=== PATIENT | female | born 1990 | race Caucasian/White ===

== ENCOUNTER 2020-09-07 12:51 | Emergency (ER) | payer OTHER, SELFPAY ==
[2020-09-07 12:57] VITALS: BP 119/68; PULSE 80; RESP 16; TEMP 36.9; O2SAT 99
--- NOTE | 2020-09-07 13:49 | ED.URI ---
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 Patient states that she has been taking Tylenol and using Chloraseptic spray with no improvement in her sore throat, rates her pain as 4/10 describes as aching with increase in her pain with swallowing.Patient denies any ear pain, acute cough, or any known fevers, states nasal drainage and post nasal drainage of clear to yellow tinged with some facial pressure. MD elicited complaint: sore throat, rhinorrhea, nasal congestion and other (pressure to face) Pertinent past history: sinusitis and other (bronchitis, tobacco abuse) Onset (ago): week(s) (2 weeks sinus, 2 days sore throat) Consistency: constant Severity: moderate Pain scale (0-10): 4 Description of mucous: clear and yellow Able to tolerate fluids by mouth: Yes Exacerbating factors: swallowing Relieving factors: nothing Associated symptoms: rhinorrhea, nasal congestion and sore throat Treatments prior to arrival: acetaminophen and other (chloraseptic spray) Related Data Allergies Allergy/AdvReac Type Severity Reaction Status Date / Time No Known Allergies Allergy Verified 09/07/20 13:09 Review of Systems Review of Systems: Narrative: CONSTITUTIONAL: Denies fever, chills, or sweats. EYES: Denies visual changes, redness, or discharge. ENT: Positive for rhinorrhea,sinus congestion,facial pressure, sore throat, no otalgia. CARDIOVASCULAR: Denies chest pain, palpitations, or edema. RESPIRATORY: Denies cough or dyspnea. GASTROINTESTINAL: Denies abdominal pain, nausea, vomiting, or diarrhea. GENITOURINARY: Denies dysuria or hematuria. SKIN: Denies rash or itching. MUSCULOSKELETAL: Denies back pain, joint pain, or myalgia. NEUROLOGIC: Denies headache, numbness, or weakness. PSYCHIATRIC:Positive history of anxiety or depression. All systems reviewed & are unremarkable except as noted in HPI and below [facility] Past Medical History Medical History (Updated 09/08/20 @ 09:48 by Sade Giang NP) Anxiety and depression Bronchitis Migraines Sinusitis Surgical History Surgical History (Updated 09/08/20 @ 09:45 by Sade Giang NP) History of tubal ligation Previous section Family History Family History (Updated 09/08/20 @ 09:47 by Sade Giang NP) Other No significant family history Social History Social History (Updated 09/08/20 @ 09:46 by Sade Giang NP) Smoking packs per day: 0.5 Smoking cigarettes per day: 10.0 Years smoked: 13 Smoking pack-years: 6.50 Smoking status: Current every day smoker Tobacco type: cigarettes Alcohol intake: current Alcohol use details: social Substance use: never Living arrangements: with family Occupation/Education: other 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 There is no relevant family history pertinent to the presenting complaint Exam Narrative: Exam Narrative: GENERAL: Well-appearing, well-nourished, and in no acute distress. HEAD: Normocephalic, atraumatic. EYES: PERRLA and EOMI. ENT: Nares red with swollen turbinates, clear to yellow tinged rhinorrhea no epistaxis. Mucous membranes moist.TM's normal with dull light reflex, throat red with no lesions or exudate no acute tonsil swelling, post nasal drainage present in back of throat. NECK: Supple.no lymphadenopathy CHEST: Clear to auscultation. N
== END 2020-09-07 14:05 | disposition home or self-care (01) ==
PROVIDERS: Emergency Provider Registered Nurse
DX: J32.9 Chronic sinusitis, unspecified (principal); J02.9 Acute pharyngitis, unspecified; F17.210 Nicotine dependence, cigarettes, uncomplicated
CPT/HCPCS: 87081; 87880; 99213; G0463

== ENCOUNTER 2021-03-30 17:38 | Emergency (ER) | payer OTHER, SELFPAY ==
[2021-03-30 17:44] VITALS: BP 121/73; PULSE 95; RESP 16; TEMP 36.6; O2SAT 100
[2021-03-30 17:57] VITALS: BP 121/73; PULSE 95; RESP 16; TEMP 36.6; O2SAT 100
--- NOTE | 2021-03-30 18:11 | ED.URI ---
HPI - URI/Sore Throat General Chief Complaint: Upper Respiratory Infection Stated Complaint: sore throat body aches Source: patient Mode of arrival: ambulatory Limitations: no limitations History of Present Illness HPI Narrative: 30-year-old female presents to [facility] with complaints of nonproductive cough, shortness of breath, wheezing, body aches and headache for the past 4 days. Patient reports that 3 of her children currently have strep throat. Patient reports that she gets tested weekly for Covid at her job and her Covid test was negative today. Patient is a smoker. Patient denies recent travel. Patient has been taking [id number] DayQuil with minimal relief. MD elicited complaint: cough Onset (ago): day(s) (4) Able to tolerate fluids by mouth: Yes Related Data Allergies Allergy/AdvReac Type Severity Reaction Status Date / Time No Known Allergies Allergy Verified 03/30/21 17:56 Review of Systems Constitutional: Constitutional: Reports chills, Denies fatigue, Denies fever(s) and Denies weakness ENT: Denies dysphagia, Denies dizziness, Denies epistaxis and Reports sore throat Cardiovascular: Cardiovascular: Denies chest pain, Denies rapid heart rate and Denies radiating jaw, neck or arm pain Respiratory: Respiratory: Denies chest congestion, Reports cough, Reports dyspnea and Reports wheezing Gastrointestinal: Gastrointestinal: Denies abdominal pain, Denies diarrhea, Denies nausea and Denies vomiting Integumentary/Breasts: Skin/Breast: Denies rash PMFSH Past Medical History Medical History Anxiety and depression Bronchitis Migraines Sinusitis Surgical History Surgical History History of tubal ligation Previous section Family History Family History Other No significant family history Social History Social History Smoking packs per day: 0.5 Smoking cigarettes per day: 10.0 Years smoked: 13 Smoking pack-years: 6.50 Smoking status: Current every day smoker Tobacco type: cigarettes Alcohol intake: current Alcohol use details: social Substance use: never 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 There is no relevant family history pertinent to the presenting complaint. Exam Const: General: healthy appearing and no acute distress Orientation/consciousness: patient oriented x3 HENMT: Head: normal to inspection Ears: external ears normal General nose exam: Normal external nose present Face and sinus: sinuses nontender Mouth: Yes Normal oral and palatal mucosa present and Yes lip normal Throat: uvula midline Other: Mild erythema noted to posterior pharynx. Mild erythema and swelling noted to bilateral tonsils. Neck: Neck: normal visual inspection Resp: Effort & Inspection: normal respiratory effort and not tachypneic Auscultation: clear to auscultation bilaterally, no rales, no rhonchi and no wheezes Other: Frequent harsh nonproductive cough noted Cardio: Rate: regular rate, not bradycardic and not tachycardic Rhythm: regular rhythm Skin: General skin exam: normal color Rashes: no rashes Wounds: no wounds Neuro: General: patient oriented x3 and moves all extremities Course Vital Signs Vital signs: Vital Signs Temperature 36.6 C 03/30/21 17:44 Pulse Rate 95 03/30/21 17:44 Respiratory Rate 16 03/30/21 17:44 Blood Pressure 121/73 03/30/21 17:44 Pulse Oximetry 100 03/30/21 17:44 Temperature 36.6 C 03/30/21 17:57 Pulse Rate 95 03/30/21 17:57 Respiratory Rate 16 03/30/21 17:57 Blood Pressure 121/73 03/30/21 17:57 Pulse Oximetry
== END 2021-03-30 18:18 | disposition home or self-care (01) ==
PROVIDERS: Emergency Provider Nurse Practitioner Family
DX: J40 Bronchitis, not specified as acute or chronic (principal); J02.9 Acute pharyngitis, unspecified; F17.210 Nicotine dependence, cigarettes, uncomplicated
CPT/HCPCS: 87081; 87880; 99213; G0463

== ENCOUNTER 2021-10-17 08:52 | Emergency (ER) | payer OTHER, SELFPAY ==
--- NOTE | ~2021-10-17 | XR_ITS ---
EXAMINATION: XR hand RT min 3V DATE: 10/17/2021 09:15 INDICATION: Right hand injury and pain. TECHNIQUE: 3 views of right hand were obtained. COMPARISON: None. FINDINGS: Bone alignment is normal. No fracture. Joint spaces are well maintained. IMPRESSION: 1. Normal right hand. Reviewed, dictated and finalized at location A. [employer] IMPRESSION: 1. Normal right hand.
[2021-10-17 08:58] VITALS: BP 110/63; PULSE 108; RESP 16; TEMP 36.9; O2SAT 98
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
[2021-10-17] MEDS: KETOROLAC (*BKC) 60 MG/2 ML VIAL IM (09:24)
== END 2021-10-17 09:46 | disposition home or self-care (01) ==
PROVIDERS: Emergency Provider Nurse Practitioner Family
DX: S69.91XA Unspecified injury of right wrist, hand and finger(s), initial encounter (principal); W23.0XXA Caught, crushed, jammed, or pinched between moving objects, initial encounter; F41.9 Anxiety disorder, unspecified; F32.9 Major depressive disorder, single episode, unspecified; F17.210 Nicotine dependence, cigarettes, uncomplicated
CPT/HCPCS: 73130; 96372; 99213; G0463; J1885

== ENCOUNTER 2021-11-12 19:38 | Emergency (ER) | payer OTHER, SELFPAY ==
[2021-11-12 19:44] VITALS: BP 124/69; PULSE 98; RESP 16; TEMP 37.1; O2SAT 100
--- NOTE | 2021-11-12 19:55 | ED.DENTAL ---
HPI - Dental/Oral General Stated complaint: poss thrush Time Seen by Provider: 11/12/21 19:55 Source: patient and RN notes reviewed History of Present Illness HPI Narrative: Patient is a 31-year-old female who presents the urgent care with complaints of possible thrush of the tongue. Patient states that she had it approximately 2 months ago after starting several new medications. Denies of being on a steroid or the use of an inhaler. Patient states she noticed it just a couple days ago and is try to brush the tongue really hard and has had no improvement. No other acute complaints. Denies a sore throat. No acute distress noted. Patient aware of the care. Some parts of this dictation were generated by voice recognition software and may contain typographical and/or grammatical inaccuracies. Related Data Home Medications Medication Instructions Recorded Confirmed hydroxyzine pamoate 50 mg PO Q6-8H 10/17/21 10/17/21 naltrexone 50 mg PO DAILY 10/17/21 10/17/21 quetiapine 200 mg PO HS 10/17/21 10/17/21 venlafaxine 37.5 mg PO DAILY 10/17/21 10/17/21 Allergies Allergy/AdvReac Type Severity Reaction Status Date / Time tramadol Allergy Hallucinati Verified 11/12/21 19:41 ng Review of Systems Review of Systems: CONSTITUTIONAL: Denies fever, chills, or sweats. EYES: Denies visual changes, redness, or discharge. ENT: Denies rhinorrhea, congestion, sore throat, or otalgia. Reports of possible oral thrush CARDIOVASCULAR: Denies chest pain, palpitations, or edema. RESPIRATORY: Denies cough or dyspnea. GASTROINTESTINAL: Denies abdominal pain, nausea, vomiting, or diarrhea. GENITOURINARY: Denies dysuria or hematuria. SKIN: Denies rash or itching. MUSCULOSKELETAL: Denies back pain, joint pain, or myalgia. NEUROLOGIC: Denies headache, numbness, or weakness. All other systems reviewed are negative, except as documented in HPI. [facility] Past Medical History Medical History Anxiety and depression Bronchitis Migraines Sinusitis Surgical History Surgical History History of tubal ligation Previous section Family History Family History Other No significant family history Social History Social History Smoking packs per day: 0.5 Smoking cigarettes per day: 10.0 Years smoked: 13 Smoking pack-years: 6.50 Smoking status: Current every day smoker Tobacco type: cigarettes Alcohol intake: current Alcohol use details: social Substance use: never Additional occupation/education comments: [employer] Gender identity (if verbalized by the patient): Female Comments At the time of my signature, I reviewed and agree with the nursing past medical, surgical, social, and family history. There is no relevant family history pertinent to the patient complaint. Exam Narrative: GENERAL: This is a well-nourished, well-developed patient, in no apparent distress. HEAD: normocephalic, atraumatic. EYES: PERRL. Sclera clear/white. Vision is grossly intact. EARS: External ears normal, auditory canals clear and without drainage, TMs normal without perforation. Hearing grossly intact. NOSE: External nose normal with no obvious nasal discharge, nares without redness, no rhinorrhea. THROAT: Mucous membranes moist, posterior pharynx clear. Very mild white hairy tongue NECK: Neck supple CARDIOVASCULAR: Regular rate and rhythm without murmurs, gallops, or rubs. RESPIRATORY: Clear to auscultation. Breath sounds equal bilaterally. No wheezes, rales, or rhonchi. SKIN: warm, intact with no suspicious lesions or rash, good texture and turgor. NEURO: awake, alert, and oriented to person, place and time. There were no obvious focal neurologic abnormalities. EXTREMITIES: No clubb
[2021-11-12 19:57] VITALS: BP 124/69; PULSE 98; RESP 16; TEMP 37.1; O2SAT 100
== END 2021-11-12 20:05 | disposition home or self-care (01) ==
PROVIDERS: Emergency Provider Nurse Practitioner Family
DX: B37.0 Candidal stomatitis (principal); F17.210 Nicotine dependence, cigarettes, uncomplicated; F41.9 Anxiety disorder, unspecified; F32.A Depression, unspecified
CPT/HCPCS: 99213; G0463

== ENCOUNTER 2021-12-19 08:52 | Emergency (ER) | payer OTHER, SELFPAY ==
[2021-12-19 09:01] VITALS: BP 120/65; PULSE 82; RESP 16; TEMP 36.6; O2SAT 98
--- NOTE | 2021-12-19 09:01 | ED.EAR ---
HPI - Ear Problem General Chief complaint: Ear Stated complaint: Ear Pain Time Seen by Provider: 12/19/21 09:00 Source: patient, RN notes reviewed and old records reviewed Mode of arrival: ambulatory Limitations: no limitations History of Present Illness HPI Narrative: 31 year old female who presents to [facility] care with complaints of left ear pain for the past week. Patient denies any cough or congestion states some sinus drainage but has history of environmental allergies. Patient reports that she has been taking Ibuprofen and Tylenol for her discomfort. Patient reports that she has decreased hearing to her left ear. MD Complaint: ear pain Location: left ear Duration: constant Associated symptoms ear: decreased hearing and external ear tenderness Treatment prior to arrival: oral analgesic Related Data Home Medications Medication Instructions Recorded Confirmed hydroxyzine pamoate 50 mg PO Q4H PRN 10/17/21 12/19/21 quetiapine 200 mg PO HS 10/17/21 12/19/21 venlafaxine 37.5 mg PO DAILY 10/17/21 12/19/21 trazodone 50 mg PO HS 11/12/21 12/19/21 Allergies Allergy/AdvReac Type Severity Reaction Status Date / Time No Known Allergies Allergy Verified 12/19/21 09:15 Review of Systems Review of Systems: CONSTITUTIONAL: Denies fever, chills, or sweats. EYES: Denies visual changes, redness, or discharge. ENT: Positive rhinorrhea, minimal nasal congestion,no sore throat, positive for left otalgia. CARDIOVASCULAR: Denies chest pain, palpitations, or edema. RESPIRATORY: Denies cough or dyspnea. GASTROINTESTINAL: Denies abdominal pain, nausea, vomiting, or diarrhea. GENITOURINARY: Denies dysuria or hematuria. SKIN: Denies rash or itching. MUSCULOSKELETAL: Denies back pain, joint pain, or myalgia. NEUROLOGIC: Denies headache,no numbness, or weakness. PSYCHIATRIC: Positive anxiety or depression. All systems reviewed & are unremarkable except as noted in HPI and below PMFSH Past Medical History Medical History Anxiety and depression Bronchitis Migraines Sinusitis Surgical History Surgical History History of tubal ligation Previous section Family History Family History Other No significant family history Social History Social History (Updated 12/19/21 @ 09:30 by Sade Giang NP) Smoking packs per day: 0.5 Smoking cigarettes per day: 10.0 Years smoked: 13 Smoking pack-years: 6.50 Smoking status: Current every day smoker Tobacco type: cigarettes Alcohol intake: former Alcohol use details: presently attending AA Substance use: never 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 There is no relevant family history pertinent to the presenting complaint Exam Narrative: GENERAL: Well-appearing, well-nourished, and in no acute distress. HEAD: Normocephalic, atraumatic. EYES: PERRLA and EOMI. ENT: Nares with minimal redness with clear rhinorrhea no epistaxis. Mucous membranes moist.Right TM normal with good light reflex, left TM pale canal red and excoriated with crusting to canal and also irritation to outer ear, throat ink with no lesions or exudates or tonsil swelling NECK: Supple. no lymphadenopathy CHEST: Clear to auscultation. No respiratory distress.SAO2 98% on room air HEART: Regular rate and rhythm. No murmur heard. Normal peripheral pulses. ABDOMEN: Soft, nontender, nondistended, normal active bowel sounds. EXTREMITIES: Normal range of motion. No edema. SKIN: Warm, dry, no rash. NEURO: No focal deficits. Alert and oriented x3. Course Course Level of Care: Express Care Visit Vital Signs Vital signs: Vital Signs Thompson
== END 2021-12-19 09:25 | disposition home or self-care (01) ==
PROVIDERS: Emergency Provider Registered Nurse
DX: H60.392 Other infective otitis externa, left ear (principal); F17.210 Nicotine dependence, cigarettes, uncomplicated
CPT/HCPCS: 99213; G0463

== ENCOUNTER 2022-08-04 13:19 | Emergency (ER) | payer OTHER, SELFPAY ==
--- NOTE | 2022-08-04 13:21 | ED.URI ---
HPI - URI/Sore Throat General Chief Complaint: Upper Respiratory Infection Stated Complaint: cold flu Time Seen by Provider: 08/04/22 13:21 Source: patient and RN notes reviewed History of Present Illness HPI Narrative: patient is a 32-year-old female who presents to urgent care with complaints of cold and flu-like symptoms for the last 4 days. Patient denies any recent fevers. Reports of a cough and nasal congestion. Patient has been taking Tylenol. No other acute complaints. No acute distress noted. Patient aware of the plan of care. Some parts of this dictation were generated by voice recognition software and may contain typographical and/or grammatical inaccuracies. Related Data Home Medications Medication Instructions Recorded Confirmed hydroxyzine pamoate 50 mg capsule 50 mg PO Q4H PRN Anxiety 10/17/21 12/19/21 quetiapine 200 mg tablet 200 mg PO HS 10/17/21 12/19/21 venlafaxine 37.5 mg 37.5 mg PO DAILY 10/17/21 12/19/21 capsule,extended release 24 hr trazodone 50 mg tablet 50 mg PO HS 11/12/21 12/19/21 Allergies Allergy/AdvReac Type Severity Reaction Status Date / Time No Known Allergies Allergy Verified 08/04/22 13:38 Review of Systems Review of Systems: CONSTITUTIONAL: Denies fever, chills, or sweats. EYES: Denies visual changes, redness, or discharge. ENT: reports nasal congestion postnasal drainage CARDIOVASCULAR: Denies chest pain, palpitations, or edema. RESPIRATORY: Reports cough without dyspnea GASTROINTESTINAL: Denies abdominal pain, nausea, vomiting, or diarrhea. GENITOURINARY: Denies dysuria or hematuria. SKIN: Denies rash or itching. MUSCULOSKELETAL: Denies back pain, joint pain, or myalgia. NEUROLOGIC: Denies headache, numbness, or weakness. All other systems reviewed are negative, except as documented in HPI. 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 There is no relevant family history pertinent to the patient complaint. Exam Narrative: GENERAL: This is a well-nourished, well-developed patient, in no apparent distress. HEAD: normocephalic, atraumatic. EYES: PERRL. Sclera clear/white. Vision is grossly intact. EARS: External ears normal, auditory canals clear and without drainage, TMs normal without perforation. Hearing grossly intact. NOSE: External nose normal with no obvious nasal discharge, nares without redness, no rhinorrhea. THROAT: Mucous membranes moist, posterior pharynx clear. moderate postnasal drainage NECK: Neck supple, non-tender without lymphadenopathy CARDIOVASCULAR: Regular rate and rhythm without murmurs, gallops, or rubs. RESPIRATORY: Clear to auscultation. Breath sounds equal bilaterally. No wheezes, rales, or rhonchi. SKIN: warm, intact with no suspicious lesions or rash, good texture and turgor. NEURO: awake, alert, and oriented to person, place and time. There were no obvious focal neurologic abnormalities. EXTREMITIES: No clubbing, cyanosis, or edema. Course C
[2022-08-04 13:24] VITALS: BP 113/71; PULSE 70; RESP 16; TEMP 36.9; O2SAT 99
== END 2022-08-04 13:57 | disposition home or self-care (01) ==
PROVIDERS: Emergency Provider Nurse Practitioner Family; PCP Physician Assistant
DX: J06.9 Acute upper respiratory infection, unspecified (principal); F17.210 Nicotine dependence, cigarettes, uncomplicated
CPT/HCPCS: 99211; G0463

== ENCOUNTER 2022-08-13 16:00 | Emergency (ER) | payer OTHER, SELFPAY ==
[2022-08-13 16:07] VITALS: BP 103/59; PULSE 90; RESP 16; TEMP 36.7; O2SAT 98
--- NOTE | 2022-08-13 17:16 | ED.GENADULT ---
HPI - General Adult General Chief complaint: Upper Respiratory Infection Stated complaint: upper respiratory Source: patient Mode of arrival: ambulatory Limitations: no limitations History of Present Illness HPI narrative: Patient presents for evaluation of sick symptoms for just over a week. She indicates she was evaluated here about a week ago same symptoms was told she had upper respiratory infection. Her symptoms have persisted. She now reports bilateral maxillary and frontal sinus pressure with mucopurulent discharge from her nares, and productive cough of green sputum. She has mild shortness of breath. She denies any fever, chills, nausea, vomiting. Her children have similar symptoms and were told that they have strep and a viral upper respiratory infection. 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 She states she took a COVID test three days ago which was negative. She used her child's albuterol inhaler and states that it did help her symptoms. She smokes half a pack per day. She has had COVID in the past. She is taking OTC agents with mild improvement in her symptoms thereafter. Related Data Home Medications Medication Instructions Recorded Confirmed hydroxyzine pamoate 50 mg capsule 50 mg PO Q4H PRN Anxiety 10/17/21 08/04/22 quetiapine 200 mg tablet 200 mg PO HS 10/17/21 08/04/22 venlafaxine 37.5 mg 37.5 mg PO DAILY 10/17/21 08/04/22 capsule,extended release 24 hr trazodone 50 mg tablet 50 mg PO HS 11/12/21 08/04/22 buspirone 7.5 mg tablet mg 08/13/22 Allergies Allergy/AdvReac Type Severity Reaction Status Date / Time No Known Allergies Allergy Verified 08/04/22 13:38 Review of Systems Review of Systems: CONSTITUTIONAL: Denies fever, chills, or sweats. EYES: Denies visual changes, redness, or discharge. ENT: Reports sinus congestion mucopurulent discharge from her nares. CARDIOVASCULAR: Denies chest pain, palpitations, or edema. RESPIRATORY: Reports productive cough of green sputum with mild shortness of breath GASTROINTESTINAL: Denies abdominal pain, nausea, vomiting, or diarrhea. GENITOURINARY: Denies dysuria or hematuria. SKIN: Denies rash or itching. MUSCULOSKELETAL: Denies back pain, joint pain, or myalgia. NEUROLOGIC: Denies headache, numbness, dizziness, or weakness. PSYCHIATRIC: Denies anxiety or depression. 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 HEAD: Normocephalic, atraumatic. EYES: PERRLA and EOMI. ENT: Nares clear, no rhinorrhea or epistaxis. Mucous membranes moist. Oropharynx without tonsillar hypertrophy exudate or other lesions. Bilateral TMs pearly lujan nonbulging NECK: Supple. No adenopathy or masses. No carotid bruits or JVD CHEST: Occasional cough on exam. Clear to auscultation. No respiratory distress. No wheezes rales or rhonchi HEART: Regular rate and rhythm. No murmur heard. Normal peripheral pulses. ABDOMEN: Soft, nontender, nondistended, normal active bowel sounds. EXTREMITIES: No
== END 2022-08-13 17:18 | disposition home or self-care (01) ==
PROVIDERS: Emergency Provider Nurse Practitioner; PCP Physician Assistant
DX: J32.9 Chronic sinusitis, unspecified (principal); F17.210 Nicotine dependence, cigarettes, uncomplicated; F41.9 Anxiety disorder, unspecified; F32.A Depression, unspecified; Z86.16 Personal history of COVID-19
CPT/HCPCS: 99213; G0463

== ENCOUNTER 2023-01-18 19:19 | Emergency (ER) | payer OTHER, SELFPAY ==
--- NOTE | 2023-01-18 19:26 | ED.EAR ---
HPI - Ear Problem General Stated complaint: cut earring off the ear Source: patient and RN notes reviewed History of Present Illness HPI Narrative: 32 yo F presents to urgent care with complaints of a stuck earring in the back of her right upper ear cartilage. Pt states she had her friend attempt to remove it but couldn't get it. Pt denies any inner ear pain, fevers, chills, or other complaints. Pt states she is currently taking Augmentin for a dental infection. Pt also states she is only supposed to take stainless steal in her ears but this was a $5 earring she bought. Related Data Home Medications Medication Instructions Recorded Confirmed hydroxyzine pamoate 50 mg capsule 50 mg PO Q4H PRN Anxiety 10/17/21 08/04/22 quetiapine 200 mg tablet 200 mg PO HS 10/17/21 08/04/22 venlafaxine 37.5 mg 37.5 mg PO DAILY 10/17/21 08/04/22 capsule,extended release 24 hr trazodone 50 mg tablet 50 mg PO HS 11/12/21 08/04/22 buspirone 7.5 mg tablet mg 08/13/22 venlafaxine 150 mg 150 mg PO DAILY 01/18/23 01/18/23 capsule,extended release 24 hr Allergies Allergy/AdvReac Type Severity Reaction Status Date / Time No Known Allergies Allergy Verified 01/18/23 19:37 Review of Systems Review of Systems: CONSTITUTIONAL: Denies fever, chills, or sweats. EYES: Denies visual changes, redness, or discharge. ENT: Denies otalgia and sore throat CARDIOVASCULAR: Denies chest pain, palpitations, or edema. RESPIRATORY: Denies cough or dyspnea. GASTROINTESTINAL: Denies abdominal pain, nausea, vomiting, or diarrhea. GENITOURINARY: Denies dysuria or hematuria. SKIN: earring stuck in right ear cartilage MUSCULOSKELETAL: Denies back pain, joint pain, or myalgia. NEUROLOGIC: Denies headache, numbness, or weakness. Pertinent positives per HPI. 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 There is no relevant family history pertinent to the patient complaint. Exam Narrative: GENERAL: This is a well-nourished, well-developed patient, in no apparent distress. HEAD: normocephalic, atraumatic. EYES: Sclera clear/white. Vision is grossly intact. EARS:circular, ring earring post stuck in back of right helix with mild swelling NOSE: External nose normal with no obvious nasal discharge, nares without redness, no rhinorrhea. THROAT: Mucous membranes moist, posterior pharynx clear. NECK: Neck supple, non-tender without lymphadenopathy, masses or thyromegaly. CARDIOVASCULAR: Regular rate RESPIRATORY: No respiratory distress SKIN: warm, intact with no suspicious lesions or rash, good texture and turgor. NEURO: awake, alert, and oriented to person, place and time. There were no obvious focal neurologic abnormalities. Course Course Level of Care: Express Care Visit Vital Signs Vital signs: reviewed. Procedures Foreign Body Removal Foreign Body #1: Foreign Body Removal Da
[2023-01-18 19:27] VITALS: BP 99/58; PULSE 85; RESP 18; TEMP 37.1; O2SAT 98
== END 2023-01-18 19:44 | disposition home or self-care (01) ==
PROVIDERS: Emergency Provider Nurse Practitioner Family; PCP Physician Assistant
DX: S01.341A Puncture wound with foreign body of right ear, initial encounter (principal); X58.XXXA Exposure to other specified factors, initial encounter; F41.9 Anxiety disorder, unspecified; F32.A Depression, unspecified
CPT/HCPCS: 99212; G0463

== ENCOUNTER 2023-04-28 09:14 | Emergency (ER) | payer OTHER, SELFPAY ==
[2023-04-28 09:20] VITALS: BP 107/64; PULSE 93; RESP 16; TEMP 36.5; O2SAT 99
--- NOTE | 2023-04-28 09:32 | ED.URI ---
HPI - URI/Sore Throat General Chief Complaint: Upper Respiratory Infection Stated Complaint: Shortness of Breath/Body Ache/Fever History of Present Illness HPI Narrative: Patient presents with cough productive at times states she had a fever this morning no shortness of breath and no chest pain. Patient is a 10 year half a pack a day smoker. Patient states all of her children were in and diagnosed with upper respiratory symptoms 2 days ago. Patient reports her symptoms started 2 days ago and she is not taking anything [id number] for her symptoms. Related Data Home Medications Medication Instructions Recorded Confirmed gabapentin 300 mg capsule 300 mg PO TID 01/18/23 01/18/23 olanzapine 5 mg disintegrating 5 mg translingual DAILY 01/18/23 01/18/23 tablet trazodone 100 mg tablet 100 mg PO DAILY 01/18/23 01/18/23 venlafaxine 75 mg capsule,extended 75 mg PO DAILY 01/18/23 04/28/23 release 24 hr dextroamphetamine-amphetamine 10 04/28/23 04/28/23 mg tablet Allergies Allergy/AdvReac Type Severity Reaction Status Date / Time No Known Allergies Allergy Verified 01/18/23 19:37 Review of Systems Review of Systems: CONSTITUTIONAL: Denies chills, or sweats. Reports fever and generalized body aches EYES: Denies visual changes, redness, or discharge. ENT: Denies otalgia. Reports nasal congestion runny nose and sore throat CARDIOVASCULAR: Denies chest pain, palpitations, or edema. RESPIRATORY: Denies dyspnea. Reports occasional cough GASTROINTESTINAL: Denies abdominal pain, nausea, vomiting, or diarrhea. GENITOURINARY: Denies dysuria or hematuria. SKIN: Denies rash or itching. MUSCULOSKELETAL: Denies back pain, joint pain, or myalgia. Reports generalized body aches NEUROLOGIC: Denies headache, numbness, or weakness. PSYCHIATRIC: Denies anxiety or depression. 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 There is no relevant family history pertinent to the presenting complaint Exam Narrative: The patient is a well-developed, well-nourished in no acute distress. SKIN: Skin is warm and dry without erythema, swelling or exudate. There is good turgor. No tenting. HEAD: Atraumatic. Normocephalic. No temporal or scalp tenderness. EYES: Moist and bright. Sclera and conjunctivae normal. No discharge. PERRLA. Extraocular motions intact. Gross visual acuity intact. EARS: Pinna is normal shape and contour. Clear external auditory canals. TM pearly fan with good cone of light, no erythema or suppuration. Bilateral cerumen noted no gross hearing deficit. NOSE: pink, moist mucosa with good air movement. Clear rhinorrhea without nasal flaring. Septum midline. Mouth: moist mucous membranes. THROAT; mild erythema noted to posterior oropharynx with moderate postnasal drainage. Without exudate or ulceration.. Uvula midline. Normal movement of soft palate. NECK: Supple and nontender with full
== END 2023-04-28 09:50 | disposition home or self-care (01) ==
PROVIDERS: Emergency Provider Nurse Practitioner Family; PCP Physician Assistant
DX: J06.9 Acute upper respiratory infection, unspecified (principal); Z20.822 Contact with and (suspected) exposure to COVID-19; F17.210 Nicotine dependence, cigarettes, uncomplicated; F41.9 Anxiety disorder, unspecified; F32.A Depression, unspecified
CPT/HCPCS: 87426; 87804; 99213; C9803; G0463

== ENCOUNTER 2023-05-06 14:03 | Emergency (ER) | payer OTHER, SELFPAY ==
[2023-05-06 14:09] VITALS: BP 93/58; PULSE 83; RESP 20; TEMP 37; O2SAT 100
--- NOTE | 2023-05-06 14:09 | ED.URI ---
HPI - URI/Sore Throat General Chief Complaint: Upper Respiratory Infection Stated Complaint: Upper respiratory/aches Time Seen by Provider: 05/06/23 14:16 Source: patient, RN notes reviewed and old records reviewed Mode of arrival: ambulatory Limitations: no limitations History of Present Illness HPI Narrative: 32-year-old female presents to the [facility] with complaints of cough and congestion. States that she has had low-grade fevers of 99. Has been taking NyQuil and DayQuil. Tried taking Benadryl, Tylenol, ibuprofen and [id number] cough medicine. PER medical record patient's symptoms started on the 26 April 10 days ago. Related Data Home Medications Medication Instructions Recorded Confirmed gabapentin 300 mg capsule 300 mg PO TID 01/18/23 05/06/23 olanzapine 5 mg disintegrating 5 mg translingual DAILY 01/18/23 05/06/23 tablet trazodone 100 mg tablet 100 mg PO DAILY 01/18/23 05/06/23 venlafaxine 75 mg capsule,extended 75 mg PO DAILY 01/18/23 05/06/23 release 24 hr dextroamphetamine-amphetamine 10 10 mg PO BID 04/28/23 05/06/23 mg tablet pilocarpine HCl 5 mg tablet 5 mg PO BID 05/06/23 05/06/23 Allergies Allergy/AdvReac Type Severity Reaction Status Date / Time No Known Allergies Allergy Verified 05/06/23 14:14 Review of Systems Review of Systems: All systems reviewed & are unremarkable except as noted in HPI and below Constitutional: Constitutional: Reports no additional constitutional complaints Eyes: Eyes: Reports no additional eye complaints ENT: Reports system reviewed and no additional complaints, except as documented Cardiovascular: Cardiovascular: Reports no additional cardiovascular complaints, Denies chest pain and Denies dyspnea Respiratory: Respiratory: Reports as per HPI, Reports chest congestion, Reports cough and Denies dyspnea Gastrointestinal: Gastrointestinal: Reports no additional gastrointestinal complaints, Denies abdominal pain, Denies nausea and Denies vomiting Musculoskeletal: Musculoskeletal: Reports no additional musculoskeletal complaints Integumentary/Breasts: Skin/Breast: Reports system reviewed and no additional complaints, except as docu Neurologic: Reports system reviewed and no additional complaints, except as documented Psychiatric: Psychiatric: Reports no additional psychiatric complaints Allergic/Immunologic: Allergic/Immunologic: Reports no additional allergic/immunologic complaints PMFSH Past Medical History Medical History Anxiety and depression Bronchitis Migraines Sinusitis Surgical History Surgical History History of tubal ligation Previous section Family History Family History Other No significant family history Social History Social History Smoking packs per day: 0.5 Smoking cigarettes per day: 10.0 Years smoked: 13 Smoking pack-years: 6.50 Smoking status: Current every day smoker Tobacco type: cigarettes Alcohol intake: former Alcohol use details: presently attending AA Substance use: never Living arrangements: with family 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 There is no relevant family history pertinent to the patient complaint. Exam Const: General: cooperative, healthy appearing, comfortable, no acute distress, well developed, alert and well nourished Nutritional Appearance: well nourished Orientation/consciousness: patient oriented x3 Limitations: no limitations HENMT: Head: normal to inspection Ears: hearing grossly normal bi
== END 2023-05-06 14:45 | disposition home or self-care (01) ==
PROVIDERS: Emergency Provider Nurse Practitioner; PCP Physician Assistant
DX: J06.9 Acute upper respiratory infection, unspecified (principal); F17.210 Nicotine dependence, cigarettes, uncomplicated
CPT/HCPCS: 99213; G0463

== ENCOUNTER 2024-05-06 11:20 | Emergency (ER) | payer OTHER, SELFPAY ==
[2024-05-06 11:24] VITALS: BP 110/64; PULSE 102; RESP 20; TEMP 36.6; O2SAT 98
--- NOTE | 2024-05-06 11:32 | ED.GENADULT ---
HPI - General Adult General Chief complaint: Headache Stated complaint: migraine Time Seen by Provider: 05/06/24 11:34 Source: patient Mode of arrival: ambulatory Limitations: no limitations History of Present Illness HPI narrative: 33 y/o female presented for c/o migraine. Onset yesterday. Taking Tylenol and ibuprofen without relief. Last dose of ibuprofen was 6 hours ago per pt. Endorses light sensitivity, nausea and vomiting. Denies nasal congestion, sore throat, or fever. Says she is scheduled with neurology but does not know when or where. States she has had migraines in the past that improve with Toradol shot. Related Data Home Medications Medication Instructions Recorded Confirmed gabapentin 300 mg capsule 300 mg PO TID 01/18/23 05/06/24 olanzapine 5 mg disintegrating 5 mg translingual DAILY 01/18/23 05/06/24 tablet venlafaxine 75 mg capsule,extended 75 mg PO BID 01/18/23 05/06/24 release 24 hr dextroamphetamine-amphetamine 10 10 mg PO BID 04/28/23 05/06/24 mg tablet pilocarpine HCl 5 mg tablet 5 mg PO BID 05/06/23 05/06/24 dextroamphetamine-amphetamine 30 30 mg PO DAILY 05/06/24 05/06/24 mg tablet paliperidone palmitate 156 mg/mL mg IM WEEKLY 05/06/24 intramuscular syringe (Invega Sustenna) venlafaxine 150 mg 150 mg PO DAILY 05/06/24 05/06/24 capsule,extended release 24 hr Allergies Allergy/AdvReac Type Severity Reaction Status Date / Time No Known Allergies Allergy Verified 05/06/23 14:14 Review of Systems Review of Systems: CONSTITUTIONAL: Denies body aches, fever, chills, or sweats. EYES: Denies visual changes, redness, or discharge. ENT: Denies rhinorrhea, congestion, sore throat, or otalgia. CARDIOVASCULAR: Denies chest pain, palpitations, or edema. RESPIRATORY: Denies cough or dyspnea. GASTROINTESTINAL: reports nausea, vomiting Denies abdominal pain, or diarrhea. MUSCULOSKELETAL: Denies back pain, joint pain, or myalgia. NEUROLOGIC: reports headache, Denies numbness, tingling, or weakness. All systems reviewed & are unremarkable except as noted in HPI and below PMFSH Past Medical History Medical History Anxiety and depression Bronchitis Migraines Sinusitis Surgical History Surgical History History of tubal ligation Previous section Family History Family History Other No significant family history Social History Social History Smoking packs per day: 0.5 Smoking cigarettes per day: 10.0 Years smoked: 13 Smoking pack-years: 6.50 Smoking status: Current every day smoker Tobacco type: cigarettes Alcohol intake: former Alcohol use details: presently attending AA Substance use: never Living arrangements: with family Occupation/Education: other Additional occupation/education comments: [employer] Gender identity (if verbalized by the patient): Female Comments At time of signature, I have reviewed and agree with nursing past medical, surgical, social and family history unless otherwise noted. Please see nursing chart for further information. There is no relevant family history pertinent to the presenting complaint Exam Narrative: GENERAL: Well-appearing, and in no acute distress. HEAD: Normocephalic, atraumatic. EYES: EOMI. PERRLA No redness or drainage. Conjunctivae normal. ENT: Mucous membranes pink and moist. No rhinorrhea. TMs normal bilaterally. Throat normal. Uvula midline. NECK: Normal AROM. CHEST: No respiratory distress. Clear to auscultation. HEART: Regular rate and rhythm. No murmur appreciated. Normal peripheral pulses. ABDOMEN: Soft, nontender, nondistended, normal active bowel sounds. SKIN: Warm, dry, no rash. Capillary refill normal. Normal skin turgor. NEURO: No focal deficits. Belen
[2024-05-06] MEDS: KETOROLAC (*BKC) 60 MG/2 ML VIAL IM (11:43)
== END 2024-05-06 12:20 | disposition home or self-care (01) ==
PROVIDERS: Emergency Provider Nurse Practitioner Family; PCP Physician Assistant
DX: R51.9 Headache, unspecified (principal); F17.210 Nicotine dependence, cigarettes, uncomplicated; F41.9 Anxiety disorder, unspecified; F32.A Depression, unspecified
CPT/HCPCS: 96372; 99213; G0463; J1885

== ENCOUNTER 2024-11-18 08:51 | Emergency (ER) | payer OTHER, SELFPAY ==
[2024-11-18 09:01] VITALS: BP 128/73; PULSE 118; RESP 18; TEMP 36.8; O2SAT 97
--- NOTE | 2024-11-18 09:28 | ED.BACK ---
HPI - Back Pain/Injury General Chief Complaint: Back Pain/Injury Stated Complaint: lower back pain Time Seen by Provider: 11/18/24 09:28 Source: patient Mode of arrival: ambulatory Limitations: no limitations History of Present Illness HPI Narrative: 34-year-old female presented for complaint of left lower back pain. Onset yesterday. States symptoms started when she was playing with a child and she lifted her. pain radiated from the left lower back into the hip. She has taken ibuprofen without improvement. Denies pain radiating into the hips or legs, numbness, tingling, weakness of the lower extremities, or change in gait, saddle paresthesia or loss of bowel or bladder. 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 Related Data Home Medications ?Medication ?Instructions ?Recorded ?Confirmed ?Last Taken ?Type gabapentin 300 mg capsule 300 mg PO TID 01/18/23 05/06/24 Unknown History olanzapine 5 mg disintegrating 5 mg translingual DAILY 01/18/23 05/06/24 Unknown History tablet venlafaxine 75 mg capsule,extended 75 mg PO BID 01/18/23 05/06/24 Unknown History release 24 hr dextroamphetamine-amphetamine 10 10 mg PO BID 04/28/23 05/06/24 Unknown History mg tablet pilocarpine HCl 5 mg tablet 5 mg PO BID 05/06/23 05/06/24 Unknown History dextroamphetamine-amphetamine 30 30 mg PO DAILY 05/06/24 05/06/24 Unknown History mg tablet paliperidone palmitate 156 mg/mL mg IM WEEKLY 05/06/24 Unknown History intramuscular syringe (Invega Sustenna) venlafaxine 150 mg 150 mg PO DAILY 05/06/24 05/06/24 Unknown History capsule,extended release 24 hr Allergies Allergy/AdvReac Type Severity Reaction Status Date / Time No Known Allergies Allergy Verified 11/18/24 09:20 Review of Systems Review of Systems: CONSTITUTIONAL: Denies body aches, fever, chills EYES: Denies visual changes CARDIOVASCULAR: Denies chest pain, palpitations, or edema. RESPIRATORY: Denies cough or dyspnea. GASTROINTESTINAL: Denies abdominal pain, nausea, vomiting, or diarrhea. SKIN: Denies rash, itching, or wounds. MUSCULOSKELETAL: reports back pain NEUROLOGIC: Denies headache, numbness, tingling, or weakness. All systems reviewed & are unremarkable except as noted in HPI and below PMFSH Past Medical History Medical History Anxiety and depression Bronchitis Migraines Sinusitis Surgical History Surgical History History of tubal ligation Previous section Family History Family History Other No significant family history Social History Social History Smoking packs per day: 0.5 Smoking cigarettes per day: 10.0 Years smoked: 13 Smoking pack-years: 6.50 Smoking status: Current every day smoker Tobacco type: cigarettes Alcohol intake: former Alcohol use details: presently attending AA Substance use: never Living arrangements: with family Occupation/Education: other Additional occupation/education comments: intermediate Gender identity (if verbalized by the patient): Female Comments At time of signature, I have reviewed and agree with nursing past medical, surgical, social and family history unless otherwise noted. Please see nursing chart for further information. There is no relevant family history pertinent to the presenting complaint Exam Narrative: GENERAL: Well-appearing NECK: Supple. full ROM CHEST: Speaks in full sentences. No respiratory distress. HEART: Regular rate and rhythm. Normal and equal peripheral pulses. MUSC: No Vertebral point tenderness. Mild Left lower lumbar area tenderness with deep palpation. BLEs with normal strength and sensation, normal range of motion. endorses pain to left lower back with movement. No open wounds or obvious deformity; alignment normal, pulse palpable and equal bilaterally, skin warm, dry, pink. Capillary refill less than 3 seconds. Gait steady. SKIN: Warm, dry, no rash. NEURO: Alert and oriented x3. Course Course Emergency Course: Patient is aware of diagnosis, understands and agrees to treatment plan. Anticipatory guidance given. Patient agrees to follow-up as directed and is aware of reasons to seek care at the emergency department. Portions of this record may have been created with voice recognition software Level of Care: Express Care Visit Vital Signs Vital signs: Vital Signs Temperature 98.2 F 11/18/24 09:01 Pulse Rate 118 H 11/18/24 09:01 Respiratory Rate 18 11/18/24 09:01 Blood Pressure 128/73 11/18/24 09:01 Pulse Oximetry 97 11/18/24 09:01 Oxygen Delivery Room Air 11/18/24 09:01 Temperature 98.2 F 11/18/24 09:01 Pulse Rate 118 H 11/18/24 09:01 Respiratory Rate 18 11/18/24 09:01 Blood Pressure 128/73 11/18/24 09:01 Pulse Oximetry 97 11/18/24 09:01 Oxygen Delivery Room Air 11/18/24 09:01 Reviewed MDM - Back Pain/Injury MDM Narrative Medical decision making narrative: Discussed physical exam findings. Shared decision making, deferred imaging at this time. Reviewed prescriptions. Advised supportive measures and s/s to go to the ER. Pt is stable and appropriate for outpt treatment and follow up with pcp. Differential Diagnosis Differential diagnosis: Likely lumbar radiculopathy, sciatica, strain of lumbar region, renal colic, pyelonephritis and discitis Discharge Plan Discharge Clinical Impression: Lumbar radiculopathy Patient Disposition: Home Condition: Stable Instructions: Lumbar Radiculopathy (ED) Additional Instructions: Please follow up with your Primary Care Doctor within 72 hours - call for an appointment. Avoid lifting. pushing. pulling, or anything that worsens the pain. Walking and other gentle exercising several times a week has been shown to improve back pain; bed rest is not recommended. Tylenol 1000mg every 8 hours Take muscle relaxers every 8 hours as needed for muscle spasm- do not drive or make any important decisions while on this medication for it can make you drowsy. Over the counter pain cream like icy/hot or biofreeze, or Salon pas/lidocaine 4% patch. You may apply heat or cold to the area as needed. go to the ER If you experience any worsening pain, swelling, numbness, weakness, problems with bladder or bowel function, weakness or loss of feeling in one or both of your legs, or any other serious concerns. Patient Language: Bengali Prescriptions: New cyclobenzaprine 10 mg tablet 10 mg PO TID PRN (Reason: muscle spasm) Qty: 15 0RF prednisone 20 mg tablet 20 mg PO DAILY Qty: 12 0RF Rx Instructions: take 3 tablets daily for 2 days, then 2 tablets daily for 2 days then 1 tablet daily for 2 days No Action pilocarpine HCl 5 mg tablet 5 mg PO BID venlafaxine 75 mg capsule,extended release 24hr 75 mg PO BID gabapentin 300 mg capsule 300 mg PO TID olanzapine 5 mg tablet,disintegrating 5 mg translingual DAILY dextroamphetamine-amphetamine 10 mg tablet 10 mg PO BID dextroamphetamine-amphetamine 30 mg tablet 30 mg PO DAILY Invega Sustenna 156 mg/mL syringe IM WEEKLY venlafaxine 150 mg capsule,extended release 24hr 150 mg PO DAILY Follow-up/Referrals: Rosa M,ABRAHAM Alvarez [Primary Care Provider] - Stand Alone Forms: Work/School Release IP Time of Disposition: 09:46
--- OUTSIDE RECORDS SUMMARY | 2024-11-18 09:30 | XMS_ITS | Clinical Summary ---
Author Organization [facility] Address [address] [place] [address] Phone Care Team Providers Care Crewman Main Battle [employer] Name Role Phone TESSA GATES Primary Care Provider [phone] DUSTY CUETO, DERIK Unavailable [phone] Reason for Visit and Chief Complaint GENERAL OFFICE VISIT Plan of Treatment No Plan of Treatment Recorded Assessments Includes: Assessments from this encounter No Assessments Recorded Medical Equipment - Implanted Devices Includes: Current Devices No Medical Equipment Recorded Medications Includes: Medications discussed during this encounter and other current Medications Current Medications (continue as prescribed) Venlafaxine HCl ER 37.5 MG Oral Capsule Extended Release 24 Hour 03/10/2021 Provider: TESSA MCKEON Diagnosis: Adjustment disor susana with depressed mood 1 capsule daily Last Documented On 1 4:37PM By Tessa MCKEON ; [facility] Pantoprazole Sodium 20 MG Oral Tablet Delayed Release 03/10/2021 Provider: TESSA MCKEON Diagnosis: Gastro-esophagea l reflux dis with esophagitis, without bleed One tablet daily Last Documented On 1 4:37PM By Tessa MCKEON ; [facility] Medications Administered Includes: Administered Medications from this encounter No Administered Medications Recorded Results Includes: Results discussed during this encounter No Results Recorded For Specified Dates History of Present Illness Includes: History of Present Illness from this encounter No History of Present Illness Recorded Social History No Social History Recorded - Smoking Status Unknown Medical History Includes: Medical History addressed during this encounter No Medical History Recorded Family History Includes: Family History addressed during this encounter No Family History Recorded Review of Systems Includes: Review of Systems from this encounter No Review of Systems Recorded Mental Status Includes: Mental Status from this encounter No Mental Status Recorded Functional Status Includes: Functional Status from this encounter No Functional Status Recorded Physical Exam Includes: Physical Exam from this encounter No Physical Exam Recorded Allergies Includes: Active Allergies No Known Allergies Encounters Encounter Provider Location Date Check-In Time Check- Out Time Diagnosis GENERAL OFFICE VISIT [facility] 1 3:30PM 11:59PM Insurance Includes: Active Insurance Policies Plan Name Member ID Group # Subscriber Relationship Effect patience Dates 1 - [facility] [id number] CADEN QURESHI Self Clinical Notes Includes: Clinical Notes from this encounter No Clinical Notes Recorded
--- OUTSIDE RECORDS SUMMARY | 2024-11-18 09:30 | XMS_ITS ---
Author Organization [facility] Address [address] [place] [address] Care Team Providers Care Special Effects Person Name Role Phone Liana Navarro Primary Care Provider [phone] REASON FOR VISIT Invega Injection Social History Sex Assigned At : Social History Observation Description Sex Assigned At Female Encounters Encounter Location Date Provider Diagnosis [address] [address] 11/10/2024 Liana Navarro Plan Of Treatment Next Appt Details Provider Name:Liana disla, 12/07/2024 03:20:00 PM, [address] [place] [address], [place], [address], Progress Notes * Marycarmen QURESHIDOB:1990 (34 yo F)Acc No.[id number]:11/10/2024 UNLOCKED PROGRESS NOTE Progress Note Patient: Marycarmen BALES Provider: Osmin Navarro, MSN, ELECTROMECHANICAL TECHNOLOGIST, SALES & SERVICE ASSOCIATE-C :1990 A ge:34 Y S ex:Female Date:11/10/2024 Address:[address] [facility] Subjective: * Chief Complaints: * 1 . Invega Injection. * Medical History: Objective: * Vitals: Assessment: Plan: * Treatment: * * Electronic signature of Logan Navarro , [id number] on 11/18/2024 at 09:30 AM CDT Sign off status: Pending * Provider: Osmin Navarro, MSN, ELECTROMECHANICAL TECHNOLOGIST, SALES & SERVICE ASSOCIATE-C Date: 0 11/10/2024 Generated for Noy singh/Carmen/Yadi on: 0 11/18/2024 09:30 AM CDT
--- OUTSIDE RECORDS SUMMARY | 2024-11-18 09:30 | XMS_ITS ---
Author Organization [facility] Address [address] [place] [address] Phone Care Team Providers Care Marketing Consultant Name Role Phone GÓMEZ MIDDLETON-TESSA Wallace Primary Care Provider [phone] DUSTY CUETO, DERIK Unavailable [phone] Plan of Treatment Instructions to patient Intervention and counseling on cessation of tobacco use Last Documented On 1 3:33PM ; [facility] Lose weight Last Documented On 1 3:33PM ; [facility] Assessments Includes: Assessments for all patient encounters Findings Encounter Date Abdominal pain NEW PATIENT EXAM - A DULT with TESSA MIDDLETON-C 03/10/2021 Last Documented On 1 9:04PM ; [facility] Fatigue NEW PATIENT EXAM - ADULT with ST FITZPATRICKJONAH Darshan HARDYP-C 03/10/2021 Last Documented On 1 9:04PM ; [facility] Instructions Includes: Instructions for all patient encounters Instructions to patient Intervention and counseling on cessation of tobacco use Last Documented On 1 3:33PM ; [facility] Lose weight Last Documented On 3:33PM ; [facility] Medical Equipment - Implanted Devices Includes: Current and historical Devices No Medical Equipment Recorded Medications Includes: Current and historical Medications Current Medications (continue as prescribed) Venlafaxine HCl ER 37.5 MG Oral Capsule Extended Release 24 Hour 03/10/2021 Provider: TESSA HARDYP-C Diagnosis: Adjustment disor susana with depressed mood 1 capsule daily Last Documented On 1 4:37PM By Tessa MCKEON ; [facility] Pantoprazole Sodium 20 MG Oral Tablet Delayed Release 03/10/2021 Provider: TESSA MCKEON Diagnosis: Gastro-esophagea l reflux dis with esophagitis, without bleed One tablet daily Last Documented On 1 4:37PM By Tessa MCKEON ; [facility] Medications Administered Includes: Administered Medications in patient's chart No Administered Medications Recorded Results Includes: Results from 11/19/2023 through 11/18/2024 No Results Recorded For Specified Dates History of Present Illness History of Present Illness not supported for this document type No History of Present Illness Recorded Social History Description Last Updated Smoking status : Current everyday smoker 03/10/2021 Last Documented On 9:04PM ; [facility] No consumption of alcohol but has a hist ory 03/10/2021 Last Documented On 9:04PM ; [facility] Not using drugs but has a history 2020 Last Documented On 9:04PM ; [facility] Current smoker 03/10/2021 Last Documented On 9:04PM ; [facility] Cigarette smoking 1 pack(s)/day 15 year s 03/10/2021 Last Documented On 1 9:04PM ; [facility] Exercise frequency Some 03/10/2021 Last Documented On 1 9:04PM ; [facility] Single 03/10/2021 Last Documented On 1 9:04PM ; [facility] Tobacco use 03/10/2021 Last Documented On 9:04PM ; [facility] Social history unchanged 03/10/2021 Last Documented On 9:04PM ; [facility] Procedures and Surgical History Surgical History Last Updated History of tubal ligation May 2017 0 03/10/2021 Last Documented On 9:04PM ; [facility] Medical History Includes: Medical History in patient's chart Description Last Updated Born by section March 2016 Last Documented On 1 9:04PM ; [facility] No diagnosis of history of arthritis Last Documented On 1 9:04PM ; [facility] No diagnosis of history of cancer 2020 Last Documented On 1 9:04PM ; [facility] No diagnosis of history of chronic obstr uctive pulmonary disease 03/10/2021 Last Documented On 1 9:04PM ; [facility] No diagnosis of history of convulsive di sorder 03/10/2021 Last Documented On 1 9:04PM ; [facility] No diagnosis of history of diabetes edna itus 03/10/2021 Last Documented On 1 9:04PM ; [facility] No diagnosis of history of hypertension 03/10/2021 Last Documented On 1 9:04PM ; [facility] No diagnosis of history of sexually can smitted disease 03/10/2021 Last Documented On 1 9:04PM ; [facility] No diagnosis of history of stroke syndro me 03/10/2021 Last Documented On 1 9:04PM ; [facility] No reported cardiovascular symptoms 02/11 Last Documented On 1 9:04PM ; [facility] No reported easy bleeding 03/10/2021 Last Documented On 1 9:04PM ; [facility] No reported recurrent infections 021 Last Documented On 1 9:04PM ; [facility] Has had no fall in the last 12 months. 0 03/10/2021 Last Documented On 1 9:04PM ; [facility] Family History Includes: Family History in patient's chart Description Last Updated Family history of alcoholism 03/10/2021 Last Documented On 1 9:04PM ; [facility] Family history of diabetes mellitus 02/11 Last Documented On 1 9:04PM ; [facility] Family history of heart disease 03/10/20 21 Last Documented On 1 9:04PM ; [facility] Family history of mental illness (not in tellectual disabilities) 03/10/2021 Last Documented On 1 9:04PM ; [facility] Father 52 years old 03/10/2021 Last Documented On 1 9:04PM ; [facility] Maternal grandfather is not Last Documented On 1 9:04PM ; [facility] Maternal grandmother is 021 Last Documented On 1 9:04PM ; [facility] Mother 50 years old 03/10/2021 Last Documented On 9:04PM ; [facility] No family history of defects 03/10 Last Documented On 1 9:04PM ; [facility] No family history of bleeding problems 0 03/10/2021 Last Documented On 1 9:04PM ; [facility] No family history of cancer 03/10/2021 Last Documented On 1 9:04PM ; [facility] No family history of genetic disease Last Documented On 1 9:04PM ; [facility] No family history of kidney disease 02/11 Last Documented On 1 9:04PM ; [facility] Paternal grandfather is 021 Last Documented On 1 9:04PM ; [facility] Paternal grandmother is not Last Documented On 1 9:04PM ; [facility] Family history unchanged 03/10/2021 Last Documented On 1 9:04PM ; [facility] Review of Systems Review of Systems not supported for this document type No Review of Systems Recorded Mental Status No Mental Status Recorded Functional Status No Functional Status Recorded Physical Exam Physical Exam not supported for this document type No Physical Exam Recorded Allergies Includes: Active, inactive, and resolved Allergies No Known Allergies Insurance Includes: Active Insurance Policies Plan Name Member ID Group # Subscriber Relationship Effect patience Dates 1 - [facility] [id number] CADEN QURESHI Self Clinical Notes Includes: Signed Clinical Notes starting from 08/31/2022 No Clinical Notes Recorded
--- OUTSIDE RECORDS SUMMARY | 2024-11-18 09:30 | XMS_ITS | Clinical Summary ---
Author Organization [facility] Address [address] [place] [address] Phone Care Team Providers Care Emergency Management Consultant Name Role Phone Kim Mederos PAC Primary Care Pro vider Aleida Garrido WOOD HEEL FLAP RUBBER, IMAGING SCHEDULER Unavailable [phone] Allergies Active Allergy Reactions Criticality Noted Date Comments Ibuprofen Hives,Shortness of Breath,Unknown Low 08/13/2015 Tramadol Other (see Comments) 05/11/2022 Causes hallucinations Acetaminophen-Codei ne Rash,Other (see Comments) High 12/09/2019 throat feels tight Medications amphetamine-de xtroamphetamin e (ADDERALL XR) 10 MG CAPSULE SR 24 HR dextroamphetamine -amphetamine ER 10 mg 24hr capsule,extend release Active gabapentin (NEURONTIN) 300 MG Capsule Take 300 mg by mouth 3 times daily. 2 Active venlafaxine (EFFEXOR-XR) 150 MG CAPSULE SR 24 HR 3 Active pilocarpine (SALAGEN) 5 MG Tablet 4 Active Naltrexone (VIVITROL IM) by Intramuscular route. Active venlafaxine (EFFEXOR-XR) 75 MG CAPSULE SR 24 HR Take 75 mg by mouth. 2 Active Active Problems Problem Noted Date Diagnosed Date H/O tubal ligation 12/18/2023 Suicide risk 02/01/2022 Overview (02/01/2022): Touchette in patient Jan 2022 Alcohol abuse 10/06/2021 Bipolar 1 disorder 10/06/2021 Depression 10/06/2021 Anxiety 10/06/2021 Immunizations Immunization Administration Dates Next Due DTAP VACCINE 12/25/1996 DTP Vaccine 12/26/1993, 3,04/26/1993,1991 Hepatitis B Vaccine, Pediatric/adolescent 10/03/1998,03/23/1998,12/25/1996 Influenza Vaccine 05/12/2014 Influenza, Injectable, Quadrivalent 07/14/2018,0 05/06/2017 MMR Vaccine 12/25/1996,04/26/1993 OPV 12/25/1996, 4,04/26/1993,1991 TDAP Vaccine 08/12/2014,05/12/2014 Family History Medical History Relation Name Comments Alcohol Abuse Father Heart Attack Father High Cholesterol Father Hypertension Father Hypertension Maternal Grandfather Hypertension Maternal Grandmother Labor Mother Seizures Mother Heart Disease Paternal Grandfather Hypertension Paternal Grandfather Stroke Paternal Grandfather Diabetes Paternal Grandmother Hypertension Paternal Grandmother Hypertension Sister Relation Name Status Comments Father Alive Maternal Grandfather Maternal Grandmother Mother Alive Paternal Grandfather Paternal Grandmother Sister Social History Tobacco Use Types Packs/Day Years Used Date Smoking Tobacco: Every Day Cigarettes 1 10 Smokeless Tobacco: Never Tobacco Cessation:Ready to Q uit: Not Asked; Counseling Given: Not Answered Comments:was on the patch to quit before getting Alcohol Use Standard Drinks/Week Comments No 0 (1 standard drink = 0.6 oz pur e alcohol) [facility] [employer] Answer Date Recorded In the past 12 months has [employer], [employer], oil, or water [employer] threatened to shut off services in your home? No 12/18/2023 Social Connection and Isolat ion Panel [NHANES] Answer Date Recorded In a typical week, how many times do you talk on the phone with family, friends, or neighbors? More than three times a week 12/18/2023 How often do you get togethe r with friends or relatives? Once a week 12/18/2023 How often do you attend chur or pentecostal services? Never 12/18/2023 Do you belong to any clubs o r organizations such as methodist groups, unions, fraternal or athletic groups, or school groups? Yes 12/18/2023 How often do you attend meet ings of the clubs or organizations you belong to? More than 4 times per year 12/18/2023 Are you , , di vorced, , never , or living with a partner? Never 12/18/2023 AUDIT-C Answer Date Recorded Q1: How often do you have a drink containing alcohol? Never 12/18/2023 Q2: How many drinks containi ng alcohol do you have on a typical day when you are drinking? Patient does not drink Q3: How often do you have si x or more drinks on one occasion? Never 12/18/2023 Overall Financial Resource Strain (CARDIA) Answe r Date Recorded How hard is it for you to pa y for the very basics like food, housing, medical care, and heating? Somewhat hard 12/18/2023 PHQ-2 Answer Date Recorded Total Score - Questions 1-9 17 09/13 [facility] - Occupational Stress Questionnaire Answer Date Recorded Do you feel stress - tense, restless, nervous, or anxious, or unable to sleep at night because your mind is troubled all the time - these days? Only a little 12/18/2023 Exercise Vital Sign Answer Date Recorde d On average, how many days pe r week do you engage in moderate to strenuous exercise (like a brisk walk)? 4 days 12/18/2023 On average, how many minutes do you engage in exercise at this level? 40 min 12/18/2023 Hunger Vital Sign Answer Date Recorded Within the past 12 months, y ou worried that your food would run out before you got the money to buy more. Sometimes true Within the past 12 months, t he food you bought just didn't last and you didn't have money to get more. Never true 03/2024 PRAPARE - Transportation Answer Date Re corded In the past 12 months, has l ack of transportation kept you from medical appointments or from getting medications? No 03/2024 In the past 12 months, has l ack of transportation kept you from meetings, work, or from getting things needed for daily living? No 12/18/2023 Housing Stability Vital Sign Answer Sundar e Recorded In the last 12 months, was t here a time when you were not able to pay the mortgage or rent on time? No 12/18/2023 In the last 12 months, how many places have you lived? 1 12/18/2023 In the last 12 months, was t here a time when you did not have a steady place to sleep or slept in a alf (including now)? No 12/18/2023 Sexually Active Control Partners Comments Never Abstinence Male Comments No Sex and Gender Information Value Date Recorded Sex Assigned at Not on file Legal Sex Female 9:48 PM CDT Gender Identity Not on file Sexual Orientation Not on file Last Filed Vital Signs Vital Sign Reading Time Taken Comments Blood Pressure 127/74 07/07/2024 1:00 PM BREAST WORKER Pulse 76 07/07/2024 1:00 PM BREAST WORKER Temperature 36.6 C (97.9 F) 07/07/2024 8:41 AM BREAST WORKER Respiratory Rate 18 07/07/2024 1:00 PM BREAST WORKER Oxygen Saturation 95% 07/07/2024 1:00 PM BREAST WORKER Inhaled Oxygen Concentration - - Weight 86.2 kg (190 lb) 07/07/2024 8:41 AM BREAST WORKER Height 154.9 cm (5' 1 ) 07/07/2024 8:41 AM BREAST WORKER Body Mass Index 35.9 07/07/2024 8:41 AM BREAST WORKER Plan of Treatment Upcoming Encounters Date Type Department Care Team (Late st Contact Info) Description 11/19/2024 2:00 PM CDT Office Visit [facility] - Primary [facility] [address] [address] Provider, [facility] Health Maintenance Due Date Last Done Comments Hepatitis C Virus (HCV) Screening 1991 Pneumococcal Immunization Combined (1 of 2 - PCV) 2010 Pap Smear 2012 Cervical Cancer Screening (CCS) 2021 HPV/Cotest 2021 SARS-COV-2 Immunization ( - season) 2024 09/26/2021, 04/13/2021, 11/25/2020 DTaP/Tdap/Td Immunization (8 - Td or Tdap) 08/12/2024 08/12/2014, 05/12/2014, 12/25/1996, Additional history exists Influenza Immunization (Season Ended) 2025 07/14/2018, 05/06/2017, 05/12/2014 Respiratory Syncytial Virus (RSV) Immunization (Adult) (1 - 1-dose 75+ series) 2066 Hepatitis B Immunization Completed 999, 03/23/1998, 12/25/1996 Meningococcal Immunization (ACWY) Aged Out No longer eligible based on patient's age to complete this topic Rotavirus Immunization Aged Out No lo nger eligible based on patient's age to complete this topic Insurance MEDICAID [place] MEDICAID [facility] MED[place] Advance Directives * Full Code (Latest Code Status on File) Date Activated Date Inactivated Comments 04/06/2017 7:53 AM 04/06/2017 3:36 PM CPR-Full Aaron atment: FULL ARREST: Attempt Resuscitation/CPR wit intubation and mechanical ventilation. PRE-ARREST: Use entire range of life support measures to stabilize the patient. * Full Code Date Activated Date Inactivated Comments 04/04/2017 8:09 PM 04/05/2017 1:33 AM CPR-Full Aaron atment: FULL ARREST: Attempt Resuscitation/CPR wit intubation and mechanical ventilation. PRE-ARREST: Use entire range of life support measures to stabilize the patient. * Full Code Date Activated Date Inactivated Comments 03/27/2017 12:49 PM 03/27/2017 4:49 PM CPR-Full Tr eatment: FULL ARREST: Attempt Resuscitation/CPR wit intubation and mechanical ventilation. PRE-ARREST: Use entire range of life support measures to stabilize the patient. * Full Code Date Activated Date Inactivated Comments 03/08/2017 8:26 PM 03/09/2017 1:23 AM CPR-Full Aaron atment: FULL ARREST: Attempt Resuscitation/CPR wit intubation and mechanical ventilation. PRE-ARREST: Use entire range of life support measures to stabilize the patient. Care Teams Emergency Management Consultant Relationship Specialty Start Date End Date Kim Mederos, CHEMO [address] [place] [address] PCP - General Physician Mud Analysis Supervisor 10/06/21 Aleida Garrido, WOOD HEEL FLAP RUBBER, IMAGING SCHEDULER [address] [facility], [address] [place] [address] Nurse Practitioner Cardiology 02/18/24
--- OUTSIDE RECORDS SUMMARY | 2024-11-18 09:30 | XMS_ITS | Clinical Summary ---
Author Organization [facility] Address [address] [place] [address] Phone Care Team Providers Care Director Validation Name Role Phone TESSA GATES Primary Care Provider [phone] DUSTY CUETO, DERIK Unavailable [phone] Reason for Visit and Chief Complaint CHECK UP Plan of Treatment No Plan of Treatment [...] On 1 4:37PM By Tessa MCKEON ; [facility] Pantoprazole Sodium 20 MG Oral Tablet Delayed Release 03/10/2021 Provider: TESSA MCKEON Diagnosis: Gastro-esophagea l reflux dis with esophagitis, without bleed One tablet daily Last Documented On 1 4:37PM By Tessa MCKEON ; [facility] Medications Administered Includes: Administered Medications [...] Allergies Includes: Active Allergies No Known Allergies Insurance Includes: Active Insurance Policies Plan Name Member ID Group # Subscriber Relationship Effect patience Dates 1 - [facility] [id number] CADEN QURESHI Self Clinical Notes Includes: Clinical Notes from this encounter No Clinical Notes Recorded
--- OUTSIDE RECORDS SUMMARY | 2024-11-18 09:30 | XMS_ITS | Clinical Summary ---
Author Organization [facility] Address [address] [place] [address] Phone Care Team Providers Care Pharmacy Consultant Name Role Phone Raúl Faust MD Primary Care Provider [phone] Social History Tobacco Use Types Packs/Day Years Used Date Smoking Tobacco: Never Assessed Comments Unknown Sex and Gender Information Value Date Recorded Sex Assigned at Not on file Legal Sex Female 8:52 AM CDT Gender Identity Not on file Sexual Orientation Not on file Plan of Treatment Health Maintenance Due Date Last Done Comments DTAP/TDAP/TD VACCINES (1 - Tdap) 2010 HEPATITIS B VACCINES (1 of 3 - 19+ 3-dose series) 2010 HPV/Cotest (21-29) 2012 CERVICAL CANCER SCREENING 2021 HPV/Cotest (30-65) 2021 PAP SMEAR 2021 INFLUENZA VACCINE (#1) 2024 HPV VACCINES Aged Out No longer eligi ble based on patient's age to complete this topic Insurance [place]ICAID [place] Care Teams Pharmacy Consultant Relationship Specialty Start Date End Date Raúl Faust MD PCP - General Family Practice 01/06/14
--- OUTSIDE RECORDS SUMMARY | 2024-11-18 09:30 | XMS_ITS | Clinical Summary ---
Author Organization [facility] [address] Address [address] [place] [address] Phone Care Team Providers Care Gas Plant Operator Name Role Phone Dimple Maciel MD Unavailable [phone] Kim Mederos Primary Care Prov ider Tien Hastings MD Unavailable [phone] Allergies Active Allergy Reactions Criticality Noted Date Comments Albuterol Cough,Vomiting Medium Ibuprofen Hives,Rash,Shortness of breath,Unknown High 08/13/2015 Tramadol Hives,Hallucinations Medium 02/28/2024 Acetaminophen-Codeine Hives,Shortness of breath High 03/05/2018 Medications levalbuterol (XOPENEX HFA) 45 mcg/actuation inhaler Inhale 2 puffs every 4 (four) hours as needed for wheezing or shortness of breath. 1 Inhaler 8 Active venlafaxine XR (EFFEXOR-XR) 75 mg 24 hr capsule Take 1 capsule (75 mg total) by mouth daily 2 Active venlafaxine XR (EFFEXOR-XR) 150 mg 24 hr capsule Take 1 capsule (150 mg total) by mouth daily 4 Active dextroamphetami ne-amphetamine XR (ADDERALL XR) 30 mg 24 hr capsule Take 1 capsule (30 mg total) by mouth every morning Active gabapentin (NEURONTIN) 300 mg capsule Take 1 capsule (300 mg total) by mouth 2 (two) times a day Active ibuprofen (ADVIL,MOTRIN) 600 mg tablet Take 1 tablet (600 mg total) by mouth every 6 (six) hours as needed for pain (pain) 12 tablet 1 4 Active Active Problems Problem Noted Date Diagnosed Date 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 01/22/2024 Attention deficit disorder (ADD) without hyperac tivity 12/26/2013 Overview (11/16/2016): Attention deficit disorder Resolved Problems Problem Noted Date Diagnosed Date Resolved Date Admission for sterilization 10/09/2017 10/23/2017 Vaginal discharge 06/23/2014 01/24/2017 Overview (11/16/2016): Vaginal discharge Surgical History Surgery Date Site/Laterality Comments DIAGNOSTIC LAPAROSCOPY 08/12/2015 - 08/11/2016 pelvic pain, with no abnormal findings SECTION, LOW TRANSVERSE 08/12/2016 - 08/11/2017 placenta previa LAPAROSCOPIC TUBAL LIGATION 08/12/2017 - 08/11/2018 by bilateral salpingectomy TUBAL LIGATION Medical History Medical History Date Comments Seasonal allergies Anxiety and depression Cystic fibrosis carrier Abnormal Pap smear of cervix 2011 [facility] [place], ? more advanced lesion on pap 02/19/12 ADD (attention deficit disorder) Abnormal Pap smear of cervix 2016 [facility] US, HPV (+) Anemia Bilateral ovarian cysts Family History Medical History Relation Name Comments Heart attack Father Hyperlipidemia Father Hypertension Father Stroke Father Hypertension Father's Sister Diabetes Paternal Grandfather Hyperlipidemia Paternal Grandfather Hypertension Paternal Grandfather Stroke Paternal Grandfather COD at age 62 Diabetes Paternal Grandmother Hypertension Paternal Grandmother Hypertension Sister Relation Name Status Comments Father Father's Sister Paternal Grandfather Paternal Grandmother Sister Social History Tobacco Use Types Packs/Day Years Used Date Smoking Tobacco: Heavy Smoker Cigarettes 0.5 11 Smokeless Tobacco: Never Tobacco Cessation:Ready to Q uit: No; Counseling Given: Yes Comments:Smoking History Packs/day: 0.5 Packs Alcohol Use Standard Drinks/Week Comments Yes 0 (1 standard drink = 0.6 oz pur e alcohol) every two months AUDIT-C Answer Date Recorded Q1: How often do you have a drink containing alcohol? Never 02/19/2024 Q2: How many drinks containi ng alcohol do you have on a typical day when you are drinking? Patient does not drink Q3: How often do you have si x or more drinks on one occasion? Never 02/19/2024 Personal Safety Answer Date Recorded Have you ever been in or are you currently in a harmful physical or emotional relationship or is someone making you feel afraid or unsafe? Denies 06/04/2024 Comments No Sex and Gender Information Value Date Recorded Sex Assigned at Not on file Legal Sex Female 9:17 PM SOLAR SALES SPECIALIST Gender Identity Not on file Sexual Orientation Not on file Occupation Industry Job Start Date Job End Date [employer] Not on file Not on file Not on file Obstetrics History Para Term AB IAB SAB Ectopic Multiple Livin g Live Births 3 3 2 1 0 0 0 0 0 3 3 Date Outcome GA Total Labor Labor/2nd/3rd Weight Sex Type Anes PTL Marissa A1 A5 Name Clin 013 Term 39w 0d 3.005 kg (6 lb 10 oz) M Vag-S pont Epidur al N Livin g Complications:None 014 Term 37w 6d 3.062 kg (6 lb 12 oz) F Vag-S pont Epidur al N Livin g 017 32w 1d 1.758 kg (3 lb 14 oz) F CS-LT ranv Genera l Y Livin g Complications:Placenta Previ a Comments Difficult manual removal of the placenta in second delivery. Transferred to Trainer for placenta previa with hemorrhage, requiring LTCS emergently at 32w 1d. Last Filed Vital Signs Vital Sign Reading Time Taken Comments Blood Pressure 127/70 06/04/2024 7:12 PM CDT Pulse 115 06/04/2024 7:12 PM CDT Temperature 36.9 C (98.5 F) 06/04/2024 7:12 PM CDT Respiratory Rate 18 06/04/2024 7:12 PM CDT Oxygen Saturation 97% 06/04/2024 7:12 PM CDT Inhaled Oxygen Concentration - - Weight 75.5 kg (166 lb 7.2 oz) 06/04/2024 7:12 P M CDT Height 154.9 cm (5' 0.98 ) 06/04/2024 7:12 PM CD T Body Mass Index 31.47 06/04/2024 7:12 PM CDT Plan of Treatment Health Maintenance Due Date Last Done Comments Depression Screening 1991 Varicella Vaccines (1 of 2 - 13+ 2-dose series) 2004 Pneumococcal vaccine <65 (1 of 2 - PCV) 2010 Cervical Cancer Screening 10/23/20182017, 10/10/2016, 10/10/2016, Additional history exists Regular Well Visit/Exam 18-64 10/23/2018 10/23/2017 Covid-19 Vaccine ( season) 2024 04/13/2021, 11/25/2020 Influenza Vaccine (#1) 2024 8, 05/06/2017, 05/12/2014 DTaP/Tdap/Td Vaccine (8 - Td or Tdap) 08/12/2024 08/12/2014, 05/12/2014, 12/25/1996, Additional history exists Hepatitis B Screening Completed 10/03/1998 , 03/23/1998, 12/25/1996 Hepatitis C Screening Completed 10/10/2016, 014 HPV Vaccines Aged Out No longer eligi ble based on patient's age to complete this topic Procedures Procedure Name Priority Date/Time Associated Diagnosis Comments THINPREP IMAGING PAP REFLEX HPV MRNA E6/E7 Routine 10/23/2017 2:41 PM CDT HEP C AB W/RFL HCV Routine 10/10/2016 9: 44 AM SOLAR SALES SPECIALIST from Last 3 Months or Most Recently Relevant to Health Maintenance Results * ThinPrep Imaging Pap Reflex HPV mRNA E6/E7 (10/23/2017 2:41 PM CDT) Report status [facility]CELED [facility] Comment:Result canceled by t he ancillary CLINICAL INFORMATION: [facility] Comment:Routine exam LMP 10/20/2017 [facility] Previous Pap [facility] Comment:INFORMATION NOT PROV IDED Prev. Bx [facility] Comment:INFORMATION NOT PROV IDED SOURCE: [facility] Comment:Cervix, Endocervix Pap, specimen adequacy [facility] Comment: Satisfactory for evaluation. Endocervical/transformation zone component present. Pap, general categorization CANCELED [facility] - Comment:Result canceled by t he ancillary HPV interp [facility] - Comment:Negative for intraep ithelial lesion or malignancy. Infection: CANCELED [facility] - Comment:Result canceled by t apryl ancillary COMMENTS [facility] - Comment: This Pap test has been evaluated with computer assisted technology. Residential Sales Executive [facility] - Comment: ABC, CT(ASCP) CT screening location: [place] [address] Administration NATALY Mueller [address] Review hadoop engineer [facility] - Comment: MDG, CT(ASCP) CT screening location: [place] [address] Administration NATALY Mueller [address] Pathologist CANCELED [facility] - Comment:Result canceled by t apryl ancillary Comment [facility] - Comment: EXPLANATORY NOTE: The Pap is a screening test for cervical cancer. It is not a diagnostic test and is subject to false negative and false positive results. It is most reliable when a satisfactory sample, regularly obtained, is submitted with relevant clinical findings and history, and when the Pap result is evaluated along with historic and current clinical information. 10/23/2017 2:41 PM CDT 10/24/2017 10:06 AM CDT Narrative Resulting Agency Comment Performing Organization Information: Site ID: Name: [facility] Address: [facility] [place] [address] Director: Gem Marks MD Dimple Maciel MD LAB PATHOLOGY ORDER ARAM Final Result [facility] - [place], [place] * HEP C AB W/RFL HCV (10/10/2016 9:44 AM SOLAR SALES SPECIALIST) SIGNAL TO CUT-OFF 0.02 <1.00 [facility] Comment: Test performed at [facility] [place] [address] [facility] [place] [address] Director: ZEKE RICHARDSON DO,MPH Hep C Ab NON-REACT KIT NON-REACT KIT [facility] 10/10/2016 9:44 AM SOLAR SALES SPECIALIST Dimple Maciel MD LAB MICROBIOLOGY - GENERAL ORDERABLES Final Result [facility] from Last 3 Months or Most Recently Relevant to Health Maintenance Insurance [facility] Care Teams Gas Plant Operator Relationship Specialty Start Date End Date Kim Mederos PA [address] [place] [address] PCP - General Neurosurgery 08/07/23 Dimple Maciel MD [address] [place] [address] Obstetrics and Gynecology 05/16/17 Tien Hastings MD [address] [facility] [facility] [address] [place] [address] Consulting Physician Obstetrics and Gynecology 02/28/24
--- OUTSIDE RECORDS SUMMARY | 2024-11-18 09:30 | XMS_ITS | Referral Summary ---
Author Organization [facility] [address] Address [address] [place] [address] Phone Care Team Providers Care Security Representative Name Role Phone Dimple Maciel MD Unavailable [phone] Kim Mederos Primary Care Prov ider Tien Hastings MD Unavailable Allergies Active Allergy Reactions Criticality Noted Date [...] discharge 06/23/2014 01/24/2017 Overview (11/16/2016): Vaginal discharge Social History Tobacco Use Types Packs/Day Years [...] on file Legal Sex Female 9:17 PM CYBER SYSTEMS OPERATIONS SPECIALIST Gender Identity Not on file Sexual Orientation Not on file Occupation Industry Job Start Date Job End Date [employer] Not on file Not on file Not on file Last Filed Vital Signs [...] 06/04/2024 7:12 PM CDT Plan of Treatment Not on file Procedures Procedure Name Priority Date/Time Associated Diagnosis Comments THINPREP IMAGING PAP REFLEX HPV MRNA E6/E7 Routine 10/23/2017 2:41 PM CDT HEP C AB W/RFL HCV Routine 10/10/2016 9: 44 AM CYBER SYSTEMS OPERATIONS SPECIALIST from Last 3 Months or Most Recently Relevant to Health Maintenance Results * ThinPrep Imaging Pap Reflex HPV mRNA E6/E7 (10/23/2017 2:41 PM CDT) Report status [facility] - Comment:Result canceled by bennett pink ancillary CLINICAL INFORMATION: [facility] - Comment:Routine exam LMP 10/20/2017 [facility] - Previous Pap [facility] - Comment:INFORMATION NOT PROV IDED Prev. Bx [facility] - [place] Comment:INFORMATION NOT PROV IDED SOURCE: [facility] - Comment:Cervix, Endocervix Pap, specimen adequacy [facility] - Comment: Satisfactory for evaluation. Endocervical/transformation zone component present. Pap, general categorization [facility]CELED [facility] Comment:Result canceled by bennett pink ancillary HPV interp [facility] - Comment:Negative for intraep ithelial lesion or malignancy. Infection: CANCELED [facility] - [facility] Comment:Result canceled by bennett pink ancillary COMMENTS [facility] - Comment: This Pap test has been evaluated with computer assisted technology. Hand Deicer [facility] - Comment: ABC, CT(ASCP) CT screening location: [place] [address] [place] [address] Review boarding house manager [facility] - Comment: MDG, CT(ASCP) CT screening location: [facility] [address] [address] Pathologist CANCELED [facility] Comment:Result canceled by t he ancillary Comment [facility] - Comment: EXPLANATORY NOTE: The [...] Comment Performing Organization Information: Site ID: Name: [facility] Address: [address] [place] [address] Director: Gem Marks MD Dimple Maciel MD LAB PATHOLOGY ORDER ARAM Final Result Performing Organization Address City/[facility]/ZIP Co de Phone Number [facility] - [place], [place] * HEP C AB W/RFL HCV (10/10/2016 9:44 AM CYBER SYSTEMS OPERATIONS SPECIALIST) SIGNAL TO CUT-OFF 0.02 <1.00 [facility] Comment: Test performed at [facility] [place] [address] [place] [address] Director: ZEKE RICAHRDSON DO,MPH Hep C Ab NON-REACT KIT NON-REACT KIT [facility] 10/10/2016 9:44 AM CYBER SYSTEMS OPERATIONS SPECIALIST Dimple Maciel MD LAB MICROBIOLOGY - GENERAL ORDERABLES Final Result [facility] RESULTS from Last 3 Months or Most Recently Relevant to Health Maintenance Insurance IDPA [facility] Care Teams Security Representative Relationship Specialty Start Date End Date Kim Mederos PA [address] [place] [address] PCP - General Neurosurgery 08/07/23 Dimple Maciel MD [address] [place] [address] Obstetrics and Gynecology 05/16/17 Tien Hastings MD [address] [place] [address] [address] [place] [address] Consulting Physician Obstetrics and Gynecology 02/28/24
--- OUTSIDE RECORDS SUMMARY | 2024-11-18 09:30 | XMS_ITS | Clinical Summary ---
Author Organization [facility] Address [address] [place] [address] Phone Care Team Providers Care Service Line Layer Name Role Phone TESSA GATES Primary Care Provider [phone] DSUTY CUETO, DERIK Unavailable [phone] Reason for Visit and Chief Complaint Visit for: initial medical exam new patient and needing to be established with a primary care provider - The Chief Complaint is: Patient is here for a New Patient Visit to get established, says last time she had labs done her BS was high, says she has been having stomach issues, Plan of Treatment Start on Protonix 20mg daily for GERD. Start venlafaxine 37.5 mg daily for anxiety and depression. [facility]. Lab orders sent, to be drawn this weekend at [facility] Follow up in the office in 1 month or otherwise as needed. - Last Documented On 03/10/2021 9:04PM ; [facility] Instructions to patient Intervention and counseling on cessation of tobacco use Last Documented On 3:33PM ; [facility] Lose weight Last Documented On 3:33PM ; [facility] Assessments Includes: Assessments from this encounter Findings - [R10.9 - Unspecified abdominal pain] Abdominal pain - Last Documented On 03/10/2021 9:04PM ; [facility] - [R53.83 - Other fatigue] Fatigue - Last Documented On 03/10/2021 9:04PM ; [facility] Instructions Includes: Instructions from this encounter Instructions to patient Intervention and counseling on cessation of tobacco use Last Documented On 1 3:33PM ; [facility] Lose weight Last Documented On 1 3:33PM ; [facility] Medical Equipment - Implanted Devices Includes: Current Devices No Medical Equipment Recorded Medications Includes: Medications discussed during this encounter and other current Medications New / Renewed during this visit TESSA MIDDLETON-Rodrigo on 03/10/2021 Venlafaxine HCl ER 37.5 MG Oral Capsule Extended Release 24 Hour Provider: TESSA MIDDLETON-Rodrigo 30 day supply: 30 capsule, 1 refills Diagnosis: Adjustment disorder with depressed mood 1 capsule daily Pharmacy: [address] ([place], [id number] - Last Documented On 1 4:37PM By Tessa MCKEON ; [facility] Pantoprazole Sodium 20 MG Oral Tablet Delayed Release Provider: TESSA MCKEON 30 day supply: 30 tablet, 3 refills Diagnosis: Gastro-esophageal reflux dis with esophagitis, without bleed One tablet daily Pharmacy: [address] ([place] , [facility], [id number] - Last Documented On 1 4:37PM By Tessa MCKEON ; [facility] Medications Administered Includes: Administered Medications from this encounter No Administered Medications Recorded Vital Signs Includes: Vital Signs from this encounter Vital Name 03/10/2021 03:33P Blood Pressure Sitting L 118/84 BP Cuff Size Regular Pulse Rate-Sitting (bpm) 64 Respiration Rate (breaths/min) 18 Height (in) 61.5 Weight (lb) 153 Body Mass Index (kg/m2) 28.4 Body Surface Area (m2) 1.7 Last Documented: On 03/10/2021 3:35PM ; [facility] Results Includes: Results discussed during this encounter No Results Recorded For Specified Dates History of Present Illness Includes: History of Present Illness from this encounter ELIGIO CADEN QURESHI is a 30 year old female. - Allergy list reviewed - Allergy list reviewed - Problem list reviewed - Medication reconciliation performed - Medication reconciliation performed - Medication list reviewed - Fatigue - Abdominal pain Here today for new patient visit to become established. She states while she was being treated for depression and addiction she was told her blood glucose was elevated. Today in office her blood glucose was 101. She reports during her last in 2017 she was hyperglycemic. She reports a family Hx of diabetes. 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 She also reports a 15lb weight gain with increasing fatigue. She was recently admitted to [facility] for 1 week for mental health needs and addiction 4 weeks ago. Because it was a [facility] facility no pharmacy would fill her scripts upon discharge-she was on sertraline but stated it really never worked for her depression/anxiety and would like to try something else. Caden is a single mother with 3 kids- 1 boy age 8 and 2 girls age 6 and 3. 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 She lives in [place]. She likes to take her kids to the park for fun. Social History Description Last Updated Smoking status : Current everyday smoker 03/10/2021 Last Documented On 1 9:04PM ; [facility] No consumption of alcohol but has a hist ory 03/10/2021 Last Documented On 1 9:04PM ; [facility] Not using drugs but has a history 2020 Last Documented On 1 9:04PM ; [facility] Current smoker 03/10/2021 Last Documented On 1 9:04PM ; [facility] Cigarette smoking 1 pack(s)/day 15 years 03/10/2021 Last Documented On 1 9:04PM ; [facility] Exercise frequency Some 03/10/2021 Last Documented On 1 9:04PM ; [facility] Single 03/10/2021 Last Documented On 1 9:04PM ; [facility] Tobacco use 03/10/2021 Last Documented On 1 9:04PM ; [facility] Social history unchanged 03/10/2021 Last Documented On 9:04PM ; [facility] Procedures and Surgical History Includes: Procedures from this encounter Procedures Code Diagnosis Performing Provider Service L ocation Service Date intervention and counseling on cessation of tobacco use 4000F Last Documented On 1 3:33PM ; [facility] use of tobacco assessment performed 1000F Last Documented On 1 3:33PM ; [facility] patient screened for future fall risk 3288F Last Documented On 3:33PM ; [facility] standardized depression screening: negative for symptoms 3351F Last Documented On 3:33PM ; [facility] review of medications documented 1160F Last Documented On 1 3:33PM ; [facility] assessment of suicide risk performed Last Documented On 3:33PM ; [facility] screening for adult depression: impressi on and score twelve Last Documented On 1 3:42PM ; [facility] Clinical summary provided to patient Last Documented On 3:33PM ; [facility] PHQ-9: total score 12 Last Documented On 9:03PM ; [facility] Surgical History Last Updated History of tubal ligation May 2017 0 03/10/2021 Last Documented On 1 9:04PM ; [facility] Medical History Includes: Medical History addressed during this encounter Description Last Updated Born by section March 2017 Last Documented On 1 9:04PM ; [facility] No diagnosis of history of arthritis Last Documented On 1 9:04PM ; [facility] No diagnosis of history of cancer 2020 Last Documented On 9:04PM ; [facility] No diagnosis of history of chronic obstr uctive pulmonary disease 03/10/2021 Last Documented On 1 9:04PM ; [facility] No diagnosis of history of convulsive di sorder 03/10/2021 Last Documented On 9:04PM ; [facility] No diagnosis of history of diabetes edna itus 03/10/2021 Last Documented On 1 9:04PM ; [facility] No diagnosis of history of hypertension 03/10/2021 Last Documented On 1 9:04PM ; [facility] No diagnosis of history of sexually can smitted disease 03/10/2021 Last Documented On 1 9:04PM ; [facility] No diagnosis of history of stroke syndro me 03/10/2021 Last Documented On 1 9:04PM ; [facility] No reported cardiovascular symptoms 02/11 Last Documented On 1 9:04PM ; [facility] No reported easy bleeding 03/10/2021 Last Documented On 1 9:04PM ; [facility] No reported recurrent infections Last Documented On 1 9:04PM ; [facility] Has had no fall in the last 12 months. 0 03/10/2021 Last Documented On 1 9:04PM ; [facility] Family History Includes: Family History addressed during this encounter Description Last Updated Family history of alcoholism 03/10/2021 Last Documented On 1 9:04PM ; [facility] Family history of diabetes mellitus 02/11 Last Documented On 1 9:04PM ; [facility] Family history of heart disease 03/10/20 21 Last Documented On 1 9:04PM ; [facility] Family history of mental illness (not in tellectual disabilities) 03/10/2021 Last Documented On 1 9:04PM ; [facility] Father 52 years old 03/10/2021 Last Documented On 1 9:04PM ; [facility] Maternal grandfather is not Last Documented On 1 9:04PM ; [facility] Maternal grandmother is 021 Last Documented On 1 9:04PM ; [facility] Mother 50 years old 03/10/2021 Last Documented On 1 9:04PM ; [facility] No family history of defects 03/10 Last Documented On 1 9:04PM ; [facility] No family history of bleeding problems 0 03/10/2021 Last Documented On 1 9:04PM ; [facility] No family history of cancer 03/10/2021 Last Documented On 1 9:04PM ; [facility] No family history of genetic disease Last Documented On 1 9:04PM ; [facility] No family history of kidney disease 02/11 Last Documented On 1 9:04PM ; [facility] Paternal grandfather is Last Documented On 1 9:04PM ; [facility] Paternal grandmother is not Last Documented On 1 9:04PM ; [facility] Family history unchanged 03/10/2021 Last Documented On 1 9:04PM ; [facility] Review of Systems Includes: Review of Systems from this encounter Systemic: No systemic symptoms. General overall feeling. Feeling fine and not feeling poorly (malaise). Fatigue. No fever, no chills, and no night sweats. Recent weight change. No pain. Head: No head symptoms, no headache, no facial pain, and no sinus pain. Neck: No neck symptoms, no neck pain, no neck stiffness, and no lump or swelling in the neck. Eyes: No eye symptoms, no vision problems, no itching of the eyes, and no eye pain. Otolaryngeal: No otolaryngeal symptoms, no ear symptoms, no hearing loss, no earache, no nasal discharge, and no postnasal drip. No epistaxis, no nasal passage blockage (stuffiness), no hoarseness, and no sore throat. Breasts: No pain in breast. Cardiovascular: No chest pain or discomfort and no palpitations. Pulmonary: Not feeling congested in the chest, no dyspnea, and not during exertion. No cough and no wheezing. Gastrointestinal: Gastrointestinal symptoms. Normal appetite, no dysphagia, and no pain on swallowing. Heartburn and nausea. No vomiting. Abdominal pain. No melena. Diarrhea. No constipation. Genitourinary: No genitourinary symptoms, no hematuria, and no increase in urinary frequency. No dysuria. Endocrine: No polydipsia, no excessive sweating, and libido has not changed. Musculoskeletal: No musculoskeletal symptoms, no muscle aches, no localized joint pain, and no localized joint stiffness. Neurological: No neurological symptoms, no dizziness, no vertigo, no fainting, no motor disturbances, and no sensory disturbances. Psychological: No psychological symptoms. Anxiety, depression, and sleep disturbances. Skin: No skin symptoms and no pruritus. No skin lesions and no rash. Mental Status Includes: Mental Status from this encounter Description Oriented to time, place, and person Anxiety Functional Status Includes: Functional Status from this encounter No Functional Status Recorded Physical Exam Includes: Physical Exam from this encounter Allergies Includes: Active Allergies No Known Allergies Encounters Encounter Provider Location Date Check-In Time Check-Out Time Diagnosis NEW PATIENT EXAM - ADULT TESSA OLIVARES-BRE Z COAGULATING BATH MIXER-C [facility] 03/10/20 21 2:46PM 4:42PM Fatigue,Abdo aruna Pain Insurance Includes: Active Insurance Policies Plan Name Member ID Group # Subscriber Relationship Effect patience Dates 1 - [facility] [id number] CADEN QURESHI Self Clinical Notes Includes: Clinical Notes from this encounter No Clinical Notes Recorded
--- OUTSIDE RECORDS SUMMARY | 2024-11-18 09:31 | XMS_ITS | Clinical Summary ---
Author Organization [facility] Address [address] [place] [address] Phone Care Team Providers Care Pressing Machine Tender Name Role Phone TESSA GATES Primary Care Provider [phone] DUSTY CUETO, DERIK Unavailable [phone] Reason for Visit and Chief Complaint NO SHOW Plan of Treatment No Plan of Treatment [...] On 1 4:37PM By Tessa MCKEON ; [facility] Pantoprazole Sodium 20 MG Oral Tablet Delayed Release 03/10/2021 Provider: TESSA MCKEON Diagnosis: Gastro-esophagea l reflux dis with esophagitis, without bleed One tablet daily Last Documented On 1 4:37PM By Tessa MCKEON ; [facility] Medications Administered Includes: Administered [...] Location Date Check-In Time Check-Out Time Diagnosis NO SHOW TESSA HARDYP-C [facility]- 1 10:06AM 11:59PM Insurance Includes: Active Insurance Policies Plan Name Member ID Group # Subscriber Relationship Effect patience Dates - [facility] [id number] CADEN QURESHI Self Clinical Notes Includes: Clinical Notes from this encounter No Clinical Notes Recorded
--- OUTSIDE RECORDS SUMMARY | 2024-11-18 09:31 | XMS_ITS | Clinical Summary ---
Author Organization [facility] Address [address] [place] [address] Care Team Providers Care Tent Assembler Name Role Phone Kim Mederos PA-C Primary Care Pr ovider Source Comments [facility],non-owned Affiliates and Associated Physician Practices is amultiple site organization consisting of ambulatory clinics and hospital sitesin [place], [place], [place] and [place]. This disclosure is being madepursuant to the Care Everywhere program and may not contain all information available regarding this patient. Last updated 18.[facility] Allergies Active Allergy Reactions Criticality Noted Date Comments Ibuprofen Shortness of Breath,Rash High 04/06/2017 Medications * Be aware that medications may not be up to date on this document. Alwaysverify current medications with the patient. Medication Sig Dispensed Refills Start Date End Date Status citalopram (CELEXA) 10 MG tablet Take 10 mg by mouth 2 times daily Active Akxfpvqk-Ttc-Vf-FA ( VITAMIN WITH IRON) tablet Take 1 Tab by mouth once daily Active oxyCODONE-acetaminoph en (PERCOCET) 5-325 MG tablet Take 1-2 Tabs by mouth every 4 hours as needed for Pain 30 Tab 04/09/2017 Active docusate sodium (COLACE) 100 MG capsule Take 1 Cap by mouth 2 times daily 60 Cap 2 04/09/2017 Active ferrous sulfate 325 (65 FE) MG tablet Take 1 Tab by mouth 2 times daily with morning and evening meal 60 Tab 04/09/2017 Active polyethylene glycol 3350 (MIRALAX) packet Take 17 g by mouth once daily 25 Packet 1 04/09/2017 Active Active Problems Problem Noted Date Diagnosed Date Placenta previa 04/06/2017 Tobacco use 04/06/2017 Social History Tobacco Use Types Packs/Day Years Used Date Smoking Tobacco: Every Day Cigarettes 0.5 9 Smokeless Tobacco: Never Tobacco Cessation:Ready to Q uit: No; Counseling Given: Yes Alcohol Use Standard Drinks/Week Comments No 0 (1 standard drink = 0.6 oz pur e alcohol) Sex and Gender Information Value Date Recorded Sex Assigned at Not on file Gender Identity Not on file Sexual Orientation Not on file Last Filed Vital Signs Vital Sign Reading Time Taken Comments Blood Pressure 116/67 04/12/2017 11:10 PM CDT Pulse 74 04/10/2017 12:00 AM CDT Temperature 36.8 C (98.2 F) 04/12/2017 10:35 PM CDT Respiratory Rate 18 04/12/2017 11:10 PM CDT Oxygen Saturation 100% 04/10/2017 9:30 AM CDT Inhaled Oxygen Concentration 21% 04/06/2017 1 0:50 PM CDT Weight 55.3 kg (122 lb) 04/12/2017 10:35 PM CDT Height 154.9 cm (5' 1 ) 04/12/2017 10:35 PM CDT Body Mass Index 23.05 04/12/2017 10:35 PM CDT Plan of Treatment Health Maintenance Due Date Last Done Comments PAP SMEAR 1991 HIV SCREENING 2006 HEPATITIS C SCREENING 07/01/2009 DTAP/TDAP/TD VACCINES (1 - Tdap) 2010 HEPATITIS B VACCINE (1 of 3 - 19+ 3-dose series) 2010 PNEUMOCOCCAL VACCINE (1 of 2 - PCV) 2010 COVID-19 VACCINE (1 - 2023-2 5 season) 2024 DEPRESSION SCREENING 08/12/2024 INFLUENZA VACCINE (Season Ended) 2025 07/14/2018, 05/06/2017, 05/12/2014 ZOSTER VACCINE (1 of 2) 2041 HIB VACCINE Aged Out No longer eligi ble based on patient's age to complete this topic HPV VACCINE Aged Out No longer eligi ble based on patient's age to complete this topic MENINGOCOCCAL (Group B) VACCINE SHARED DECISION-MAKING Aged Out No longer eligible based on patient's age to complete this topic MENINGOCOCCAL GROUPS A/C/Y/W VACCINE Aged Out No longer eligible b ased on patient's age to complete this topic Advance Directives * Full Code (Latest Code Status on File) Date Activated Date Inactivated Comments 04/12/2017 10:47 PM 04/13/2017 12:18 AM * Full Code Date Activated Date Inactivated Comments 04/06/2017 12:43 PM 04/10/2017 4:32 PM Care Teams Tent Assembler Relationship Specialty Start Date End Date Kim Mederos PA-C [address] [place] [address] PCP - General Physician Core Feeder 04/09/24
--- OUTSIDE RECORDS SUMMARY | 2024-11-18 09:31 | XMS_ITS | Clinical Summary ---
Author Organization [facility] Address [address] [place] [address] Phone Care Team Providers Care Necktie Operator Pockets And Pieces Name Role Phone TESSA GATES Primary Care Provider [phone] DUSTY CUETO, DERIK Unavailable [phone] Reason for Visit and Chief Complaint NEW PATIENT VISIT Plan of Treatment No Plan of [...] On 1 4:37PM By Tessa MCKEON ; [facility] Pantoprazole Sodium 20 MG Oral Tablet Delayed Release 03/10/2021 Provider: TESSA MCKEON Diagnosis: Gastro-esophagea l reflux dis with esophagitis, without bleed One tablet daily Last Documented On 1 4:37PM By Tessa MCKEON ; [facility] Medications Administered Includes: Administered [...] Check-In Time Check-Out Time Diagnosis NEW PATIENT VISIT [facility] 1 3:15PM 11:59PM Insurance Includes: Active Insurance Policies Plan Name Member ID Group # Subscriber Relationship Effect patience Dates - [facility] [id number] CADEN QURESHI Self Clinical Notes Includes: Clinical Notes from this encounter No Clinical Notes Recorded
--- OUTSIDE RECORDS SUMMARY | 2024-11-18 09:31 | XMS_ITS ---
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 Name Role Phone Liana Navarro Primary Care Provider [phone] Allergies Allergen (clinical drug ingredient) Drug/Non Drug Allergy documented on EMR Reaction Allergy Type Onset Date Status ibuprofen Ibuprofen Unknown Drug Allergy Active REASON FOR VISIT r/s from 11/02; med issues Medications Medication SIG (Take, Route, Frequency, Duration) Notes Start Date End Date Status Pilocarpine HCl 5 MG 1 tablet Orally Twi ce daily for 30 days Active OLANZapine 5 MG 0.5-1 tablet on the tongue and allow to dissolve Orally Once a day for 30 days Active Invega Sustenna 234 MG/1.5ML 1.5 mL Intramuscular every 28 days for 28 days Active Amphetamine-Dextroampheta mine 20 MG 1 tablet Orally Once daily in the afternoon for 7 days 09/02/2024 Acti ve Invega Sustenna 234 MG/1.5ML 1.5 mL Intramuscular one time for 30 days 10/02/2024 Active Amphetamine-Dextroampheta mine 20 MG 1 tablet Orally Once a day for 30 days in the afternoon 10/28/2024 Active Amphetamine-Dextroampheta mine 30 MG 1 tablet Orally Once a day for 30 days in the morning 10/28/2024 Active Amphetamine-Dextroampheta mine 20 MG 1 tablet Orally Once a day for 30 days in the afternoon 09/30/2024 Active Amphetamine-Dextroampheta mine 30 MG 1 tablet Orally Once a day for 30 days in the morning 09/30/2024 Active Naltrexone HCl 50 MG 0.5 tablet Orally Once 2023 Active Omeprazole 20 MG 1 capsule 1/2 to 1 h our before morning meal Orally Once a day Active Venlafaxine HCl ER 150 MG 1 capsule with food Orally Once a day for 30 days Active Vivitrol 380 MG 380 MG Intramuscular EVERY 28 DAYS 02/20/2024 Active traZODone HCl 100 MG 2 tablets at bedtim e as needed Orally Once a day for 30 days Active Venlafaxine HCl 100 MG 1 tablet with ludmila d Orally Once a day for 30 days Active Gabapentin 300 MG 1 capsule Orally thr ee times a day for 30 days Active Amphetamine-Dextroampheta mine 30 MG 1 tablet Orally Twice a day for 30 days 11/09/2024 Active Social History Tobacco Use: Social History Observation Description Date Details (start date - stop date) Current Smoker NA - NA Sex Assigned At : Social History Observation Description Sex Assigned At Female Dont use, Tobacco Use/Smoking Question Answer Notes Are you a current every day smoker Additional Findings: Tobacco User Heavy cigarett e smoker (20-39 cigs/day) Tobacco Control (Standard) Question Answer Notes Tobacco use: Current every day smoker Additional Findings: Tobacco user Moderate cigar ette smoker (10-19 cigs/day) Vital Signs Weight 181.0 lbs 11/09/2024 Height 61 in 11/09/2024 BMI 34.2 kg/m2 11/09/2024 Blood pressure systolic 118 mm Hg 11/10/19 25 Blood pressure diastolic 78 mm Hg 025 Heart Rate 82 /min 11/09/2024 Oximetry 96 % 11/09/2024 Temperature 98.6 degrees Fahrenheit 11/10/19 25 Respiratory Rate 16 /min 11/09/2024 Encounters Encounter Location Date Provider Diagnosis [address] [place] [address] 11/09/2024 Liana Navarro Bipolar 2 disorder, major depressive episode F31.81 ; Sleep disturbances G47.9 ; Adult ADHD F90.9 ; LJ (generalized anxiety disorder) F41.1 and Alcohol use disorder F10.99 Assessments Encounter Date Diagnosis (ICD Code) Assessment Notes Treatment Notes Treatment Clinical Notes Section Notes 11/09/2024 Bipolar 2 disorder, major depressive episode (ICD-10 - F31.81) Invega LAKHANI and olanzapine- Take as prescribed. Reviewed purpose (mood stability), benefits, and risks - low blood pressure, metabolic syndrome with high cholesterol or high blood sugars, change in cardiac conduction, nausea, vomiting, temporary or permanent movement disorders, and akathisia. Explained that no medication can be guaranteed to be 100% safe for baby or mother. 11/09/2024 Sleep disturbances (ICD-10 - G47.9) Continue trazodone as client reports this was the most helpful Hx: trazodone 300mg with moderate efficacy and increase in appetite Mirtazapine and Quetiapine with poor efficacy and appetite increase Doxepin at 10 mg not efficacious 11/09/2024 Adult ADHD (ICD-10 - F90.9) has reported hx of ADHD and poor concentration in the past. PDMP checked without concerns. 11/09/2024 LJ (generalized anxiety disorder) (ICD-10 - F41.1) 11/09/2024 Alcohol use disorder (ICD-10 - F10.99) Reports sobriety is going well, continue therapy. 11/09/2024 Other Reasons, potential benefits, potential risks, interactions and side effects of all medications were discussed. The Patient/Guardian asked appropriate questions, appeared to understand the answers, and decided to accept the treatment and continue being followed. Alternatives and expected course without treatment were reviewed. The Patient/Guardian is aware of the need to contact the office or return for an earlier appointment if any problems or concerns arise. May also contact the 24-hour crisis hotline ([facility]), refer to the closest emergency room or call 911 if new symptoms arise of existing symptoms worsen. The Patient/Guardian is aware that this would apply to symptoms like: suicidal ideation, homicidal ideation, high risk behaviors, manic symptoms, psychotic symptoms, physical symptoms, or any other symptoms that may be dangerous to self or others. Greater than 50% of time spent on coordination and counseling where psychopharmacology as well as psychotherapeutic interventions were discussed along with review of treatments in the past. Education provided concerning need for adequate hydration. Patient/Guardian verbalized understanding of education, treatment plan and follow up. Plan Of Treatment Medication Medication Name Sig Start Date Stop Date Notes Pilocarpine HCl 5 MG 1 tablet Orally Twi ce daily for 30 days OLANZapine 5 MG 0.5-1 tablet on the tongue and allow to dissolve Orally Once a day for 30 days Invega Sustenna 234 MG/1.5ML 1.5 mL Intr amuscular every 28 days for 28 days Venlafaxine HCl ER 150 MG 1 capsule with food Orally Once a day for 30 days traZODone HCl 100 MG 2 tablets at bedtim e as needed Orally Once a day for 30 days Venlafaxine HCl 100 MG 1 tablet with ludmila d Orally Once a day for 30 days Gabapentin 300 MG 1 capsule Orally thr ee times a day for 30 days Amphetamine-Dextroamphetamin e 30 MG 1 tablet Orally Twice a day for 30 days 11/09/2024 Treatment Notes Assessment Notes Bipolar 2 disorder, major de pressive episode Invega LAKHANI and olanzapine- Take as prescribed. Reviewed purpose (mood stability), benefits, and risks - low blood pressure, metabolic syndrome with high cholesterol or high blood sugars, change in cardiac conduction, nausea, vomiting, temporary or permanent movement disorders, and akathisia. Explained that no medication can be guaranteed to be 100% safe for baby or mother. Sleep disturbances Continue trazodone a s client reports this was the most helpful Adult ADHD PDMP checked without concerns. Alcohol use disorder Reports sobriety is going well, continue therapy. Other Reasons, potential benefits, potential risks, interactions and side effects of all medications were discussed. The Patient/Guardian asked appropriate questions, appeared to understand the answers, and decided to accept the treatment and continue being followed. Alternatives and expected course without treatment were reviewed. The Patient/Guardian is aware of the need to contact the office or return for an earlier appointment if any problems or concerns arise. May also contact the 24-hour crisis hotline ([facility]), refer to the closest emergency room or call 911 if new symptoms arise of existing symptoms worsen. The Patient/Guardian is aware that this would apply to symptoms like: suicidal ideation, homicidal ideation, high risk behaviors, manic symptoms, psychotic symptoms, physical symptoms, or any other symptoms that may be dangerous to self or others. Greater than 50% of time spent on coordination and counseling where psychopharmacology as well as psychotherapeutic interventions were discussed along with review of treatments in the past. Education provided concerning need for adequate hydration. Patient/Guardian verbalized understanding of education, treatment plan and follow up. Next Appt Details Follow Up: 4 Weeks, Reason: Psych F/U, may be telehealth Provider Name:Liana disla, 12/07/2024 03:20:00 PM, [address] [facility], [place], [address], Medications Administered Medication Instructions Date of Administration Dosage Notes Invega Sustenna 11/09/2024 234 mg Pt tracy we ll. Sample used. 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 W as hospitalized N o.? D epression Screening: PHQ-9 L ittle interest or pleasure in doing things S everal days, F eeling down, depressed, or hopeless S everal days, T rouble falling or staying asleep, or sleeping too much N ot at all, F eeling tired or having little energy S everal days, P oor appetite or overeating N ot at all, F eeling bad about yourself or that you are a failure, or have let yourself or your family down S everal days, T rouble concentrating on things, such as reading the newspaper or watching television N ot at all, M oving or speaking so slowly that other people could have noticed; or the opposite, being so fidgety or restless that you have been moving around a lot more than usual N ot at all, T houghts that you would be better off or of hurting yourself in some way N ot at all, T otal Score 4 , I nterpretation M inimal Depression. C SSRS Interpretation and Follow Up Plan: CSSRS Interpretation and Follow Up Plan C SSRS Screen documented using SF Y es, R isk Disposition from SF L ow - No Follow Up Plan Required, F ollow Up Plan N o Follow Up Plan required at this time., T imeframe of Screening Svitlana zuniga.? S creening: [place] Suicide Severity Rating Scale (LF) D o you want to initiate with S creener form, 1 . Wish to be : Have you wished you were or wished you could go to sleep and not wake up? N o, 2 . Suicidal Thoughts: Have you actually had any thoughts of killing yourself? N o, 6 . Suicide Behavior Question: Have you ever done anything,started to do anything, or prepared to end your life? N o, I nterpretation: L ow Risk. P sychiatric Assessment - Current Symptoms: How ct. doing today? Client is a 34 yo F in office today reporting irritable more. States feeling depressed vs or just not much happiness. Reports feeling sad and blah. Goals? --- Working Coping strategies? --- Uses skills per client Social Activities?-- Talks with family and friends Going to work, left my soda on a dresser Drugs/ETOH? Denies Therapy?-- Denies Medications effective.--- Somewhat Medication Adherence--- Takes well, maybe once a week Side effects.--- Denies Sleep-- Okay, still wake up like 3 or 4 times per night. Appetite- More at night Depression--- 4-5/10 Anxiety--- 4-5/10 Anger/Irritability--- 7-8/ Hallucinations---Paranoia--- Denies Suicidal ideation--- Denies Homicidal ideation--- Denies Medical concerns - Denies. * ROS: P sych ROS: Constitutional D enies. E yes D enies. E ars/Nose/Mouth/Throat D enies. R espiratory D enies. A llergic/Immunologic D enies.?Cardiovascular D enies. G I D enies. G U D enies. M usculoskeletal D enies. N eurological D enies. I ntegumentary D enies. E ndocrine D enies.?Hematological/Lymphatic D enies. P sych R eports irritability, Denies SI/HI/AH/VH. * Medical History: * Surgical History: C section 2017 Exploratory surgery through my belly button 2011tubal ligation * Hospitalization/Major Diagno stic Procedure: astrid gillespie x 3-2012 2013 2016 * Family History: F ather: alive, Diabetes, COPD, alcoholic. M other: alive, Healthy. 2 sister(s) - healthy. 1 son(s) , 2 daughter(s) - healthy. . * Social History: P rimary Social History: L iving Arrangement L iving Arrangement: D ependent Living, L iving with: Paul randparent(s), I s this a supportive environment? Yes. A lcohol Use A lcohol Use Frequency: N ever. I llicit Substance Usage I llicit Substance Usage: Y es. E mployment Status E mployment Status: U nemployed. T obacco Use: D ont use, Tobacco Use/Smoking A re you a c urrent every day smoker, A dditional Findings: Tobacco User H eavy cigarette smoker (20-39 cigs/day). T obacco Control (Standard) Tobacco use: C urrent every day smoker, A dditional Findings: Tobacco user M oderate cigarette smoker (10-19 cigs/day). M iscellaneous: M ethod of learning P referred method of learning: John dale,Discussion,Demonstration,Hearing. * Medications: T akingVivitrol 380 MG Suspension Reconstituted 380 MG Intramuscular EVERY 28 DAYS Omeprazole 20 MG Capsule Delayed Release 1 capsule 1/2 to 1 hour before morning meal Orally Once a day Naltrexone HCl 50 MG Tablet 0.5 tablet Orally Once OLANZapine 5 MG Tablet Disintegrating 0.5-1 tablet on the tongue and allow to dissolve Orally Once a day Pilocarpine HCl 5 MG Tablet 1 tablet Orally Twice daily Gabapentin 300 MG Capsule 1 capsule Orally three times a day Venlafaxine HCl ER 150 MG Capsule Extended Release 24 Hour 1 capsule with food Orally Once a day Venlafaxine HCl 100 MG Tablet 1 tablet with food Orally Once a day traZODone HCl 100 MG Tablet 2 tablets at bedtime as needed Orally Once a day Amphetamine-Dextroamphetamine 30 MG Tablet 1 tablet Orally Once a day in the morningAmphetamine-Dextroamphetamine 20 MG Tablet 1 tablet Orally Once a day in the afternoonAmphetamine-Dextroamphetamine 30 MG Tablet 1 tablet Orally Once a day in the morningAmphetamine-Dextroamphetamine 20 MG Tablet 1 tablet Orally Once a day in the afternoonInvega Sustenna 234 MG/1.5ML Suspension Prefilled Syringe 1.5 mL Intramuscular one time Invega Sustenna 156 MG/ML Suspension Prefilled Syringe 1 mL Intramuscular on day 8 Amphetamine-Dextroamphetamine 30 MG Tablet 1 tablet Orally Once daily in the morning Amphetamine-Dextroamphetamine 20 MG Tablet 1 tablet Orally Once daily in the afternoon Taking Vivitrol 380 MG Suspension Reconstituted 380 MG Intramuscular EVERY 28 DAYS Taking Omeprazole 20 MG Capsule Delayed Release 1 capsule 1/2 to 1 hour before morning meal Orally Once a day Taking Naltrexone HCl 50 MG Tablet 0.5 tablet Orally Once Taking OLANZapine 5 MG Tablet Disintegrating 0.5-1 tablet on the tongue and allow to dissolve Orally Once a day Taking Pilocarpine HCl 5 MG Tablet 1 tablet Orally Twice daily Taking Gabapentin 300 MG Capsule 1 capsule Orally three times a day Taking Venlafaxine HCl ER 150 MG Capsule Extended Release 24 Hour 1 capsule with food Orally Once a day Taking Venlafaxine HCl 100 MG Tablet 1 tablet with food Orally Once a day Taking traZODone HCl 100 MG Tablet 2 tablets at bedtime as needed Orally Once a day Taking Amphetamine-Dextroamphetamine 30 MG Tablet 1 tablet Orally Once a day in the morningTaking Amphetamine-Dextroamphetamine 20 MG Tablet 1 tablet Orally Once a day in the afternoonTaking Amphetamine-Dextroamphetamine 30 MG Tablet 1 tablet Orally Once a day in the morningTaking Amphetamine-Dextroamphetamine 20 MG Tablet 1 tablet Orally Once a day in the afternoonTaking Invega Sustenna 234 MG/1.5ML Suspension Prefilled Syringe 1.5 mL Intramuscular one time Taking Invega Sustenna 156 MG/ML Suspension Prefilled Syringe 1 mL Intramuscular on day 8 Taking Amphetamine-Dextroamphetamine 30 MG Tablet 1 tablet Orally Once daily in the morning Taking Amphetamine-Dextroamphetamine 20 MG Tablet 1 tablet Orally Once daily in the afternoon * Allergies: I bridget[Allergies Verified] Objective: * Vitals: I nitials: rt, Wt:181.0, Ht: 61, BMI:34.2, BP:118/78, HR:82, Oxygen sat %:96, Temp:98.6, RR:16, LMP: NA, Pain scale:0. * Examination: M ental Status Exam: SENSORIUM AND COGNITION Alert, Oriented to Person, Oriented to Place, Oriented to Time, Oriented to Situation. ATTENTION AND CONCENTRATION Impaired attention/concentration by kids often, able to be redirected well. APPEARANCE A ppropriate. ATTITUDE AND BEHAVIOR Cooperative, Receptive. MEMORY Immediate, Recent, Remote. EYE CONTACT G ood. AFFECT C cristino, Composed,Serious. MOOD E uthymic. SPEECH QUANTITY Appropriate. SPEECH QUALITY Appropriate volume. THOUGHT PROCESS Coherent and goal directed. THOUGHT CONTENT Appropriate - WNL. MOTOR ACTIVITY N ormal gait, Goal directed, No abnormal movements or tics noted. SUICIDAL IDEATION Denies suicidal ideation. HOMICIDAL IDEATION Denies homicidal ideation. HALLUCINATIONS Denies hallucinations. INSIGHT Good. JUDGMENT Good. FUND OF KNOWLEDGE Good. ABILITY TO PARTICIPATE IN TREATMENT High-moderate. WILLINGNESS TO PARTICIPATE IN TREATMENT High-moderate.? Assessment: * Assessment: 1. B ipolar 2 disorder, major depressive episode - F31.81 2 . S leep disturbances - G47.9 3 . A dult ADHD - F90.9 N otes :has reported hx of ADHD and poor concentration in the past. 4 . G AD (generalized anxiety disorder) - F41.1 5 . A lcohol use disorder - F10.99 Plan: * Treatment: 2. S leep disturbances Refill traZODone HCl Tablet, 100 MG, 2 tablets at bedtime as needed, Orally, Once a day, 30 days, 60 Tablet, Refills 0. Notes: Continue trazodone as client reports this was the most helpful Clinical Notes: Hx: trazodone 300mg with moderate efficacy and increase in appetite Mirtazapine and Quetiapine with poor efficacy and appetite increase Doxepin at 10 mg not efficacious 3. A dult ADHD Increase Amphetamine-Dextroamphetamine Tablet, 30 MG, 1 tablet, Orally, Twice a day, 30 days, 60 Tablet, Refills 0. Notes: PDMP checked without concerns. 4. G AD (generalized anxiety disorder) Refill Gabapentin Capsule, 300 MG, 1 capsule, Orally, three times a day, 30 days, 90 Capsule, Refills 0; R efill Venlafaxine HCl ER Capsule Extended Release 24 Hour, 150 MG, 1 capsule with food, Orally, Once a day, 30 days, 30 Capsule, Refills 0; R efill Venlafaxine HCl Tablet, 100 MG, 1 tablet with food, Orally, Once a day, 30 days, 30 Tablet, Refills 0. 5. A lcohol use disorder Notes: Reports sobriety is going well, continue therapy. 6. O thers Notes: Reasons, potential benefits, potential risks, interactions and side effects of all medications were discussed. The Patient/Guardian asked appropriate questions, appeared to understand the answers, and decided to accept the treatment and continue being followed. Alternatives and expected course without treatment were reviewed. The Patient/Guardian is aware of the need to contact the office or return for an earlier appointment if any problems or concerns arise. May also contact the 24-hour crisis hotline (R), refer to the closest emergency room or call 911 if new symptoms arise of existing symptoms worsen. The Patient/Guardian is aware that this would apply to symptoms like: suicidal ideation, homicidal ideation, high risk behaviors, manic symptoms, psychotic symptoms, physical symptoms, or any other symptoms that may be dangerous to self or others. Greater than 50% of time spent on coordination and counseling where psychopharmacology as well as psychotherapeutic interventions were discussed along with review of treatments in the past. Education provided concerning need for adequate hydration. Patient/Guardian verbalized understanding of education, treatment plan and follow up. * Therapeutic Injections: Invega Sustenna : 234 mg (Dose No:1) (Route: Intramuscular) given by Mia Baeza RN on left gluteus * Procedure Codes: [id number] THER/PROPH/DIAG INJ, SC/IM * Follow Up: 4 Weeks (Reason: Psych F/U, may be telehealth) * * Sign off status: Completed true * Provider: Osmin Navarro, MSN, FORK TRUCK DRIVER, ONLINE ADVERTISING ANALYST-C Date: 0 11/09/2024 Generated for Noy singh/Carmen/eTransmitting on: 0 11/18/2024 09:30 AM CDT History and Physical Notes * HPI (History of Present Illness) Category Sub-Category Detail Notes Category Not es Interim History Was hospitalized No Emergency room visit No Depression Screening PHQ-9 Little inte rest or pleasure in doing things: Several days Feeling down, depressed, or hopeless: Se veral days Trouble falling or staying asleep, or sl eeping too much: Not at all Feeling tired or having little energy: S everal days Poor appetite or overeating: Not at all Feeling bad about yourself o r that you are a failure, or have let yourself or your family down: Several days Trouble concentrating on thi ngs, such as reading the newspaper or watching television: Not at all Moving or speaking so slowly that other people could have noticed; or the opposite, being so fidgety or restless that you have been moving around a lot more than usual: Not at all Thoughts that you would be b krzysztof off or of hurting yourself in some way: Not at all Total Score: 4 Interpretation: Minimal Depression Psychiatric Assessment - Current Symptoms How ct. doing today? Client is a 34 yo F in office today reporting irritable more. States feeling depressed vs or just not much happiness. Reports feeling sad and blah. Goals? --- Working Coping strategies? --- Uses skills per client Social Activities?-- Talks with family and friends Going to work, left my soda on a dresser Drugs/ETOH? Denies Therapy?-- Denies Medications effective.--- Somewhat Medication Adherence--- Takes well, maybe once a week Side effects.--- Denies Sleep-- Okay, still wake up like 3 or 4 times per night. Appetite- More at night Depression--- 4-510 Anxiety--- 4-5/10 Anger/Irritability--- 7-8 Hallucinations---Paranoia--- Denies Suicidal ideation--- Denies Homicidal ideation--- Denies Medical concerns - Denies Screening [place] Suicide Severity Rating Scale (LF) Do you want to initiate with: Screener form 1. Wish to be : Have you wished you were or wished you could go to sleep and not wake up?: No 2. Suicidal Thoughts: Have you actually had any thoughts of killing yourself?: No 6. Suicide Behavior Question: Have you ever done anything,started to do anything, or prepared to end your life?: No Interpretation:: Low Risk CSSRS Interpretation and Follow Up Plan CSSRS Interpretation and Follow Up Plan CSSRS Screen documented using SF: Yes Risk Disposition from SF: Low - No Follo w Up Plan Required Follow Up Plan: No Follow Up Plan requir ed at this time. Timeframe of Screening: Today Examination Category Sub-Category Detail Notes Category Not es Mental Status Exam SENSORIUM AND COGNITION Alert , Oriented to Person, Oriented to Place, Oriented to Time, Oriented to Situation ATTENTION AND CONCENTRATION Impaired att ention/concentration by kids often, able to be redirected well APPEARANCE Appropriate ATTITUDE AND BEHAVIOR Cooperative, [employer] Forms Developer tive MEMORY Immediate, Recent, R emote EYE CONTACT Good AFFECT Calm, Composed, Seri ous MOOD Euthymic SPEECH QUANTITY Appropriate SPEECH QUALITY Appropriate volume THOUGHT PROCESS Coherent and goal di rected THOUGHT CONTENT Appropriate - WNL MOTOR ACTIVITY Normal gait, Goal di rected, No abnormal movements or tics noted SUICIDAL IDEATION Denies suicidal idea tion HOMICIDAL IDEATION Denies homicidal saman ation HALLUCINATIONS Denies hallucination s INSIGHT Good JUDGMENT Good FUND OF KNOWLEDGE Good ABILITY TO PARTICIPATE IN TREATMENT High -moderate WILLINGNESS TO PARTICIPATE I N TREATMENT High-moderate
--- OUTSIDE RECORDS SUMMARY | 2024-11-18 09:31 | XMS_ITS ---
[facility] Organization [facility] Address [address] [place] [address] Care Team Providers Care Marine Water Tender Name Role Phone Liana Navarro Primary Care Provider REASON FOR VISIT med issues Social History Sex Assigned At : Social History Observation Description Sex Assigned At Female Encounters Encounter Location Date Provider Diagnosis [address] [address] 11/02/2024 Liana Navarro Plan Of Treatment Next Appt Details Provider Name:Liana disla, 12/07/2024 03:20:00 PM, [address] [place] [address], [place], [address], Progress Notes * Marycarmen QURESHIDOB:1990 (34 yo F)Acc No.[id number]:11/02/2024 UNLOCKED PROGRESS NOTE Patient: Marycarmen BALES Provider: Osmin Navarro, MSN, SCIENCE SPECIALIST, AGRONOMY LOCATION MANAGER-C :1990 A ge:34 Y S ex:Female Date:11/02/2024 Address:[address] [facility] Subjective: * Chief Complaints: * 1 . Med issues. * Medical History: Objective: * Vitals: Assessment: Plan: * Treatment: * * Electronic signature of Logan Navarro , [id number] on 11/18/2024 at 09:31 AM CDT Sign off status: Pending * Provider: Osmin Navarro, MSN, SCIENCE SPECIALIST, AGRONOMY LOCATION MANAGER-C Date: 0 11/02/2024 Generated for Noy singh/Carmen/Yadi on: 0 11/18/2024 09:31 AM CDT
--- OUTSIDE RECORDS SUMMARY | 2024-11-18 09:31 | XMS_ITS ---
Care Plan - [facility] Created on: November 18, 2024 CADEN QURESHI : 1990 Sex: Female Author Organization [facility] Address [address] [place] [address] Phone Care Team Providers Care Sap Portal Developer Name Role Phone TESSA GATES Primary Care Provider [phone] DUSTY CUETO, DERIK [facility] [phone]
--- OUTSIDE RECORDS SUMMARY | 2024-11-18 09:32 | XMS_ITS | Data Portability ---
Author Organization 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 risks of hysterectomy also discussed in detail. Had recent normal pelvic US. Not available 01/22/2024 10:59:35 Plan of Treatment Reminders Order Date Submit Date Provider Last Modified By Organization Details Last Modified Time Details Appointments None recorde d. Lab culture , urine 2023 024 [facility], [address] [place] [address], [place], [address], 07:14:09 biopsy, colposc opy - Specime n #1) ECCSpec imen #2) 3 o'clock Specime n #3) 6 o'clock Specime n #4)9 o'clock 4 contain ers 2023 024 [email or web address] [facility], [address] [facility], [place], [address], 09:57:22 pregnan cy test, urine 2023 024 [email or web address] In-Office Order, Internal Use Only DO Not Attach Compendium DO Not Attach Compendium, Do Not Delete/merge, [id number] 4 10:40:07 cytolog y report, thin prep, smear or scrapin g, cervica l or vaginal 2023 024 [facility], [address], [place], [address], 4 11:14:46 vaginal pathoge ns panel, GURJIT+pro be, vaginal fluid 2023 024 [facility], [address], [place], [address], 4 11:08:51 mycopla sma genital ium DNA, qualita tive, PCR 2023 024 [facility], [address], [place], [address], 4 07:14:35 HIV 1 + 2, meaning ful use set 2023 024 [facility], [address], [place], [address], 4 07:15:53 RPR (rapid plasma reagin) , serum 2023 024 [facility], [address], [place], [address], 4 07:15:52 Hepatit is C IgG Ab, qual, serum 2023 024 [facility], [address], [place], [address], 4 07:15:46 HBsAg (hepati tis B surface Ag), EIA, serum 2023 024 [facility], [address], [place], [address], 4 07:15:51 hsv (1+2) igg, serum 2023 024 [facility], [address], [place], [address], 4 07:15:47 HCG, intact + beta subunit , quant, serum or plasma 2023 024 [facility], [address] [facility], [place], [address], 4 07:15:49 progest erone, serum 2023 024 [facility], [address] [facility], [address], [place], [address], 4 07:15:48 prolact in, serum 2023 024 [facility], [address] [facility], [address], [place], [address], 4 07:15:49 lh + FSH, serum 2023 024 [facility], [address] [facility], [address], [place], [address], 4 07:15:52 TSH + free T4, serum 2023 024 [facility], [address] [facility], [address], [place], [address], 4 07:15:47 estradi ol, serum 2023 024 [facility], [address] [facility], [place], [address], 4 07:15:50 CBC w/ auto diff 2023 024 [facility], [address] [facility], [place], [address], 4 07:15:50 testost erone, free + total, serum 2023 024 [facility], [address] [facility], [place], [address], 4 07:15:46 HbA1c (hemogl obin A1c), blood 2023 024 [facility], [address] [facility], [place], [address], 4 07:15:48 cytolog y report, thin prep, smear or scrapin g, cervica l or vaginal - brush and broom 2022 023 [facility], [address] [facility], [address], [place], [address], 3 16:10:24 CBC w/ auto diff 2022 023 [facility], [address] [facility], [address], [place], [address], 3 17:08:43 iron + total iron-bi nding capacit y (TIBC), serum 2022 023 [facility], [address] [facility], [address], [place], [address], 3 08:20:51 TSH + free T4, serum 2022 023 [facility], [address] [facility], [address], [place], [address], 3 08:20:50 Referral None recorde d. Procedures None recorde d. Surgeries None recorde d. Imaging None recorde d. Medication Orders None recorde d. Patient TargetsNo targets recorded. Patient Instructions Encounter Date Encounter Id Patient Instructions Last Modified By Organization Details Last Modified Time 08/15/2022 [id number] On the date of this encounter, I was immediately available to assist the resident/fellow in the care of the patient, and have reviewed and agree with the resident s findings and plan of care. [email or web address] Not available 08/22/2022 18:34:44 12/11/2023 [id number] A healthy lifestyle: care instructions [email or web address] Not available 12/11/2023 15:10:32 Quitting Tobacco: Care Instructions [email or web address] Not available 12/11/2023 15:10:32 secondary amenorrhea: care instructions [email or web address] Not available 12/11/2023 15:10:32 12/25/2023 [id number] abnormal Pap test: care instructions [email or web address] Not available 12/25/2023 10:40:07 colposcopy: before your procedure [email or web address] Not available 12/25/2023 10:40:07 01/22/2024 [id number] A healthy lifestyle: care instructions Not available 01/22/2024 10:59:36 Reason for Referral None Reported. Results Created Date Observation Date Name Description Value Unit Range Abnormal Flag Note LastModifiedBy Organization Detail LastModifiedTime 08/15/1908/15/2022 CBC WITH DIFFE RENTI AL/PL ATELE T WBC 9.3 K/uL 3.4-10 .8 Not Available [facility] Department [address] [place], [address], 08/15/2022 17:08:43 08/15/19 23 08/15/2022 CBC WITH DIFFE RENTI AL/PL ATELE T RBC 4.7 M/uL 4.2-5. 4 Not Available [facility] [address] [place], [address], 08/15/2022 17:08:43 08/15/19 23 08/15/2022 CBC WITH DIFFE RENTI AL/PL ATELE T hemoglobin 13.9 g/dL 11.5-1 5.5 Not Available [facility] [address] [place], [address], 08/15/2022 17:08:43 08/15/19 23 08/15/2022 CBC WITH DIFFE RENTI AL/PL ATELE T hematocrit 42.7 % 36.0-4 8.0 Not Available [facility] [address] [place], [address], 08/15/2022 17:08:43 08/15/19 23 08/15/2022 CBC WITH DIFFE RENTI AL/PL ATELE T MCV 91 fL 80-95 Not Available [facility] [address] [place], [address], 08/15/2022 17:08:43 08/15/19 23 08/15/2022 CBC WITH DIFFE RENTI AL/PL ATELE T MCH 30 pg 27-32 Not Available [facility] [address] [place], [address], 08/15/2022 17:08:43 08/15/19 23 08/15/2022 CBC WITH DIFFE RENTI AL/PL ATELE T MCHC 33 g/dL 32-36 Not Available [facility] [address] [place], [address], 08/15/2022 17:08:43 08/15/19 23 08/15/2022 CBC WITH DIFFE RENTI AL/PL ATELE T RDW 13.1 % 11.5-1 4.5 Not Available [facility] [address] [place], [address], 08/15/2022 17:08:43 08/15/19 23 08/15/2022 CBC WITH DIFFE RENTI AL/PL ATELE T platelets 277 K/uL 155-37 9 MPV 12.2 FL 8.9-1 2.7 N Not Available [facility] [address] [place], [address], 08/15/2022 17:08:43 08/15/19 23 08/15/2022 CBC WITH DIFFE RENTI AL/PL ATELE T neutrophils 71.0 % 40.0-7 4.0 Not Available [facility] [address] [place], [address], 08/15/2022 17:08:43 08/15/19 23 08/15/2022 CBC WITH DIFFE RENTI AL/PL ATELE T lymphs 15.5 % 14.0-4 6.0 Not Available [facility] [address] [place], [address], 08/15/2022 17:08:43 08/15/19 23 08/15/2022 CBC WITH DIFFE RENTI AL/PL ATELE T monocytes 8.3 % 4.0-12 .0 Not Available [facility] [address] [place], [address], 08/15/2022 17:08:43 08/15/19 23 08/15/2022 CBC WITH DIFFE RENTI AL/PL ATELE T eos 3 % 0-5 Not Available [facility] [address] [place], [address], 08/15/2022 17:08:43 08/15/19 23 08/15/2022 CBC WITH DIFFE RENTI AL/PL ATELE T basos 0.3 % 0.0-1. 0 Not Available [facility] [address] [place], [address], 08/15/2022 17:08:43 08/15/19 23 08/15/2022 CBC WITH DIFFE RENTI AL/PL ATELE T neutrophils (absolute) 6.6 K/uL 1.4-7. 0 Not Available [facility] [address] [place], [address], 08/15/2022 17:08:43 08/15/19 23 08/15/2022 CBC WITH DIFFE RENTI AL/PL ATELE T lymphs (absolute) 1.4 K/uL 0.7-3. 1 Not Available [facility] [address] [place], [address], 08/15/2022 17:08:43 08/15/19 23 08/15/2022 CBC WITH DIFFE RENTI AL/PL ATELE T monocytes(ab solute) 0.8 K/uL 0.1-0. 9 Not Available [facility] [address] [place], [address], 08/15/2022 17:08:43 08/15/19 23 08/15/2022 CBC WITH DIFFE RENTI AL/PL ATELE T eos (absolute) 0.3 K/uL 0.0-0. 4 Not Available [facility] [address] [place], [address], 08/15/2022 17:08:43 08/15/19 23 08/15/2022 CBC WITH DIFFE RENTI AL/PL ATELE T baso (absolute) 0.0 K/uL 0.0-0. 3 Not Available [facility] [address] [place], [address], 08/15/2022 17:08:43 08/15/19 23 08/15/2022 CBC WITH DIFFE RENTI AL/PL ATELE T immature granulocytes 2.2 % Not Available [facility] Department [address] [place], [address], 08/15/2022 17:08:43 08/15/19 23 08/15/2022 CBC WITH DIFFE RENTI AL/PL ATELE T immature grans (abs) 0.2 K/uL Not Available [facility] Department [address] [place], [address], 08/15/2022 17:08:43 08/15/19 23 08/15/2022 CBC WITH DIFFE RENTI AL/PL ATELE T NRBC 0 % Not Available [facility] [address] [place], [address], 08/15/2022 17:08:43 08/15/19 23 08/16/2022 TSH+F REE T4 TSH 3.220 uIU/m L 0.450- 4.500 Not Available [facility] ([facility]) [address] [place], [address], 08/16/2022 08:20:50 08/15/19 23 08/16/2022 TSH+F REE T4 T4,free(dire ct) 1.26 NG/dL 0.82-1 .77 Not Available [facility] ([facility]) [address] [place], [address], 08/16/2022 08:20:50 08/15/19 23 08/16/2022 IRON AND TIBC iron bind.cap.(TI BC) 321 ug/dL 250-45 0 Not Available [facility] ([facility]) [address] [place], [address], 08/16/2022 08:20:51 08/15/19 23 08/16/2022 IRON AND TIBC UIBC 274 ug/dL 131-42 5 Not Available [facility] ([facility]) [address] [place], [address], 08/16/2022 08:20:51 08/15/19 23 08/16/2022 IRON AND TIBC iron 47 ug/dL 27-159 Not Available [facility] ([facility]) [address] [place], [address], 08/16/2022 08:20:51 08/15/19 23 08/16/2022 IRON AND TIBC iron saturation 15 % 15-55 Not Available [facility] ([facility]) [address] [place], [address], 08/16/2022 08:20:51 07/31/20 23 08/01/2023 IGP, APTIM A HPV, RFX 16/18 ,45 HPV aptima Positi ve negati ve abnormal This nucle ic acid ampli ficat ion test detec ts fourt een high- risk HPV types (16,1 8,31, 33,35 ,39,4 5,51, 52,56 ,58,5 9,66, 68) witho ut diffe renti ation . Not Available [facility] ([facility]) [address] [facility], [place], [address], 08/06/2023 16:10:24 07/31/20 23 08/06/2023 IGP, APTIM A HPV, RFX 16/18 ,45 diagnosis: Commen t abnormal EPITH ELIAL CELL ABNOR MALIT Y. ATYPI KANDIS SQUAM OUS CELLS OF UNDET ERMIN ED SIGNI FICAN CE (ASC- US). Not Available [facility] ([facility]) [address] [facility], [place], [address], 08/06/2023 16:10:24 07/31/20 23 08/06/2023 IGP, APTIM A HPV, RFX 16/18 ,45 recommendati on: Commen t abnormal Sugge st follo w up as clini lazaro appro priat e. Not Available [facility] ([facility]) [address] [facility], [place], [address], 08/06/2023 16:10:24 07/31/20 23 08/06/2023 IGP, APTIM A HPV, RFX 16/18 ,45 specimen adequacy: Commen t Satis facto ry for evalu ation . Endoc ervic al and/o r squam ous metap lasti c cells (endo cervi kandis compo nent) are prese nt. Not Available [facility] ([facility]) [address] [facility], [place], [address], 08/06/2023 16:10:24 07/31/20 23 08/06/2023 IGP, APTIM A HPV, RFX 16/18 ,45 clinician provided ICD10: Jeimy guajardo Z01.4 19 Not Available [facility] ([facility]) [address] [place], [address], 08/06/2023 16:10:24 07/31/20 23 08/06/2023 IGP, APTIM A HPV, RFX 16/18 ,45 performed by: Jeimy Ingram , Cytot echno logis t (ASCP ) Not Available [facility] ([facility]) [address] [place], [address], 08/06/2023 16:10:24 07/31/20 23 08/06/2023 IGP, APTIM A HPV, RFX 16/18 ,45 electronical ly signed by: Jeimy Dueñas MD, Patho logis t Not Available [facility] ([facility]) [address] [place], [address], 08/06/2023 16:10:24 07/31/20 23 08/06/2023 IGP, APTIM A HPV, RFX 16/18 ,45 . . Not Available [facility] ([facility]) [address] [place], [address], 08/06/2023 16:10:24 07/31/20 23 08/06/2023 IGP, APTIM A HPV, RFX 16/18 ,45 pathologist provided ICD10: Jeimy guajardo R87.6 10 Not Available [facility] ([facility]) [address] [place], [address], 08/06/2023 16:10:24 07/31/20 23 08/06/2023 IGP, APTIM A HPV, RFX 16/18 ,45 note: Jeiym guajardo The Pap smear is a scree aditi test desig miri to aid in the detec tion of gina ligna nt and malig nant condi tions of the uteri ne cervi x. It is not a diagn ostic proce dure and shoul d not be used as the sole means of detec ting cervi kandis cance r. Both false -posi tive and false -nega tive repor ts do occur . Not Available [facility] ([facility]) [address] [place], [address], 08/06/2023 16:10:24 07/31/20 23 08/06/2023 IGP, APTIM A HPV, RFX 16/18 ,45 test methodology: Commen t This liqui d based ThinP rep(R ) pap test was scredelores chery with the use of an image guide ketan horta. Not Available [facility] ([facility]) [address] [place], [address], 08/06/2023 16:10:24 07/31/20 23 08/06/2023 IGP, APTIM A HPV, RFX 16/18 ,45 HPV genotype reflex Commen t Crite constantine not met, HPV Genot ype not perfo rmed. Not Available [facility] ([facility]) [address] [place], [address], 08/06/2023 16:10:24 12/11/19 24 12/14/2023 M GENIT ALIUM GURJIT, SWAB mycoplasma genitalium GURJIT Negati ve negati ve Not Available [facility] ([facility]) [address] [place], [address], 12/14/2023 07:14:35 12/11/19 24 12/12/2023 IGP, APTIM A HPV, RFX 16/18 ,45 HPV aptima Positi ve negati ve abnormal This nucle ic acid ampli ficat ion test detec ts fourt een high- risk HPV types (16,1 8,31, 33,35 ,39,4 5,51, 52,56 ,58,5 9,66, 68) witho ut diffe renti ation . Not Available [facility] ([facility]) [address] [place], [address], 12/17/2023 11:14:46 12/11/19 24 12/17/2023 IGP, APTIM A HPV, RFX 16/18 ,45 diagnosis: Commen t abnormal EPITH ELIAL CELL ABNOR MALIT Y. LOW GRADE SQUAM OUS INTRA EPITH ELIAL LESIO N (LSIL ). Not Available [facility] ([facility]) [address] [facility], [place], [address], 12/17/2023 11:14:46 12/11/19 24 12/17/2023 IGP, APTIM A HPV, RFX 16/18 ,45 recommendati on: Jeimy guajardo abnormal Sugge st follo w up as clini lazaro appro priat e. Not Available [facility] ([facility]) [address] [facility], [place], [address], 12/17/2023 11:14:46 12/11/19 24 12/17/2023 IGP, APTIM A HPV, RFX 16/18 ,45 specimen adequacy: Jeimy guajardo Satis facto ry for evalu ation . Endoc ervic al and/o r squam ous metap lasti c cells (endo cervi kandis compo nent) are prese nt. Not Available [facility] ([facility]) [address] [facility], [place], [address], 12/17/2023 11:14:46 12/11/19 24 12/17/2023 IGP, APTIM A HPV, RFX 16/18 ,45 clinician provided ICD10: Jeimy guajardo Z72.5 1 N91.2 Z87.4 2 Not Available [facility] ([facility]) [address] [facility], [place], [address], 12/17/2023 11:14:46 12/11/19 24 12/17/2023 IGP, APTIM A HPV, RFX 16/18 ,45 performed by: Regis Gray (ASCP ) Not Available [facility] ([facility]) [address] [place], [address], 12/17/2023 11:14:46 12/11/19 24 12/17/2023 IGP, APTIM A HPV, RFX 16/18 ,45 electronical ly signed by: Jeimy mg MD, Patho logis t Not Available [facility] ([facility]) [address] [place], [address], 12/17/2023 11:14:46 12/11/19 24 12/17/2023 IGP, APTIM A HPV, RFX 16/18 ,45 . . Not Available [facility] ([facility]) [address] [place], [address], 12/17/2023 11:14:46 12/11/19 24 12/17/2023 IGP, APTIM A HPV, RFX 16/18 ,45 pathologist provided ICD10: Jeimy guajardo R87.6 12 Not Available [facility] ([facility]) [address] [facility], [place], [address], 12/17/2023 11:14:46 12/11/19 24 12/17/2023 IGP, APTIM A HPV, RFX 16/18 ,45 note: Jeimy guajardo The Pap smear is a scree aditi test desig miri to aid in the detec tion of gina ligna nt and malig nant condi tions of the uteri ne cervi x. It is not a diagn ostic proce dure and shoul d not be used as the sole means of detec ting cervi kandis cance r. Both false -posi tive and false -nega tive repor ts do occur . Not Available [facility] ([facility]) [address] [facility], [place], [address], 12/17/2023 11:14:46 12/11/19 24 12/17/2023 IGP, APTIM A HPV, RFX 16/18 ,45 test methodology: Jeimy guajardo This liqui d based ThinP rep(R ) pap test was scree miri with the use of an image guide ketan son Not Available [facility] ([facility]) [address] [place], [address], 12/17/2023 11:14:46 12/11/19 24 12/17/2023 IGP, APTIM A HPV, RFX 16/18 ,45 HPV genotype reflex Commen t Crite constantine not met, HPV Genot ype not perfo rmed. Not Available [facility] ([facility]) [address] [facility], [place], [address], 12/17/2023 11:14:46 12/11/19 24 12/12/2023 TESTO STERO NE,FR EE AND TOTAL testosterone 23 NG/dL 8-60 Not Available [facility] ([facility]) [address] [facility], [place], [address], 12/18/2023 07:15:46 12/11/19 24 12/17/2023 TESTO STERO NE,FR EE AND TOTAL free testosterone (direct) 1.4 pg/mL 0.0-4. 2 Not Available [facility] ([facility]) [address] [facility], [place], [address], 12/18/2023 07:15:46 12/11/19 24 12/12/2023 HCV ANTIB ELEANOR hep C virus Ab Non Reacti ve nonrea ctive HCV antib eleanor alone does not diffe renti ate betwe en previ ously resol debra infec tion and activ e infec tion. Equiv ocal and React kit HCV antib eleanor resul ts shoul d be follo wed up with an HCV RNA test to suppo rt the diagn osis of activ e HCV infec tion. Not Available [facility] ([facility]) [address] [facility], [place], [address], 12/18/2023 07:15:46 12/11/19 24 12/12/2023 HSV 1 AND 2 AB, IGG hsv 1 IgG, type spec <0.91 index 0.00-0 .90 Negat kit <0.91 Equiv ocal 0.91 - 1.09 Posit kit >1.09 Note: Negat kit indic ates no antib odies detec garima to HSV-1 . Equiv ocal may sugge st early infec tion. If clini lazaro appro priat e, retes t at later date. Posit kit indic ates antib odies detec garima to HSV-1 . Not Available [facility] ([facility]) [address] [facility], [place], [address], 12/18/2023 07:15:47 12/11/19 24 12/12/2023 HSV 1 AND 2 AB, IGG hsv 2 IgG, type spec 3.36 index 0.00-0 .90 above high normal Negat kit <0.91 Equiv ocal 0.91 - 1.09 Posit kit >1.09 HSV-2 Antib eleanor Inter preta tion: Curre nt guide lines and recom menda tions do not recom mend routi ne scree aditi for HSV-2 in asymp tomat ic indiv idual s, inclu ding those that are pregn ant. A negat kit antib eleanor resul t indic ates no detec table antib odies to HSV-2 were found . If recen t expos ure is suspe cted, retes t in 4 to 6 weeks . Equiv ocal sampl es shoul d be retes garima in 4 to 6 weeks . A posit kit resul t indic ates the prese nce of detec table IgG antib eleanor to HSV-2 . FALSE POSIT KIT RESUL TS MAY OCCUR . Repea t testi ng, or testi ng by a diffe rent metho d, may be indic ated in some setti ngs (e.g. patie nts with low likel ihood of HSV infec tion) . If clini lazaro appro priat e, retes t 4 to 6 weeks later . HSV-2 IgG antib eleanor testi ng resul ts shoul d be clini lazaro corre lated . Not Available [facility] ([facility]) [address] [facility], [place], [address], 12/18/2023 07:15:47 12/11/19 24 12/12/2023 TSH+F REE T4 TSH 4.010 uIU/m L 0.450- 4.500 Not Available [facility] ([facility]) [address] [place], [address], 12/18/2023 07:15:47 12/11/1912/12/2023 TSH+F REE T4 T4,free(dire ct) 1.15 NG/dL 0.82-1 .77 Not Available [facility] ([facility]) [address] [place], [address], 12/18/2023 07:15:47 12/11/19 24 12/12/2023 HEMOG LOBIN A1C hemoglobin A1C 5.7 % 4.8-5. 6 above high normal Predi abete s: 5.7 - 6.4 Diabe lazara: >6.4 Glyce deandra contr ol for adult s with diabe lazara: <7.0 Not Available [facility] ([facility]) [address] [place], [address], 12/18/2023 07:15:48 12/11/19 24 12/12/2023 PROGE STERO NE progesterone 0.2 NG/mL Folli cular phase 0.1 - 0.9 Lutea l phase 1.8 - 23.9 Ovula tion phase 0.1 - 12.0 Pregn ant First trime ster 11.0 - 44.3 Secon d trime ster 25.4 - 83.3 Third trime ster 58.7 - 214.0 Postm enopa usal 0.0 - 0.1 Not Available [facility] ([facility]) [address] [place], [address], 12/18/2023 07:15:48 12/11/19 24 12/12/2023 HCG,B ETA SUBUN IT, QNT HCG,beta subunit,qnt, serum <1 mIU/m L Femal e (Non- pregn ant) 0 - 5 (Post menop ausal ) 0 - 8 Femal e (Preg nant) Weeks of Gesta tion 3 6 - 71 4 10 - 750 5 557 - 4419 6 317 - 11875 7 1450 -5280 63 8 07921 -8635 71 9 02846 -5262 10 10 53607 -7543 77 12 44194 -2106 12 14 49006 - 34199 15 76802 - 96383 16 0897 - 88561 17 5105 - 26978 18 3259 - 76425 Radha ECLIA metho dolog y Not Available [facility] ([facility]) [address] [place], [address], 12/18/2023 07:15:49 12/11/19 24 12/12/2023 PROLA CTIN prolactin 168.0 NG/mL 4.8-33 .4 above high normal Not Available [facility] ([facility]) [address] [place], [address], 12/18/2023 07:15:49 12/11/19 24 12/12/2023 ESTRA DIOL estradiol 18.5 pg/mL Adult Femal e Range Folli cular phase 12.5 - 166.0 Ovula tion phase 85.8 - 498.0 Lutea l phase 43.8 - 211.0 Postm enopa usal <6.0 - 54.7 Pregn aroldo 1st trime ster 215.0 - >4300 .0 Radha ECLIA metho dolog y Not Available [facility] ([facility]) [address] [place], [address], 12/18/2023 07:15:50 12/11/19 24 12/12/2023 CBC WITH DIFFE RENTI AL/PL ATELE T WBC 6.8 x10e3 /uL 3.4-10 .8 Not Available [facility] ([facility]) [address] [place], [address], 12/18/2023 07:15:50 12/11/19 24 12/12/2023 CBC WITH DIFFE RENTI AL/PL ATELE T RBC 4.43 x10e6 /uL 3.77-5 .28 Not Available [facility] ([facility]) [address] [place], [address], 12/18/2023 07:15:50 12/11/19 24 12/12/2023 CBC WITH DIFFE RENTI AL/PL ATELE T hemoglobin 13.8 g/dL 11.1-1 5.9 Not Available [facility] ([facility]) [address] [facility], [place], [address], 12/18/2023 07:15:50 12/11/19 24 12/12/2023 CBC WITH DIFFE RENTI AL/PL ATELE T hematocrit 41.2 % 34.0-4 6.6 Not Available [facility] ([facility]) [address] [facility], [place], [address], 12/18/2023 07:15:50 12/11/1912/12/2023 CBC WITH DIFFE RENTI AL/PL ATELE T MCV 93 fL 79-97 Not Available [facility] ([facility]) [address] [facility], [place], [address], 12/18/2023 07:15:50 12/11/19 24 12/12/2023 CBC WITH DIFFE RENTI AL/PL ATELE T MCH 31.2 pg 26.6-3 3.0 Not Available [facility] ([facility]) [address] [facility], [place], [address], 12/18/2023 07:15:50 12/11/19 24 12/12/2023 CBC WITH DIFFE RENTI AL/PL ATELE T MCHC 33.5 g/dL 31.5-3 5.7 Not Available [facility] ([facility]) [address] [place], [address], 12/18/2023 07:15:50 12/11/19 24 12/12/2023 CBC WITH DIFFE RENTI AL/PL ATELE T RDW 12.6 % 11.7-1 5.4 Not Available [facility] ([facility]) [address] [place], [address], 12/18/2023 07:15:50 12/11/19 24 12/12/2023 CBC WITH DIFFE RENTI AL/PL ATELE T platelets 204 x10e3 /uL 150-45 0 Not Available [facility] ([facility]) [address] [facility], [place], [address], 12/18/2023 07:15:50 12/11/19 24 12/12/2023 CBC WITH DIFFE RENTI AL/PL ATELE T neutrophils 61 % notest ab. Not Available [facility] ([facility]) [address] [facility], [place], [address], 12/18/2023 07:15:50 12/11/19 24 12/12/2023 CBC WITH DIFFE RENTI AL/PL ATELE T lymphs 18 % notest ab. Not Available [facility] ([facility]) [address] [facility], [place], [address], 12/18/2023 07:15:50 12/11/19 24 12/12/2023 CBC WITH DIFFE RENTI AL/PL ATELE T monocytes 15 % notest ab. Not Available [facility] ([facility]) [address] [facility], [place], [address], 12/18/2023 07:15:50 12/11/19 24 12/12/2023 CBC WITH DIFFE RENTI AL/PL ATELE T eos 4 % notest ab. Not Available [facility] ([facility]) [address] [facility], [place], [address], 12/18/2023 07:15:50 12/11/19 24 12/12/2023 CBC WITH DIFFE RENTI AL/PL ATELE T basos 1 % notest ab. Not Available [facility] ([facility]) [address] [facility], [place], [address], 12/18/2023 07:15:50 12/11/19 24 12/12/2023 CBC WITH DIFFE RENTI AL/PL ATELE T neutrophils (absolute) 4.2 x10e3 /uL 1.4-7. 0 Not Available [facility] ([facility]) [address] [facility], [place], [address], 12/18/2023 07:15:50 12/11/19 24 12/12/2023 CBC WITH DIFFE RENTI AL/PL ATELE T lymphs (absolute) 1.3 x10e3 /uL 0.7-3. 1 Not Available [facility] ([facility]) [address] [facility], [place], [address], 12/18/2023 07:15:50 12/11/19 24 12/12/2023 CBC WITH DIFFE RENTI AL/PL ATELE T monocytes(ab solute) 1.0 x10e3 /uL 0.1-0. 9 above high normal Not Available [facility] ([facility]) [address] [facility], [place], [address], 12/18/2023 07:15:50 12/11/19 24 12/12/2023 CBC WITH DIFFE RENTI AL/PL ATELE T eos (absolute) 0.3 x10e3 /uL 0.0-0. 4 Not Available [facility] ([facility]) [address] [facility], [place], [address], 12/18/2023 07:15:50 12/11/19 24 12/12/2023 CBC WITH DIFFE RENTI AL/PL ATELE T baso (absolute) 0.1 x10e3 /uL 0.0-0. 2 Not Available [facility] ([facility]) [address] [facility], [place], [address], 12/18/2023 07:15:50 12/11/19 24 12/12/2023 CBC WITH DIFFE RENTI AL/PL ATELE T immature granulocytes 1 % notest ab. Not Available [facility] ([facility]) [address] [facility], [place], [address], 12/18/2023 07:15:50 12/11/19 24 12/12/2023 CBC WITH DIFFE RENTI AL/PL ATELE T immature grans (abs) 0.1 x10e3 /uL 0.0-0. 1 Not Available [facility] ([facility]) [address] [place], [address], 12/18/2023 07:15:50 12/11/19 24 12/12/2023 HBSAG SCREE N HBsAg screen Negati ve negati ve Not Available [facility] ([facility]) [address] [place], [address], 12/18/2023 07:15:51 12/11/19 24 12/12/2023 RPR, RFX QN RPR/C ONFIR M TP RPR Non Reacti ve nonrea ctive Not Available [facility] ([facility]) [address] [place], [address], 12/18/2023 07:15:52 12/11/19 24 12/12/2023 FSH AND LH LH 8.2 mIU/m L Adult Femal e Range Folli cular phase 2.4 - 12.6 Ovula tion phase 14.0 - 95.6 Lutea l phase 1.0 - 11.4 Postm enopa usal 7.7 - 58.5 Not Available [facility] ([facility]) [address] [place], [address], 12/18/2023 07:15:52 12/11/19 24 12/12/2023 FSH AND LH FSH 7.0 mIU/m L Adult Femal e Range Folli cular phase 3.5 - 12.5 Ovula tion phase 4.7 - 21.5 Lutea l phase 1.7 - 7.7 Postm enopa usal 25.8 - 134.8 Not Available [facility] ([facility]) [address] [place], [address], 12/18/2023 07:15:52 12/11/19 24 12/12/2023 HIV AB/P2 4 AG WITH REFLE X HIV Ab/P24 Ag screen Non Reacti ve nonrea ctive HIV Negat kit HIV-1 /HIV- 2 antib odies and HIV-1 p24 antig en were NOT detec garima. There is no labor atory evide nce of HIV infec tion. Not Available [facility] ([facility]) [address] [facility], [place], [address], 12/18/2023 07:15:53 12/11/19 24 12/21/2023 NUA B VAGIN ITIS PLUS (VG+) trich vag by GURJIT Negati ve negati ve Not Available [facility] ([facility]) [address] [place], [address], 12/22/2023 11:08:51 12/11/19 24 12/21/2023 NUA B VAGIN ITIS PLUS (VG+) chlamydia trachomatis, GURJIT Negati ve negati ve Not Available [facility] ([facility]) [address] [place], [address], 12/22/2023 11:08:51 12/11/19 24 12/21/2023 NUA B VAGIN ITIS PLUS (VG+) neisseria gonorrhoeae, GURJIT Negati ve negati ve Not Available [facility] ([facility]) [address] [place], [address], 12/22/2023 11:08:51 12/11/19 24 12/22/2023 NUA B VAGIN ITIS PLUS (VG+) atopobium vaginae Low - 0 score Not Available [facility] ([facility]) [address] [place], [address], 12/22/2023 11:08:51 12/11/19 24 12/22/2023 NUA B VAGIN ITIS PLUS (VG+) bvab 2 Low - 0 score Not Available [facility] ([facility]) [address] [place], [address], 12/22/2023 11:08:51 12/11/19 24 12/22/2023 NUSWA B VAGIN ITIS PLUS (VG+) megasphaera 1 Low - 0 score Calcu late total score by tamara anaya the 3 indiv idual bacte rial vagin osis (BV) marke r score s toget her. Total score is inter prete d as follo ws: Total score 0-1: Indic ates the absen ce of BV. Total score 2: Indet ermin ate for BV. Addit ional clini kandis data shoul d be evalu ated to estab jaqueline a diagn osis. Total score 3-6: Indic ates the prese nce of BV. Not Available [facility] ([facility]) [address] [place], [address], 12/22/2023 11:08:51 12/11/19 24 12/22/2023 NUSWA B VAGIN ITIS PLUS (VG+) heather albicans, GURJIT Negati ve negati ve Not Available [facility] ([facility]) [address] [place], [address], 12/22/2023 11:08:51 12/11/19 24 12/22/2023 NUA B VAGIN ITIS PLUS (VG+) heather glabrata, GURJIT Negati ve negati ve Not Available [facility] ([facility]) [address] [place], [address], 12/22/2023 11:08:51 12/25/19 24 12/27/2023 URINE CULTU RE, ROUTI NE urine culture, routine FINAL REPORT Not Available [facility] ([facility]) [address] [place], [address], 12/27/2023 07:14:09 12/25/19 24 12/27/2023 URINE CULTU RE, ROUTI NE result 1 COMMEN T Cultu re shows less than 10,00 0 colon y formi ng units of bacte constantine per castro liter of urine . This colon y count is not gener ally consi dered to be clini lazaro signi mimi t. Not Available [facility] ([facility]) [address] [facility], [place], [address], 12/27/2023 07:14:09 12/25/19 24 12/31/2023 PATHO LOGY REPOR T . Commen t Mater ial submi tted: . PART A: endoc ervix - ENDOC ERVIC AL CURET TAGE PART B: cervi x - CERVI KANDIS BIOPS Y 3:00. Modif iers: 3:00 PART C: cervi x - CERVI KANDIS BIOPS Y 6:00. Modif iers: 6:00 PART D: cervi x - CERVI KANDIS BIOPS Y 9:00. Modif iers: 9:00 Not Available [facility] ([facility]) [address] [facility], [place], [address], 12/31/2023 16:17:41 12/25/19 24 12/31/2023 PATHO LOGY REPOR T . Commen t Clini gage provi ded ICD-1 0: R87.6 19 Not Available [facility] ([facility]) [address] [facility], [place], [address], 12/31/2023 16:17:41 12/25/19 24 12/31/2023 PATHO LOGY REPOR T . Commen t Diagn osis: A: ENDOC ERVIC AL BIOPS Y: VERY SMALL DETAC HED FRAGM ENTS OF HIGH- GRADE DYSPL ASTIC SQUAM OUS MUCOS A (SHIVA- 2). HIGH- GRADE SQUAM OUS INTRA EPITH ELIAL LESIO N CONFI RMED BY POSIT KIT p16 IMMUN OSTAI N. 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 - CHRON IC CERVI CITIS . B: CERVI X BIOPS Y 3 O'JEANNA CK: - FRAGM ENTED BIOPS Y OF DYSPL ASTIC SQUAM OUS MUCOS A, AT LEAST LOW GRADE DYSPL KATELYN (SHIVA- I). C: CERVI X BIOPS Y 6 O'JEANNA CK: - BENIG N SQUAM OUS MUCOS A. - THE TRANS FORMA TION ZONE IS NOT PRESE NT. D: CERVI X BIOPS Y 9 O'JEANNA CK: - BENIG N SQUAM OUS MUCOS A. - THE TRANS FORMA TION ZONE IS NOT PRESE NT. NOTE: SOME TESTS USE BALDO TIC SPECI FIC REAGE NTS (ASR' S). THIS TEST WAS DEVEL OPED AND ITS PERFO RMANC E KRISTIE CERIS TICS DETER MINED BY [facility]. IT HAS NOT BEEN CLEAR ED OR APPRO DEBRA BY THE US FOOD AND DRUG ADMIN ISTRA TION. THE FDA HAS DETER MINED THAT SUCH CLEAR ANCE OR APPRO MUSA IS NOT NECES MERCEDES. THIS TEST IS USED FOR CLINI KANDIS PURPO SES. IT SHOUL D NOT BE REGAR DED INVES TIGAT IONAL OR FOR RESEA RCH. IHC TECHN ICAL PERFO RMING LOCAT ION IS [facility], [address] [place], [place]. BXS 12/30 1026 Local Not Available [facility] ([facility]) [address] [facility], [place], [address], 12/31/2023 16:17:41 12/25/1912/31/2023 PATHO SANDOR guajardo Elect robert guerra d: . Gigi mg MD, Patho logis t Not Available [facility] ([facility]) [address] [facility], [place], [address], 12/31/2023 16:17:41 05/15/20 24 12/31/2023 PATHO LOGY REPOR T . Commen t Gross descr iptio n: . 4 Conta iners , forma jhon-f illed , label ed with patie nt ident ifica tion. Part A: ENDOC ERVIC AL CURET TAGE: MULTI PLE FRAGM ENT(S ) OF MUCUS AND SOFT MATER IAL MEASU RING 1.0 X 0.3 X 0.2 CM IN AGGRE GATE. FILTE RED AND SUBMI TTED IN CASSE TTE(S ) A1. THE SPECI MEN MAY NOT SURVI VE PROCE SSING . Part B: CERVI KANDIS BIOPS Y 3:00: MULTI PLE FRAGM ENT(S ) OF SOFT MATER IAL, BLOOD , AND MUCUS MEASU RING 1.2 X 0.6 X 0.2 CM IN AGGRE GATE. FILTE RED AND SUBMI TTED IN CASSE TTE(S ) B1. THE SPECI MEN MAY NOT SURVI VE PROCE SSING . Part C: CERVI KANDIS BIOPS Y 6:00: MULTI PLE FRAGM ENT(S ) OF MUCUS AND SOFT MATER IAL MEASU RING 0.5 X 0.5 X 0.2 CM IN AGGRE GATE. FILTE RED AND SUBMI TTED IN CASSE TTE(S ) C1. Part D: CERVI KANDIS BIOPS Y 9:00: 1 FRAGM ENT(S ) OF MAHONEY MUCOI D TISSU E MEASU RING 0.4 X 0.4 X 0.3 CM. SUBMI TTED RECEI DEBRA IN CASSE TTE(S ) D1. YANI/Luis ZIMMERMAN 12/25 1005 Local Not Available [facility] ([facility]) [address] [place], [address], 12/31/2023 16:17:41 12/25/19 24 12/31/2023 PATHO LOGY REPOR T . Commen t Patho logis t provi ded ICD-1 0: N87.1 Not Available [facility] ([facility]) [address] [facility], [place], [address], 12/31/2023 16:17:41 05/15/12/31/2023 PATHO LOGY HEBER Svitlana Mynor Munson t CPT . 06060 1, 54562 2, 74925 3, 56832 4, W2006 1 Not Available [facility] ([facility]) [address] [facility], [place], [address], 12/31/2023 16:17:41 12/25/19 24 12/25/2023 pregn aroldo test, urine HCG negati ve Not Available In-Office Order Internal Use Only DO Not Attach Compendium DO Not Attach Compendium, Do Not Delete/merge, [id number] 12/25/2023 09:54:50 01/17/20 24 01/15/2024 US, pelvi s, trans abdom inal + trans vagin al No observ ation record ed. [email or web address] Scheduling 1 [facility] [place], [address], 01/21/2024 14:17:39 Result Notes None recorded. Problems Name Problem SNOMED Code Status Onset Date Resolution Date Notes Provider Name and Address Organization Details Recorded Time Mixed anxiety and depressive disorder 995268507 Active Beckie salcedo, [place] - [facility] 6 10:26:16 Tobacco user 110494489 Active Beckie Gutierrez null, [place] - [facility] 6 10:26:16 Endometrios is of uterus 55109979 Active Beckie Gutierrez [place], [place] - [facility] 6 10:26:16 Skin - benign mole and nevus Active Beckie Gutierrez null, [place] - [facility] 6 10:26:16 Multiple joint pain 00941578 Completed 09/24/2016 Kimi Fitzgerald PA-C Attn: Gabi anaya,[address] [facility], [place], [address], [place] - [facility] 7 12:39:03 Otalgia 03582411 Active 2016 Kimi Fitzgerald PA-C Attn: Gabi g,[address] [facility], [place], [address], [place] - [facility] 7 12:38:47 Knee pain Active 2016 Kimi Fitzgerald PA-C Attn: Gabi anaya,[address] [facility], [place], [address], [facility] - [facility] 7 12:38:53 Depressive disorder 34335777 Active 2016 Kimi Fitzgerald PA-C Attn: Gabi anaya,[address] [facility], [place], [address], [facility] - SIF 7 12:38:58 Problem Notes None recorded. Procedures Surgical History Date Name Laterality Status Provider Name and Address Organization Details Recorded Time 4 Colposcopy completed TALIA Rivas Attn: Accounting,[address] [facility], [place], [address], [facility] 12/25/2023 11:17:27 4 colposcopy completed Florina Brar MA [facility] 12/25/2023 10:40:20 4 Date of Last Pap Smear completed Alka Donaldson [facility] 12/11/2023 14:26:53 8 Tubal Ligation completed ANALI Agee [facility] 02/04/2018 11:00:18 7 Caesarean Section completed Kimi Fitzgerald PA-C Attn: Accounting,[address] [facility], [place], [address], [facility] 05/16/2017 12:35:56 5 Other completed Kimi Fitzgerald PA-C Attn: Accounting,[address] [facility], [place], [address], [facility] 09/24/2016 09:30:49 Imaging Results Imaging Date Name Status LastModified by Organization Details LastModified Time 01/15/2024 US, pelvis, transabdominal + transvaginal completed [email or web address] Sched[facility] [address] [place], [address], 01/21/2024 14:17:39 Procedure Notes None recorded. Medical Equipment None Reported. Allergies Allergen ID Allergen Name Allergen Category Reaction Reaction Severity Criticality Documentation Date Start Date Code Code System Note Provider Name and Address Organization Details Recorded Time 456040 tramadol medicatio n itching Not available Not available 02/04/2018 30730 RxNorm Not Available Not Available Not Available 75217 Motrin medicatio n hives Not available Not available 09/12/201543745 8 RxNorm Not Available Not Available Not Available Medications Name Sig Start Date Stop Date Status Note LastModified by Organization Details LastModified Time antacid lidocaine wal-dryl TAKE 5 TO 10 ML BY MOUTH FOUR TIMES DAILY NEEDED FOR MOUTH/THR OAT DISCOMFOR T 08/15 completed Not Available Not Available Not Available quetiapine 25 mg tablet active Not Available Not Available Not Available cyclobenza asia 10 mg tablet TAKE 1 TABLET BY MOUTH THREE TIMES DAILY FOR UP TO 14 DAYS NEEDED FOR PAIN 12/10 completed Not Available Not Available Not Available amoxicilli n 500 mg capsule TAKE 1 CAPSULE BY MOUTH THREE TIMES DAILY FOR 10 DAYS 08/15 completed Not Available Not Available Not Available medroxypro gesterone 10 mg tablet 02/04 completed Not Available Not Available Not Available pilocarpin e 5 mg tablet TAKE 1 TABLET BY MOUTH TWICE DAILY active Not Available Not Available No t Available nystatin 100,000 unit/mL oral suspension SWISH AND SWALLOW 5 ML BY MOUTH FOUR TIMES DAILY FOR 14 DAYS 08/15 completed Not Available Not Available Not Available venlafaxin e ER 37.5 mg capsule,ex tended release 24 hr TAKE 1 CAPSULE BY MOUTH EVERY MORNING 08/15 completed Not Available Not Available Not Available prednisone 10 mg tablet 02/04 completed Not Available Not Available Not Available venlafaxin e ER 75 mg capsule,ex tended release 24 hr TAKE 1 CAPSULE BY MOUTH EVERY DAY WITH FOOD active Not Available Not Available No t Available nicotine 14 mg/24 hr daily transderma l patch Apply 1 patch every day by transderm al route. 08/15 completed Not Available Not Available Not Available ipratropiu m 0.5 mg-albuter ol 3 mg (2.5 mg base)/3 mL nebulizati on soln 07/14 completed Not Available Not Available Not Available quetiapine 300 mg tablet TAKE 1 TABLET BY MOUTH EVERY DAY AT BEDTIME 12/10 completed Not Available Not Available Not Available tizanidine 2 mg tablet take 1-2 tablets twice a day as need for muscle spasms 08/15 completed Not Available Not Available Not Available clindamyci n HCl 300 mg capsule TAKE 1 CAPSULE BY MOUTH EVERY 8 HOURS FOR 10 DAYS 12/10 completed Not Available Not Available Not Available trazodone 50 mg tablet TAKE 1 TABLET BY MOUTH AT BEDTIME 08/15 completed Not Available Not Available Not Available polyethyle ne glycol 3350 17 gram oral powder packet 02/04 completed Not Available Not Available Not Available cetirizine 10 mg tablet 08/15 completed Not Available Not Available Not Available azithromyc in 250 mg tablet TAKE 2 TABLETS BY MOUTH FOR 1 DAY THEN TAKE 1 TABLET BY MOUTH DAILY FOR 4 DAYS 07/31 completed Not Available Not Available Not Available ibuprofen 800 mg tablet 09/24 completed Not Available Not Available Not Available Lidocaine Viscous 2 % mucosal solution 08/15 completed Not Available Not Available Not Available fluconazol e 150 mg tablet 09/24 completed Not Available Not Available Not Available citalopram 10 mg tablet take one tablet daily x 5 days then increase to 2 tablets daily 05/16 completed Not Available Not Available Not Available hydrocodon e 5 mg-acetami nophen 325 mg tablet TAKE 1 TABLET BY MOUTH EVERY 8 HOURS NEEDED FOR MODERATE TO SEVERE PAIN 12/10 completed Not Available Not Available Not Available meloxicam 15 mg tablet TAKE 1 TABLET BY MOUTH EVERY DAY WITH MEALS 07/14 completed Not Available Not Available Not Available naltrexone 50 mg tablet TAKE 1 TABLET BY MOUTH ONCE DAILY 08/15 completed Not Available Not Available Not Available prednisone 20 mg tablet TAKE 1 TABLET BY MOUTH DAILY 07/31 completed Not Available Not Available Not Available dextroamph etamine-am phetamine 10 mg tablet TAKE 1 TABLET BY MOUTH TWICE DAILY 12/10 completed Not Available Not Available Not Available quetiapine 200 mg tablet TAKE 1 TABLET BY MOUTH EVERY DAY AT BEDTIME FOR 7 DAYS 08/15 completed Not Available Not Available Not Available Doc-Q-Lace 100 mg capsule 02/04 completed Not Available Not Available Not Available venlafaxin e ER 150 mg capsule,ex tended release 24 hr TAKE 1 CAPSULE BY MOUTH EVERY DAY WITH FOOD active Not Available Not Available No t Available hydroxyzin e pamoate 50 mg capsule TAKE 1 CAPSULE BY MOUTH EVERY 6 HOURS FOR 7 DAYS NEEDED 08/15 completed Not Available Not Available Not Available metronidaz ole 500 mg tablet 09/24 completed Not Available Not Available Not Available hydroxyzin e HCl 50 mg tablet TAKE 1 TABLET BY MOUTH EVERY 4 HOURS NEEDED 08/15 completed Not Available Not Available Not Available acetaminop hen 300 mg-codeine 30 mg tablet TAKE 1 TABLET BY MOUTH EVERY 4-6 HOURS NEEDED DENTAL FOR PAIN 08/15 completed Not Available Not Available Not Available tramadol 50 mg tablet TAKE 1 TABLET BY MOUTH TWICE DAILY NEEDED FOR MODERATE TO SEVERE PAIN 08/15 completed Not Available Not Available Not Available quetiapine 100 mg tablet TAKE 1 TABLET BY MOUTH EVERY NIGHT AT BEDTIME 12/10 completed Not Available Not Available Not Available ketorolac 10 mg tablet TAKE 1 TABLET BY MOUTH EVERY 6 HOURS NEEDED FOR PAIN 07/31 completed Not Available Not Available Not Available pantoprazo le 20 mg tablet,del ayed release TAKE 1 TABLET BY MOUTH DAILY 08/15 completed Not Available Not Available Not Available dextroamph etamine-am phetamine 30 mg tablet active Not Available Not Available Not Available oxycodone- acetaminop hen 5 mg-325 mg tablet 05/06 completed Not Available Not Available Not Available amoxicilli n 875 mg tablet 08/15 completed Not Available Not Available Not Available alprazolam 0.25 mg tablet Take 1 tablet twice a day by oral route as needed. 07/14 completed Not Available Not Available Not Available citalopram 20 mg tablet TAKE 1 TABLET BY MOUTH EVERY DAYNEE D APPOINTME NT 08/15 completed Not Available Not Available Not Available trazodone 100 mg tablet TAKE 2 TO 3 TABLETS BY MOUTH EVERY DAY AT NIGHT NEEDED active Not Available Not Available No t Available ferrous sulfate 325 mg (65 mg iron) tablet 06/17 completed Not Available Not Available Not Available triamcinol one acetonide 0.1 % topical ointment APPLY THIN LAYER TOPICALLY TO THE AFFECTED AREA TWICE DAILY UNTIL HEALED 08/15 completed Not Available Not Available Not Available promethazi ne 25 mg tablet 02/04 completed Not Available Not Available Not Available orphenadri ne citrate ER 100 mg tablet,ext ended release 03/18 completed Not Available Not Available Not Available nicotine 21 mg/24 hr daily transderma l patch Apply 1 patch every day by transderm al route. 08/15 completed Not Available Not Available Not Available dextroamph etamine-am phetamine 15 mg tablet 12/10 completed Not Available Not Available Not Available fluoxetine 10 mg capsule Take 1 capsule every day by oral route. 09/24 completed angry Not Available Not Available Not Available venlafaxin e 50 mg tablet TAKE 1 TABLET BY MOUTH TWICE DAILY 08/15 completed Not Available Not Available Not Available gabapentin 300 mg capsule TAKE 1 CAPSULE BY MOUTH THREE TIMES DAILY active Not Available Not Available No t Available buspirone 7.5 mg tablet TAKE 1 TABLET BY MOUTH TWICE DAILY 12/10 completed Not Available Not Available Not Available hydrocorti sone 2.5 % topical cream APPLY A THIN LAYER TO THE AFFECTED AREA(S) BY TOPICAL ROUTE 2 TIMES PER DAY 05/16 completed Not Available Not Available Not Available dextroamph etamine-am phetamine ER 10 mg 24hr capsule,ex tend release TAKE 1 CAPSULE BY MOUTH EVERY DAY IN THE MORNING 12/10 completed Not Available Not Available Not Available hydroxyzin e HCl 25 mg tablet TAKE 1 TO 2 TABLETS BY MOUTH EVERY 4 HOURS NEEDED 08/15 completed Not Available Not Available Not Available mirtazapin e 15 mg tablet active Not Available Not Available Not Available diazepam 10 mg tablet TAKE 1 TABLET BY MOUTH THE NIGHT BEFORE AND 1 TABLET 1 HOUR BEFORE PROCEDURE 08/15 completed Not Available Not Available Not Available Cheratussi n AC 10 mg-100 mg/5 mL oral liquid active Not Available Not Available Not Available methylpred nisolone 4 mg tablets in a dose pack FOLLOW PACKAGE DIRECTION S 01/21 completed Not Available Not Available Not Available albuterol sulfate HFA 90 mcg/actuat ion aerosol inhaler INHALE 2 PUFFS BY MOUTH FOUR TIMES DAILY NEEDED FOR SHORTNESS OF BREATH OR WHEEZING active Not Available Not Available No t Available hydroxyzin e HCl 10 mg tablet Take 1 tablet every 6 hours by oral route as needed. 02/04 completed Not Available Not Available Not Available ondansetro n 4 mg disintegra ting tablet active Not Available Not Available Not Available fluticason e propionate 50 mcg/actuat ion nasal spray,susp ension 02/04 completed Not Available Not Available Not Available medroxypro gesterone 150 mg/mL intramuscu lar suspension 02/04 completed Not Available Not Available Not Available naproxen 500 mg tablet TAKE 1 TABLET BY MOUTH TWICE DAILY NEEDED FOR MODERATE TO SEVERE PAIN 12/10 completed Not Available Not Available Not Available metoclopra mide 10 mg tablet 02/04 completed Not Available Not Available Not Available amoxicilli n 875 mg-potassi um clavulanat e 125 mg tablet TAKE 1 TABLET BY MOUTH EVERY 12 HOURS 07/31 completed Not Available Not Available Not Available olanzapine 5 mg disintegra ting tablet DISSOLVE 1/2 TO 1 TABLET ON THE TONGUE EVERY DAY active Not Available Not Available No t Available neomycin-p olymyxin-h ydrocort 3.5 mg-10,000 unit/mL-1 % ear drops,susp 09/24 completed Not Available Not Available Not Available dextroamph etamine-am phetamine ER 5 mg 24hr capsule,ex tend release TAKE ONE CAPSULE BY MOUTH ONCE A DAY DIRECTED 08/15 completed Not Available Not Available Not Available Adderall XR 15 mg capsule,ex tended release Take 1 capsule every day by oral route. 12/10 completed Not Available Not Available Not Available medroxypro gesterone 150 mg/mL intramuscu lar syringe 02/04 completed Not Available Not Available Not Available cyclobenza asia 5 mg tablet TAKE 1 TABLET BY MOUTH THREE TIMES DAILY NEEDED FOR MUSCLE SPASMS active Not Available Not Available No t Available aripiprazo le 5 mg tablet TAKE 1 TABLET BY MOUTH EVERY DAY 08/15 completed Not Available Not Available Not Available ciprofloxa shiva 0.3 %-dexameth asone 0.1 % ear drops,susp ension INSTILL 4 DROPS INTO LEFT EAR EVERY 12 HOURS NEEDED FOR OTITIS EXTERNA FOR 7 DAYS 08/15 completed Not Available Not Available Not Available metoprolol tartrate 25 mg tablet Take 1 tablet twice a day by oral route. 02/04 completed Not Available Not Available Not Available 02/04 completed Not Available Not Available Not Available aripiprazo le 2 mg tablet TAKE 1 TABLET BY MOUTH EVERY DAY FOR 7 DAYS 08/15 completed Not Available Not Available Not Available quetiapine 50 mg tablet TAKE 1 TABLET BY MOUTH TWICE DAILY 12/10 completed Not Available Not Available Not Available paliperido ne ER 6 mg tablet,ext ended release 24 hr TAKE 1 TABLET BY MOUTH EVERY DAY IN THE MORNING 01/21 completed Not Available Not Available Not Available quetiapine ER 300 mg tablet,ext ended release 24 hr TAKE 1 TABLET BY MOUTH AT BEDTIME 08/15 completed Not Available Not Available Not Available quetiapine ER 200 mg tablet,ext ended release 24 hr TAKE 1 TABLET BY MOUTH AT BEDTIME 08/15 completed Not Available Not Available Not Available quetiapine ER 150 mg tablet,ext ended release 24 hr 12/10 completed Not Available Not Available Not Available Invega Sustenna 156 mg/mL intramuscu lar syringe active Not Available Not Available Not Available Compact Space Chamber USE DIRECTED active Not Available Not Available No t Available Vitals Date Recorded Body height Body mass index (BMI) Body weight Heart rate Body temperature Respiratory rate Oxygen saturation Oxygen saturation in Arterial blood by Pulse oximetry Systolic blood pressure Diastolic blood pressure Provider Name and Address Organization Details Last Updated DateTime 3 154.94 cm 24 kg/m2 07813.5 8 g 97 /min 98 [degF] 16 /min 99 % 99 % 118 mm[Hg] 62 mm[Hg] Elvira Ariza [place] [facility] 3 10:11:31 Date Recorded Body height Body mass index (BMI) Body weight Heart rate Systolic blood pressure Diastolic blood pressure Provider Name and Address Organization Details Last Updated DateTime 3 154.94 cm 25.3 kg/m2 06202.9 8 g 80 /min 102 mm[Hg] 72 mm[Hg] Bethany Hough [place] [facility] 3 10:08:22 Date Recorded Body height Body mass index (BMI) Body weight Heart rate Respiratory rate Systolic blood pressure Diastolic blood pressure Provider Name and Address Organization Details Last Updated DateTime 4 154.94 cm 29.8 kg/m2 38172.1 9 g 80 /min 16 /min 113 mm[Hg] 77 mm[Hg] Alka Donaldson [facility] 4 14:21:28 Date Recorded Body height Body mass index (BMI) Body weight Heart rate Systolic blood pressure Diastolic blood pressure Provider Name and Address Organization Details Last Updated DateTime 4 154.94 cm 30.6 kg/m2 99998.9 6 g 99 /min 106 mm[Hg] 73 mm[Hg] Florina disla MA [facility] 4 09:48:07 Date Recorded Body height Body mass index (BMI) Body weight Systolic blood pressure Diastolic blood pressure Provider Name and Address Organization Details Last Updated DateTime 01/22/2024 154.94 cm 30.6 kg/m2 83287.11 g 104 mm[Hg] 68 mm[Hg] ANALI Hurley [facility] 4 10:30:52 Social History Question Answer Notes LastModified by Organizat ion Details LastModified Time Tobacco Smoking Status Current Every Day Smoker Carmen Arango MA [facility], [facility] 09/12/2015 09:55:37 What Is Your Level Of Alcohol Consumption? Moderate [email or web address] Information not available 09/12/2015 What Is Your Level Of Caffeine Consumption? Moderate Information not available 03/18/2018 How Much Tobacco Do You Chew? None Information not available 09/24/2016 In The 14 Days Before Symptom Onset, Have You Had Close Contact With A Laboratory-confi rmed COVID-19 While That Case Was Ill? No Information not available 12/11/2023 In The 14 Days Before Symptom Onset, Have You Had Close Contact With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
--- OUTSIDE RECORDS SUMMARY | 2024-11-18 09:35 | XMS_ITS | Clinical Summary ---
Author Organization [facility] Address [address] [place] [address] Phone Care Team Providers Care Sheet Metal Contractor Name Role Phone TESSA GATES Primary Care Provider [phone] DUSTY CUETO, DERIK Unavailable [phone] [...] 4:37PM By Tessa MCKEON ; [facility] Pantoprazole Sodium 20 MG Oral Tablet Delayed Release 03/10/2021 Provider: TESSA MCKEON Diagnosis: Gastro-esophagea l reflux dis with esophagitis, without bleed One tablet daily Last Documented On 1 4:37PM By Tessa MCKEON ; [facility] Medications Administered Includes: Administered Medications [...] Time Diagnosis NEW PATIENT VISIT [facility] 1 3:15PM 11:59PM Insurance Includes: Active Insurance Policies Plan Name Member ID Group # Subscriber Relationship Effect patience Dates - [facility] [id number] CADEN QURESHI Self Clinical Notes Includes: Clinical Notes from this encounter No Clinical Notes Recorded
--- OUTSIDE RECORDS SUMMARY | 2024-11-18 09:35 | XMS_ITS | Clinical Summary ---
Author Organization [facility] Address [address] [place] [address] Phone Care Team Providers Care Acupuncturist Name Role Phone TESSA GATES Primary Care Provider [phone] DUSTY CUETO, DERIK Unavailable [phone] Reason for Visit and Chief Complaint Visit [...] mg daily for anxiety and depression. Contact [facility] with referral for therapy. Lab orders sent, to be drawn this weekend at [facility] Follow up in the office in 1 month or otherwise as needed. - Last Documented On 03/10/2021 9:04PM ; [facility] Instructions to patient Intervention and counseling on cessation of tobacco use Last Documented On 3:33PM ; [facility] Lose weight Last Documented On 3:33PM ; [facility] Assessments Includes: Assessments from this encounter Findings - [R10.9 - Unspecified abdominal pain] Abdominal pain - Last Documented On 03/10/2021 9:04PM ; [facility] - [R53.83 - Other fatigue] Fatigue - Last Documented On 03/10/2021 9:04PM ; [facility] Instructions Includes: Instructions from this encounter Instructions to patient Intervention and counseling on cessation of tobacco use Last Documented On 1 3:33PM ; [facility] Lose weight Last Documented On 1 3:33PM ; [facility] Medical Equipment - Implanted Devices Includes: [...] capsule daily Pharmacy: [address] ([place], [id number] - Last Documented On 1 4:37PM By Tessa MCKEON ; [facility] Pantoprazole Sodium 20 MG Oral Tablet Delayed Release Provider: TESSA MCKEON 30 day supply: 30 tablet, 3 refills Diagnosis: Gastro-esophageal reflux dis with esophagitis, without bleed One tablet daily Pharmacy: [address] ([place] , [facility], [id number] - Last Documented On 1 4:37PM By Tessa MCKEON ; [facility] Medications Administered Includes: Administered Medications from [...] 1.7 Last Documented: On 03/10/2021 3:35PM ; [facility] Results Includes: Results discussed during this [...] sharp epigastric pain happening 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 She also reports a 15lb weight gain with increasing fatigue. She was recently admitted to [facility] for 1 week for mental health needs and addiction 4 weeks ago. Because it was a [facility] facility no pharmacy would fill her scripts upon discharge-she was on sertraline but stated it really never worked for her depression/anxiety and would like to try something else. Caden is a single mother with 3 kids- 1 boy age 8 and 2 girls age 6 and 3. 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 She lives in [place]. She likes to take her kids to the park for fun. Social History Description Last Updated Smoking status : Current everyday smoker 03/10/2021 Last Documented On 1 9:04PM ; [facility] No consumption of alcohol but has a hist ory 03/10/2021 Last Documented On 1 9:04PM ; [facility] Not using drugs but has a history 2020 Last Documented On 1 9:04PM ; [facility] Current smoker 03/10/2021 Last Documented On 1 9:04PM ; [facility] Cigarette smoking 1 pack(s)/day 15 years 03/10/2021 Last Documented On 1 9:04PM ; [facility] Exercise frequency Some 03/10/2021 Last Documented On 1 9:04PM ; [facility] Single 03/10/2021 Last Documented On 1 9:04PM ; [facility] Tobacco use 03/10/2021 Last Documented On 1 9:04PM ; [facility] Social history unchanged 03/10/2021 Last Documented On 9:04PM ; [facility] Procedures and Surgical History Includes: Procedures from this encounter Procedures Code Diagnosis Performing Provider Service L ocation Service Date intervention and counseling on cessation of tobacco use 4000F Last Documented On 1 3:33PM ; [facility] use of tobacco assessment performed 1000F Last Documented On 1 3:33PM ; [facility] patient screened for future fall risk 3288F Last Documented On 3:33PM ; [facility] standardized depression screening: negative for symptoms 3351F Last Documented On 3:33PM ; [facility] review of medications documented 1160F Last Documented On 1 3:33PM ; [facility] assessment of suicide risk performed Last Documented On 3:33PM ; [facility] screening for adult depression: impressi on and score twelve Last Documented On 1 3:42PM ; [facility] Clinical summary provided to patient Last Documented On 3:33PM ; [facility] PHQ-9: total score 12 Last Documented On 9:03PM ; [facility] Surgical History Last Updated History of tubal ligation May 2017 0 03/10/2021 Last Documented On 1 9:04PM ; [facility] Medical History Includes: Medical History addressed during this encounter Description Last Updated Born by section March 2017 Last Documented On 1 9:04PM ; [facility] No diagnosis of history of arthritis Last Documented On 1 9:04PM ; [facility] No diagnosis of history of cancer 2020 Last Documented On 9:04PM ; [facility] No diagnosis of history of chronic obstr uctive pulmonary disease 03/10/2021 Last Documented On 1 9:04PM ; [facility] No diagnosis of history of convulsive di sorder 03/10/2021 Last Documented On 9:04PM ; [facility] No diagnosis of history of diabetes edna itus 03/10/2021 Last Documented On 1 9:04PM ; [facility] No diagnosis of history of hypertension 03/10/2021 Last Documented On 1 9:04PM ; [facility] No diagnosis of history of sexually can smitted disease 03/10/2021 Last Documented On 1 9:04PM ; [facility] No diagnosis of history of stroke syndro me 03/10/2021 Last Documented On 1 9:04PM ; [facility] No reported cardiovascular symptoms 02/11 Last Documented On 1 9:04PM ; [facility] No reported easy bleeding 03/10/2021 Last Documented On 1 9:04PM ; [facility] No reported recurrent infections Last Documented On 1 9:04PM ; [facility] Has had no fall in the last 12 months. 0 03/10/2021 Last Documented On 1 9:04PM ; [facility] Family History Includes: Family History addressed during this encounter Description Last Updated Family history of alcoholism 03/10/2021 Last Documented On 1 9:04PM ; [facility] Family history of diabetes mellitus 02/11 Last Documented On 1 9:04PM ; [facility] Family history of heart disease 03/10/20 21 Last Documented On 1 9:04PM ; [facility] Family history of mental illness (not in tellectual disabilities) 03/10/2021 Last Documented On 1 9:04PM ; [facility] Father 52 years old 03/10/2021 Last Documented On 1 9:04PM ; [facility] Maternal grandfather is not Last Documented On 1 9:04PM ; [facility] Maternal grandmother is 021 Last Documented On 1 9:04PM ; [facility] Mother 50 years old 03/10/2021 Last Documented On 1 9:04PM ; [facility] No family history of defects 03/10 Last Documented On 1 9:04PM ; [facility] No family history of bleeding problems 0 03/10/2021 Last Documented On 1 9:04PM ; [facility] No family history of cancer 03/10/2021 Last Documented On 1 9:04PM ; [facility] No family history of genetic disease Last Documented On 1 9:04PM ; [facility] No family history of kidney disease 02/11 Last Documented On 1 9:04PM ; [facility] Paternal grandfather is Last Documented On 1 9:04PM ; [facility] Paternal grandmother is not Last Documented On 1 9:04PM ; [facility] Family history unchanged 03/10/2021 Last Documented On 1 9:04PM ; [facility] Review of Systems Includes: Review of [...] PATIENT EXAM - ADULT TESSA OLIVARES-BRE Z FREIGHT CAR BUILDER-C [facility] 03/10/20 21 2:46PM 4:42PM Fatigue,Abdo aruna Pain Insurance Includes: Active Insurance Policies Plan Name Member ID Group # Subscriber Relationship Effect patience Dates 1 - [facility] [id number] CADEN QURESHI Self Clinical Notes Includes: Clinical Notes from this encounter No Clinical Notes Recorded
--- OUTSIDE RECORDS SUMMARY | 2024-11-18 09:35 | XMS_ITS ---
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 Name Role Phone GÓMEZ MIDDLETON-TESSA Wallace Primary Care Provider [phone] DUSTY CUETO, DERIK Unavailable [phone] Plan of Treatment Instructions to patient Intervention and counseling on cessation of tobacco use Last Documented On 1 3:33PM ; [facility] Lose weight Last Documented On 1 3:33PM ; [facility] Assessments Includes: Assessments for all patient encounters Findings Encounter Date Abdominal pain NEW PATIENT EXAM - A DULT with TESSA MIDDLETON-C 03/10/2021 Last Documented On 1 9:04PM ; [facility] Fatigue NEW PATIENT EXAM - ADULT with ST FITZPATRICKJONAH Darshan HARDYP-C 03/10/2021 Last Documented On 1 9:04PM ; [facility] Instructions Includes: Instructions for all patient encounters Instructions to patient Intervention and counseling on cessation of tobacco use Last Documented On 1 3:33PM ; [facility] Lose weight Last Documented On 3:33PM ; [facility] Medical Equipment - Implanted Devices Includes: Current and historical Devices No Medical Equipment Recorded Medications Includes: Current and historical Medications Current Medications (continue as prescribed) Venlafaxine HCl ER 37.5 MG Oral Capsule Extended Release 24 Hour 03/10/2021 Provider: TESSA HARDYP-C Diagnosis: Adjustment disor susana with depressed mood 1 capsule daily Last Documented On 1 4:37PM By Tessa MCKEON ; [facility] Pantoprazole Sodium 20 MG Oral Tablet Delayed Release 03/10/2021 Provider: TESSA MCKEON Diagnosis: Gastro-esophagea l reflux dis with esophagitis, without bleed One tablet daily Last Documented On 1 4:37PM By Tessa MCKEON ; [facility] Medications Administered Includes: Administered Medications in patient's chart No Administered Medications Recorded Results Includes: Results from 11/19/2023 through 11/18/2024 No Results Recorded For Specified Dates History of Present Illness History of Present Illness not supported for this document type No History of Present Illness Recorded Social History Description Last Updated Smoking status : Current everyday smoker 03/10/2021 Last Documented On 9:04PM ; [facility] No consumption of alcohol but has a hist ory 03/10/2021 Last Documented On 9:04PM ; [facility] Not using drugs but has a history 2020 Last Documented On 9:04PM ; [facility] Current smoker 03/10/2021 Last Documented On 9:04PM ; [facility] Cigarette smoking 1 pack(s)/day 15 year s 03/10/2021 Last Documented On 1 9:04PM ; [facility] Exercise frequency Some 03/10/2021 Last Documented On 1 9:04PM ; [facility] Single 03/10/2021 Last Documented On 1 9:04PM ; [facility] Tobacco use 03/10/2021 Last Documented On 9:04PM ; [facility] Social history unchanged 03/10/2021 Last Documented On 9:04PM ; [facility] Procedures and Surgical History Surgical History Last Updated History of tubal ligation May 2017 0 03/10/2021 Last Documented On 9:04PM ; [facility] Medical History Includes: Medical History in patient's chart Description Last Updated Born by section March 2016 Last Documented On 1 9:04PM ; [facility] No diagnosis of history of arthritis Last Documented On 1 9:04PM ; [facility] No diagnosis of history of cancer 2020 Last Documented On 1 9:04PM ; [facility] No diagnosis of history of chronic obstr uctive pulmonary disease 03/10/2021 Last Documented On 1 9:04PM ; [facility] No diagnosis of history of convulsive di sorder 03/10/2021 Last Documented On 1 9:04PM ; [facility] No diagnosis of history of diabetes edna itus 03/10/2021 Last Documented On 1 9:04PM ; [facility] No diagnosis of history of hypertension 03/10/2021 Last Documented On 1 9:04PM ; [facility] No diagnosis of history of sexually can smitted disease 03/10/2021 Last Documented On 1 9:04PM ; [facility] No diagnosis of history of stroke syndro me 03/10/2021 Last Documented On 1 9:04PM ; [facility] No reported cardiovascular symptoms 02/11 Last Documented On 1 9:04PM ; [facility] No reported easy bleeding 03/10/2021 Last Documented On 1 9:04PM ; [facility] No reported recurrent infections 021 Last Documented On 1 9:04PM ; [facility] Has had no fall in the last 12 months. 0 03/10/2021 Last Documented On 1 9:04PM ; [facility] Family History Includes: Family History in patient's chart Description Last Updated Family history of alcoholism 03/10/2021 Last Documented On 1 9:04PM ; [facility] Family history of diabetes mellitus 02/11 Last Documented On 1 9:04PM ; [facility] Family history of heart disease 03/10/20 21 Last Documented On 1 9:04PM ; [facility] Family history of mental illness (not in tellectual disabilities) 03/10/2021 Last Documented On 1 9:04PM ; [facility] Father 52 years old 03/10/2021 Last Documented On 1 9:04PM ; [facility] Maternal grandfather is not Last Documented On 1 9:04PM ; [facility] Maternal grandmother is 021 Last Documented On 1 9:04PM ; [facility] Mother 50 years old 03/10/2021 Last Documented On 9:04PM ; [facility] No family history of defects 03/10 Last Documented On 1 9:04PM ; [facility] No family history of bleeding problems 0 03/10/2021 Last Documented On 1 9:04PM ; [facility] No family history of cancer 03/10/2021 Last Documented On 1 9:04PM ; [facility] No family history of genetic disease Last Documented On 1 9:04PM ; [facility] No family history of kidney disease 02/11 Last Documented On 1 9:04PM ; [facility] Paternal grandfather is 021 Last Documented On 1 9:04PM ; [facility] Paternal grandmother is not Last Documented On 1 9:04PM ; [facility] Family history unchanged 03/10/2021 Last Documented On 1 9:04PM ; [facility] Review of Systems Review of Systems not [...] Subscriber Relationship Effect patience Dates 1 - [facility] [id number] CADEN QURESHI Self Clinical Notes Includes: Signed Clinical Notes starting from 08/31/2022 No Clinical Notes Recorded
--- OUTSIDE RECORDS SUMMARY | 2024-11-18 09:35 | XMS_ITS | Clinical Summary ---
Author Organization [facility] Address [address] [place] [address] Phone Care Team Providers Care Family Nurse Name Role Phone TESSA GATES Primary Care Provider [phone] DUSTY CUETO, DERIK Unavailable [phone] Reason for Visit and Chief Complaint CHECK [...] On 1 4:37PM By Tessa MCKEON ; [facility] Pantoprazole Sodium 20 MG Oral Tablet Delayed Release 03/10/2021 Provider: TESSA MCKEON Diagnosis: Gastro-esophagea l reflux dis with esophagitis, without bleed One tablet daily Last Documented On 1 4:37PM By Tessa MCKEON ; [facility] Medications Administered Includes: [...] Subscriber Relationship Effect patience Dates 1 - [facility] [id number] CADEN QURESHI Self Clinical Notes Includes: Clinical Notes from this encounter No Clinical Notes Recorded
--- OUTSIDE RECORDS SUMMARY | 2024-11-18 09:35 | XMS_ITS | Clinical Summary ---
Author Organization [facility] Address [address] [place] [address] Phone Care Team Providers Care Medical Social Consultant Name Role Phone TESSA GATES Primary Care Provider [phone] DUSTY CUETO, DERIK Unavailable [phone] [...] 4:37PM By Tessa MCKEON ; [facility] Pantoprazole Sodium 20 MG Oral Tablet Delayed Release 03/10/2021 Provider: TESSA MCKEON Diagnosis: Gastro-esophagea l reflux dis with esophagitis, without bleed One tablet daily Last Documented On 1 4:37PM By Tessa MCKEON ; [facility] Medications Administered Includes: Administered Medications [...] Subscriber Relationship Effect patience Dates 1 - [facility] [id number] CADEN QURESHI Self Clinical Notes Includes: Clinical Notes from this encounter No Clinical Notes Recorded
--- OUTSIDE RECORDS SUMMARY | 2024-11-18 09:35 | XMS_ITS | Clinical Summary ---
Author Organization [facility] Address [address] [place] [address] Phone Care Team Providers Care Angle Shear Operator Name Role Phone TESSA GATES Primary Care Provider [phone] DUSTY CUETO, DERIK Unavailable [phone] Reason for Visit and [...] On 1 4:37PM By Tessa MCKEON ; [facility] Pantoprazole Sodium 20 MG Oral Tablet Delayed Release 03/10/2021 Provider: TESSA MCKEON Diagnosis: Gastro-esophagea l reflux dis with esophagitis, without bleed One tablet daily Last Documented On 1 4:37PM By Tessa MCKEON ; [facility] Medications Administered Includes: Administered Medications [...] Check-Out Time Diagnosis NO SHOW TESSA HARDYP-C [facility]- 1 10:06AM 11:59PM Insurance Includes: Active Insurance Policies Plan Name Member ID Group # Subscriber Relationship Effect patience Dates - [facility] [id number] CADEN QURESHI Self Clinical Notes Includes: Clinical Notes from this encounter No Clinical Notes Recorded
--- OUTSIDE RECORDS SUMMARY | 2024-11-18 09:35 | XMS_ITS | Patient Health Record ---
Author Organization [facility] Address [address] [place] [address] Care Team Providers Care Cook Chief Name Role Phone Liana Navarro Primary Care Provider Arnie Becker Unavailable [phone] Jeny Sue Unavailable [phone] Bambi Peacock Unavailable [phone] Annmarie North Unavailable [phone] Allergies Allergen (clinical drug ingredient) Drug/Non Drug Allergy documented on EMR Reaction Allergy Type Onset Date Status ibuprofen Ibuprofen Unknown Drug Allergy Active Results Component Value Reference Range Notes 12 Panel Urine Drug Screen Reviewed date:08/10/2024 01:10:30 PM Interpretation: Performing Lab: Notes/Report: THC POS ROSELIA neg MOP (OPI) neg AMP POS MET neg BAR neg BZO neg MDMA neg MTD neg OXY neg PCP neg BUP neg 12 Panel Urine Drug Screen Reviewed date:09/28/2024 04:02:57 PM Interpretation: Performing Lab: Notes/Report: THC POS ROSELIA neg MOP (OPI) neg AMP POS MET neg BAR neg BZO neg MDMA neg MTD neg OXY neg PCP neg BUP neg Test, Urine Reviewed date:08/10/2024 01:17:53 PM Interpretation:Negative Performing Lab: Notes/Report: Negative Test, Urine negative Negative - Negative 12 Panel Urine Drug Screen Reviewed date:07/13/2024 03:28:24 PM Interpretation: Performing Lab: Notes/Report: THC pos ROSELIA neg MOP (OPI) neg AMP pos MET neg BAR neg BZO neg MDMA neg MTD neg OXY neg PCP neg BUP neg Test, Urine Reviewed date:02/20/2024 10:58:30 AM Interpretation:Negative Performing Lab: Notes/Report: Negative Test, Urine negative Negative - Negative 12 Panel Urine Drug Screen Reviewed date:02/20/2024 10:56:54 AM Interpretation: Performing Lab: Notes/Report: THC neg ROSELIA neg MOP (OPI) neg AMP neg MET neg BAR neg BZO neg MDMA neg MTD neg OXY neg PCP neg BUP neg Reason For Referral No Information Medications Medication SIG (Take, Route, Frequency, Duration) Notes Start Date End Date Status Pilocarpine HCl 5 MG 1 tablet Orally Twi ce daily for 30 days Active OLANZapine 5 MG 0.5-1 tablet on the tongue and allow to dissolve Orally Once a day for 30 days Active Invega Sustenna 234 MG/1.5ML 1.5 mL Intramuscular every 28 days for 28 days Active Omeprazole 20 MG 1 capsule 1/2 to 1 h our before morning meal Orally Once a day Active Amphetamine-Dextroampheta mine 20 MG 1 tablet Orally Once a day for 30 days in the afternoon 10/28/2024 Active Venlafaxine HCl ER 150 MG 1 capsule with food Orally Once a day for 30 days Active Vivitrol 380 MG 380 MG Intramuscular EVERY 28 DAYS 02/20/2024 Active Amphetamine-Dextroampheta mine 30 MG 1 tablet Orally Once a day for 30 days in the morning 10/28/2024 Active Gabapentin 300 MG 1 capsule Orally thr ee times a day for 30 days Active Amphetamine-Dextroampheta mine 20 MG 1 tablet Orally Once a day for 30 days in the afternoon 09/30/2024 Active Amphetamine-Dextroampheta mine 30 MG 1 tablet Orally Twice a day for 30 days 11/09/2024 Active Amphetamine-Dextroampheta mine 30 MG 1 tablet Orally Once a day for 30 days in the morning 09/30/2024 Active Amphetamine-Dextroampheta mine 20 MG 1 tablet Orally Once daily in the afternoon for 7 days 09/02/2024 Acti ve traZODone HCl 100 MG 2 tablets at bedtim e as needed Orally Once a day for 30 days Active Venlafaxine HCl 100 MG 1 tablet with ludmila d Orally Once a day for 30 days Active Naltrexone HCl 50 MG 0.5 tablet Orally Once 2023 Active Invega Sustenna 234 MG/1.5ML 1.5 mL Intramuscular one time for 30 days 10/02/2024 Active Social History Tobacco Use: Social History [...] user Moderate cigar ette smoker (10-19 cigs/day) Problems Problem Type SNOMED Code ICD Code Onset Dates Problem Status W/U Status Risk Notes Problem Tobacco user (806256882) Nicotine dependence, unspecified, uncomplicated (F17.200) Active confirmed Problem 59583582 PTSD (post-traumatic stress disorder) (F43.10) Active confirmed Problem 32632994 LJ (generalized anxiety disorder) (F41.1) Active confirmed Problem Alcohol use disorder (4264437321) Alcohol use disorder (F10.99) Active confirmed Problem 51896909 Severe episode of recurrent major depressive disorder, without psychotic features (F33.2) Active confirmed Problem Bipolar II disorder (69260941) Bipolar 2 disorder, major depressive episode (F31.81) Active confirmed Problem Attention deficit hyperactivity disorder (309710199) Adult ADHD (F90.9) Active confirmed has reported hx of ADHD and poor concentration in the past. Problem Nicotine use disorder (3843399406) Nicotine use disorder (F17.200) Active confirmed Problem Dyssomnia (20016806) Sleep disturbances (G47.9) Active confirmed Problem 87612938 Oral heather (B37.0) Active confirmed Vital Signs Heart Rate 82 /min 11/09/2024 Temperature 98.6 degrees Fahrenheit 11/09/2024 Respiratory Rate 16 /min 11/09/2024 Blood pressure diastolic 78 mm Hg 11/09/2024 Oximetry 96 % 11/09/2024 Height 61 in 11/09/2024 Blood pressure systolic 118 mm Hg 11/09/2024 Weight 181.0 lbs 11/09/2024 BMI 34.2 kg/m2 11/09/2024 Encounters Encounter Location Date Provider Diagnosis [address] [place] [address] 11/27/2023 Liana Navarro Bipolar 2 disorder, major depressive episode F31.[address] [place] [address] 12/04/2023 Liana Navarro Bipolar 2 disorder, major depressive episode F31.81 ; Sleep disturbances G47.9 ; Adult ADHD F90.9 ; LJ (generalized anxiety disorder) F41.1 and Alcohol use disorder F10.[address] [place] [address] 01/01/2024 Liana Navarro Bipolar 2 disorder, major depressive episode F31.[address] [place] [address] 01/22/2024 Liana Navarro Bipolar 2 disorder, major depressive episode F31.81 ; Sleep disturbances G47.9 ; Adult ADHD F90.9 ; LJ (generalized anxiety disorder) F41.1 and Alcohol use disorder F10.[address] [place] [address] 01/29/2024 Liana Navarro Bipolar 2 disorder, major depressive episode F31.[address] [place] [address] 02/20/2024 Arnie Becker Alcohol use disorder F10.[address] [place] [address] 02/26/2024 Liana Navarro Bipolar 2 disorder, major depressive episode F31.[address] [place] [address] 03/25/2024 Liana Navarro Bipolar 2 disorder, major depressive episode F31.[address] [place] [address] 04/23/2024 Liana Navarro Bipolar 2 disorder, major depressive episode F31.[address] [place] [address] 04/30/2024 Liana Ramon Bipolar 2 disorder, major depressive episode F31.81 ; Sleep disturbances G47.9 ; Adult ADHD F90.9 ; LJ (generalized anxiety disorder) F41.1 and Alcohol use disorder F10.[address] [address] 05/20/2024 Liana Rocannan Bipolar 2 disorder, major depressive episode F31.81 [address] [place] [address] 06/02/2024 Liana Rocannan Bipolar 2 disorder, major depressive episode F31.81 ; Sleep disturbances G47.9 ; Adult ADHD F90.9 ; LJ (generalized anxiety disorder) F41.1 and Alcohol use disorder F10.[address] [address] 06/17/2024 Liana Rocannan Bipolar 2 disorder, major depressive episode F31.[address] [address] 07/13/2024 Liana Rocannan Bipolar 2 disorder, major depressive episode F31.81 ; Sleep disturbances G47.9 ; Adult ADHD F90.9 ; LJ (generalized anxiety disorder) F41.1 and Alcohol use disorder F10.[address] [address] 08/10/2024 Liana Rocannan Bipolar 2 disorder, major depressive episode F31.[address] [address] 08/10/2024 Annmarie North Alcohol use disorder F10.[address] [address] 09/02/2024 Lianasigrid RocaRamon Bipolar 2 disorder, major depressive episode F31.81 ; Sleep disturbances G47.9 ; Adult ADHD F90.9 ; LJ (generalized anxiety disorder) F41.1 and Alcohol use disorder F10.[address] [address] 09/28/2024 Annmarie North Alcohol use disorder F10.99 ; Exposure to potential infection Z20.9 and Nutritional counseling Z71.[address] [place] [address] 10/05/2024 Liana Navarro Bipolar 2 disorder F31.[address] [place] [address] 10/13/2024 Liana Navarro Bipolar 2 disorder, major depressive episode F31.[address] [address] 11/09/2024 Liana Navarro Bipolar 2 disorder, major depressive episode F31.81 ; Sleep disturbances G47.9 ; Adult ADHD F90.9 ; LJ (generalized anxiety disorder) F41.1 and Alcohol use disorder F10.[address] [address] 11/27/2023 Liana Navarro [address] [address] 11/27/2023 Liana Navarro Bipolar 2 disorder, major depressive episode F31.[address] [address] 12/09/2023 Lianasigrid Navarro [address] [address] 12/24/2023 Liana Navarro [address] [address] 01/07/2024 Liana Navarro Adult ADHD F90.[address] [place] [address] 02/25/2024 Jeny Sue Bipolar 2 disorder, major depressive episode F31.81 ; LJ (generalized anxiety disorder) F41.1 ; Sleep disturbances G47.9 and Adult ADHD F90.[address] [address] 02/26/2024 Lianasigrid Navarro [facility] [address] [place] [address] 02/26/2024 Liana Navarro Bipolar 2 disorder, major depressive episode F31.81 Formerly [facility] [address] [place] [address] 03/25/2024 Jeny Sue Adult ADHD F90.[address] [place] [address] 04/22/2024 Liana Navarro Adult ADHD F90.9 Formerly [facility] [address] [place] [address] 07/03/2024 Jeny Sue Bipolar 2 disorder, major depressive episode F31.81 ; Adult ADHD F90.9 ; LJ (generalized anxiety disorder) F41.1 and Sleep disturbances G47.[address] [place] [address] 08/10/2024 Liana Navarro Bipolar 2 disorder, major depressive episode F31.81 ; Adult ADHD F90.9 ; LJ (generalized anxiety disorder) F41.1 and Sleep disturbances G47.[address] [place] [address] 08/20/2024 Liana Navarro Bipolar 2 disorder, major depressive episode F31.81 ; Adult ADHD F90.9 and LJ (generalized anxiety disorder) F41.[address] [place] [address] 08/24/2024 Liana Navarro Bipolar 2 disorder, major depressive episode F31.81 ; LJ (generalized anxiety disorder) F41.1 and Sleep disturbances G47.[address] [place] [address] 09/28/2024 Liana Navarro Bipolar 2 disorder, major depressive episode F31.[address] [place] [address] 09/30/2024 Liana Navarro [address] [place] [address] 11/02/2024 Liana Navarro Adult ADHD F90.9 Assessments Encounter Date Diagnosis (ICD Code) Assessment Notes Treatment Notes Treatment Clinical Notes Section Notes 11/27/2023 Bipolar 2 disorder, major depressive episode (ICD-10 - F31.81) 11/27/2023 Bipolar 2 disorder, major depressive episode (ICD-10 - F31.81) 12/04/2023 Bipolar 2 disorder, major depressive episode (ICD-10 - F31.81) 01/01/2024 Bipolar 2 disorder, major depressive episode (ICD-10 - F31.81) 01/07/2024 Adult ADHD (ICD-10 - F90.9) 01/22/2024 Bipolar 2 disorder, major depressive episode (ICD-10 - F31.81) 01/29/2024 Bipolar 2 disorder, major depressive episode (ICD-10 - F31.81) 02/20/2024 Alcohol use disorder (ICD-10 - F10.99) NALTREXONE CHALLENGE THEN BEGIN VIVITROL MARYCARMEN HAD NO QUESTIONS REGARDING THE PROCESS OR MEDICATION NICOLE Marmolejo, Martha Borges 02/20/2024 11:26:[address] Becker Start Naltrexone 25mg tablet self administered under the supervision of NICOLE Key RN, Martha Borges 02/20/2024 11:46:52 AM , Pt denies any side effects to the Naltrexone, reported to Dr. Becker and may go ahead with first Vivitrol injection, NICOLE Key RN, Martha Borges 02/20/2024 11:58:52 AM CDT >Pt denies any side effects from the first Vivitrol injection, reported to Dr. Becker and may be discharged to home, Martha Marmolejo RN 02/25/2024 Bipolar 2 disorder, major depressive episode (ICD-10 - F31.81) 02/26/2024 Bipolar 2 disorder, major depressive episode (ICD-10 - F31.81) 02/26/2024 Bipolar 2 disorder, major depressive episode (ICD-10 - F31.81) 03/25/2024 Bipolar 2 disorder, major depressive episode (ICD-10 - F31.81) 03/25/2024 Adult ADHD (ICD-10 - F90.9) 04/22/2024 Adult ADHD (ICD-10 - F90.9) 04/23/2024 Bipolar 2 disorder, major depressive episode (ICD-10 - F31.81) 04/30/2024 Bipolar 2 disorder, major depressive episode (ICD-10 - F31.81) Discussed possible Invega increase, will monitor 05/20/2024 Bipolar 2 disorder, major depressive episode (ICD-10 - F31.81) 06/02/2024 Bipolar 2 disorder, major depressive episode (ICD-10 - F31.81) Discussed possible Invega increase, will monitor 07/03/2024 Bipolar 2 disorder, major depressive episode (ICD-10 - F31.81) 06/17/2024 Bipolar 2 disorder, major depressive episode (ICD-10 - F31.81) 07/13/2024 Bipolar 2 disorder, major depressive episode (ICD-10 - F31.81) Possible Invega increase, will monitor 08/10/2024 Alcohol use disorder (ICD-10 - F10.99) Gayle Hernandez RN 08/10/2024 01:36:59 PM STRIKE PLATE ATT[employer]ER > Oral naltrexone 25mg (1/2 50mg tablet) self-administered under the observation of this nurse. Gayle Hernandez RN 08/10/2024 02:26:46 PM STRIKE PLATE ATT[employer]ER > Pt denies side effects to oral naltrexone and reports feeling fine. Okay given to proceed with Vivitrol. 08/10/2024 Bipolar 2 disorder, major depressive episode (ICD-10 - F31.81) 08/10/2024 Bipolar 2 disorder, major depressive episode (ICD-10 - F31.81) Gayle Hernandez RN 08/10/2024 02:41:09 PM STRIKE PLATE ATT[employer]ER >Verbal order received from Liana Navarro to administer today. Psych follow-up visit scheduled for 08/17/24. 08/20/2024 Bipolar 2 disorder, major depressive episode (ICD-10 - F31.81) 08/24/2024 Bipolar 2 disorder, major depressive episode (ICD-10 - F31.81) 09/02/2024 Bipolar 2 disorder, major depressive episode (ICD-10 - F31.81) Possible Invega increase, will monitor 09/28/2024 Exposure to potential infection (ICD-10 - Z20.9) 09/28/2024 Bipolar 2 disorder, major depressive episode (ICD-10 - F31.81) 10/05/2024 Bipolar 2 disorder (ICD-10 - F31.81) 10/13/2024 Bipolar 2 disorder, major depressive episode (ICD-10 - F31.81) 11/02/2024 Adult ADHD (ICD-10 - F90.9) 09/28/2024 Alcohol use disorder (ICD-10 - F10.99) 11/09/2024 Bipolar 2 disorder, major depressive episode [...] be 100% safe for baby or mother. 09/28/2024 Nutritional counseling (ICD-10 - Z71.3) 07/13/2024 Sleep disturbances (ICD-10 - G47.9) Increasing trazodone as client reports this was the most helpful Hx: trazodone 300mg with moderate efficacy and increase in appetite Mirtazapine and Quetiapine with poor efficacy and appetite increase Doxepin at 10 mg not efficacious 09/02/2024 Sleep disturbances (ICD-10 - G47.9) Continue trazodone as client reports this was the most helpful Hx: trazodone 300mg with moderate efficacy and increase in appetite Mirtazapine and Quetiapine with poor efficacy and appetite increase Doxepin at 10 mg not efficacious 11/09/2024 Sleep disturbances (ICD-10 - G47.9) Continue trazodone as client reports this was the most helpful Hx: trazodone 300mg with moderate efficacy and increase in appetite Mirtazapine and Quetiapine with poor efficacy and appetite increase Doxepin at 10 mg not efficacious 08/20/2024 Adult ADHD (ICD-10 - F90.9) 08/24/2024 LJ (generalized anxiety disorder) (ICD-10 - F41.1) 08/10/2024 Adult ADHD (ICD-10 - F90.9) 07/03/2024 Adult ADHD (ICD-10 - F90.9) 04/30/2024 Sleep disturbances (ICD-10 - G47.9) Discussed r/b/se. Hx: trazodone 300mg with moderate to low efficacy and increase in appetite, mirtazapine and quetiapine with poor efficacy and appetite increase Doxepin at 10 mg not efficacious 06/02/2024 Sleep disturbances (ICD-10 - G47.9) Restarting trazodone as client reports this was the most helpful Hx: trazodone 300mg with moderate efficacy and increase in appetite Mirtazapine and Quetiapine with poor efficacy and appetite increase Doxepin at 10 mg not efficacious 01/22/2024 Sleep disturbances (ICD-10 - G47.9) Discussed r/b/se. Hx: trazodone 300mg with moderate to low efficacy and increase in appetite, mirtazapine and quetiapine with poor efficacy and appetite increase 02/25/2024 LJ (generalized anxiety disorder) (ICD-10 - F41.1) 12/04/2023 Sleep disturbances (ICD-10 - G47.9) Discussed r/b/se. Hx: trazodone 300mg with moderate to low efficacy and increase in appetite, mirtazapine with poor efficacy 12/04/2023 Adult ADHD (ICD-10 - F90.9) has reported hx of ADHD and poor concentration in the past. PDMP checked without concerns. May fill. Reports doing well with taking two 15mg IR in AM without concerns in afternoon until around 6-7 pm. Discussed to talk with provider before attempting any changes. Dose adjusted. 01/22/2024 Adult ADHD (ICD-10 - F90.9) has reported hx of ADHD and poor concentration in the past. PDMP checked without concerns. May fill. Reports doing well with this dose 02/25/2024 Sleep disturbances (ICD-10 - G47.9) 06/02/2024 Adult ADHD (ICD-10 - F90.9) has reported hx of ADHD and poor concentration in the past. PDMP checked without concerns. Increasing with afternoon dose 04/30/2024 Adult ADHD (ICD-10 - F90.9) has reported hx of ADHD and poor concentration in the past. PDMP checked without concerns. Increasing with adding afternoon dose 07/13/2024 Adult ADHD (ICD-10 - F90.9) has reported hx of ADHD and poor concentration in the past. PDMP checked without concerns. 07/03/2024 LJ (generalized anxiety disorder) (ICD-10 - F41.1) 08/10/2024 LJ (generalized anxiety disorder) (ICD-10 - F41.1) 08/20/2024 LJ (generalized anxiety disorder) (ICD-10 - F41.1) 09/02/2024 Adult ADHD (ICD-10 - F90.9) has reported hx of ADHD and poor concentration in the past. PDMP checked without concerns. recent UDS with MAR reviewed, no concerns. 08/24/2024 Sleep disturbances (ICD-10 - G47.9) 11/09/2024 Adult ADHD (ICD-10 - F90.9) has reported hx of ADHD and poor concentration in the past. PDMP checked without concerns. 11/09/2024 LJ (generalized anxiety disorder) (ICD-10 - F41.1) 09/02/2024 LJ (generalized anxiety disorder) (ICD-10 - F41.1) 08/10/2024 Sleep disturbances (ICD-10 - G47.9) 07/03/2024 Sleep disturbances (ICD-10 - G47.9) 07/13/2024 LJ (generalized anxiety disorder) (ICD-10 - F41.1) 06/02/2024 LJ (generalized anxiety disorder) (ICD-10 - F41.1) 04/30/2024 LJ (generalized anxiety disorder) (ICD-10 - F41.1) 02/25/2024 Adult ADHD (ICD-10 - F90.9) 01/22/2024 LJ (generalized anxiety disorder) (ICD-10 - F41.1) 12/04/2023 LJ (generalized anxiety disorder) (ICD-10 - F41.1) 12/04/2023 Alcohol use disorder (ICD-10 - F10.99) Reports sobriety is going well, continue therapy. 01/22/2024 Alcohol use disorder (ICD-10 - F10.99) Reports sobriety is going well, continue therapy. 04/30/2024 Alcohol use disorder (ICD-10 - F10.99) Reports sobriety is going well, continue therapy. 06/02/2024 Alcohol use disorder (ICD-10 - F10.99) Reports sobriety is going well, continue therapy. 07/13/2024 Alcohol use disorder (ICD-10 - F10.99) Reports sobriety is going well, continue therapy. 09/02/2024 Alcohol use disorder (ICD-10 - F10.99) Reports sobriety is going well, continue therapy. 11/09/2024 Alcohol use disorder (ICD-10 - F10.99) Reports sobriety is going well, continue therapy. 12/04/2023 Other Reasons, potential benefits, potential risks, interactions [...] May also contact the 24-hour crisis hotline ([facility]), refer to the closest emergency room or [...] of education, treatment plan and follow up. This session was completed telephonically with client/parental/guar courtney consent: Unable to determine movement status, assess appearance, affect, AIMS, or vital signs. 01/22/2024 Other Reasons, potential benefits, potential risks, interactions [...] May also contact the 24-hour crisis hotline ([facility]), refer to the closest emergency room or [...] of education, treatment plan and follow up. This session was completed telephonically with client/parental/guar courtney consent: Unable to determine movement status, assess appearance, affect, AIMS, or vital signs. 04/30/2024 Other Reasons, potential benefits, potential risks, interactions [...] May also contact the 24-hour crisis hotline ([facility]), refer to the closest emergency room or [...] of education, treatment plan and follow up. This session was completed telephonically with client/parental/guar courtney consent: Unable to determine movement status, assess appearance, affect, AIMS, or vital signs. 06/02/2024 Other Reasons, potential benefits, potential risks, interactions [...] May also contact the 24-hour crisis hotline ([facility]), refer to the closest emergency room or [...] of education, treatment plan and follow up. This session was completed telephonically with client/parental/guar courtney consent: Unable to determine movement status, assess appearance, affect, AIMS, or vital signs. 07/13/2024 Other Reasons, potential benefits, potential risks, interactions [...] May also contact the 24-hour crisis hotline ([facility]), refer to the closest emergency room or [...] of education, treatment plan and follow up. 08/10/2024 Other Need JENSEN for PCP records/any labwork at next follow-up. Discussed medication side effects, adverse effects, risks, benefits, as well as interactions. Encouraged non-use of alcohol. Notify provider if having a procedure that may require pain medication. Has Vivitrol alert bracelet and wallet card. Carry written information with you at all times to alert healthcare providers that you are taking Vivitrol. Recommend participation in recovery groups, counseling services. Agrees to return to office in 28 days for next injection. Contact office with any questions or concerns. 09/02/2024 Other Reasons, potential benefits, potential risks, interactions [...] May also contact the 24-hour crisis hotline ([facility]), refer to the closest emergency room or [...] of education, treatment plan and follow up. This session was completed telephonically with client/parental/guar courtney consent: Unable to determine movement status, assess appearance, affect, AIMS, or vital signs. 09/28/2024 Other Discussed medication side effects, adverse effects, risks, benefits, as well as interactions. Encouraged non-use of alcohol. Notify provider if having a procedure that may require pain medication. Has Vivitrol alert bracelet and wallet card. Carry written information with you at all times to alert healthcare providers that you are taking Vivitrol. Recommend participation in recovery groups, counseling services. Agrees to return to office in 28 days for next injection. Contact office with any questions or concerns. Patient may self-administ er their own medications or may self-administ er their own oral medications per [place] Protocol. 11/09/2024 Other Reasons, potential benefits, potential risks, [...] May also contact the 24-hour crisis hotline ([facility]), refer to the closest emergency room or [...] plan and follow up. Plan Of Treatment Future Test Test Name Order Date HIV Screen *HIV 1, 2 Ab, p24 Ag ([id number]) 10/27/2024 CBC With Differential/Platelet* 10/28/19 25 Hepatitis B Surf Ab Quant* 10/27/2024 Hepatitis C Virus Antibody w/Rflx to [facility] ntitative Real-time PCR ([id number]) 10/27/2024 CMP 14 Comprehensive Metabolic Panel* QuantiFERON-TB Gold Plus ([id number]) 2024 RPR w/reflex to TrepSure 10/27/2024 Next Appt Details Provider Name:Liana disla, 12/07/2024 03:20:00 PM, [address] [facility], [place], [address], Insurance Providers Payer Name Payer Address Payer Phone Subscriber Number Group Number Insured Name Patient Relationship to Insured Coverage Start Date Coverage End Date [employer] [address] [place] [phone] [id number] Marycarmen Price Self - patient is the insured 8 [employer] [address] [place] [address] [id number] Sayra Priceyl Self - patient is the insured 2 [employer] [address] [place] [phone] [id number] Dee, Marycarmen Self - patient is the insured 2 Medications Administered Medication Instructions Date of Administration Dosage Notes Invega Sustenna 02/13/2023 234 mg Pt tracy we ll. Sample used. Invega Sustenna 02/21/2023 156 mg Patient t olerated well Invega Sustenna 03/21/2023 156 mg Pt tolera garima injection well. Invega Sustenna 04/19/2023 234 mg Pt tolera garima injection well. Invega Sustenna 05/31/2023 156 mg Pt tolera garima injection well. Invega Sustenna 06/28/2023 156 mg Invega Sustenna 07/26/2023 156 mg Invega Sustenna 09/13/2023 156 mg Pt tolera garima injection well. Invega Sustenna 10/30/2023 156 mg Invega Sustenna 11/27/2023 156 mg Invega Sustenna 01/01/2024 156 mg Invega Sustenna 01/29/2024 156 mg Invega Sustenna 02/26/2024 156 mg Invega Sustenna 03/25/2024 156 mg Invega Sustenna 04/23/2024 156 mg Invega Sustenna 05/20/2024 156 mg Invega Sustenna 06/17/2024 156 mg Invega Sustenna 07/13/2024 156 mg Invega Sustenna 08/10/2024 156 mg Mary Gayle RIVERA 08/10/2024 02:40:08 PM STRIKE PLATE ATT[employer]ER >Verbal order given by Liana Navarro to adminiser, as pt reported doing fine on current medications. Pt tolerated the injection well. Invega Sustenna 10/05/2024 234 mg patient t olerated well Invega Sustenna 10/13/2024 156 mg Patient t olerated well Invega Sustenna 11/09/2024 234 mg Pt tracy we ll. Sample used. Vivitrol 09/20/2021 380 mg Pt. tolerated well. Has been on naltroxone. Pt. verbalized understanding to massage injection site well and of Vivitrol education provided. Bracelet/necklace for Vivitrol given to pt. No questions or concerns at this time. Vivitrol 10/18/2021 380 mg Pt. tolerated well and verbalized understanding to massage injection site well. No questions or concerns at this time. Vivitrol 11/14/2021 380 mg Pt. tolerated well and verbalized understanding to massage injection site well. No questions or concerns at this time. Vivitrol 12/14/2021 380 mg Pt. tolerated well and verbalized understanding to massage injection site well. No questions or concerns at this time. Vivitrol 02/01/2022 380 mg Pt tolerated i njection well. Voiced no questions or concerns. 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 Vivitrol 09/28/2024 380 mg Angeline Stoll 09/28/2024 04:35:26 PM STRIKE PLATE ATT[employer]ER > Pt tolerated well. No s&s of adverse reaction. Medical (General) History Medical History History ICD Code AUD Surgical History Surgery Date(Month/Year) C section 2017 Exploratory surgery through my belly bu tton 2010 tubal ligation Hospitalization History Reason Date(Month/Year) childbirth x 3-2012 2013 2016
--- OUTSIDE RECORDS SUMMARY | 2024-11-18 09:36 | XMS_ITS ---
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
== END 2024-11-18 09:58 | disposition home or self-care (01) ==
PROVIDERS: Emergency Provider Nurse Practitioner Family; PCP Physician Assistant
DX: M54.16 Radiculopathy, lumbar region (principal); F17.210 Nicotine dependence, cigarettes, uncomplicated; F41.9 Anxiety disorder, unspecified; F32.A Depression, unspecified
CPT/HCPCS: 99213; G0463